=== PATIENT | male | born 1950 | race Caucasian/White ===

== ENCOUNTER → 2018-02-02 09:27 | Outpatient (CLI) | payer MEDICARE, SELFPAY ==
[2018-02-02 11:24] LABS: Alanine Aminotransferase 39 U/L (12-78); Albumin Level 3.8 gm/dL (3.4-5.0); Albumin/Globulin Ratio 1.2 (1.1-1.8); Alkaline Phosphatase 82 U/L (46-116); Anion Gap 16.1 mEq/L (5-15); Aspartate Amino Transferase 20 U/L (15-37); Bilirubin,Total 0.6 mg/dL (0.2-1.0); Blood Urea Nitrogen 13 mg/dL (7-18); Calcium 8.8 mg/dL (8.5-10.1); Carbon Dioxide 25 mmol/L (21.0-32.0); Chloride 106 mmol/L (98-107); Cholesterol 182 mg/dL (140-200); Creatinine,Serum 0.97 mg/dL (0.70-1.30); Estimated Glomerular Filt Rate 77 ml/min (>60); GFR (African American) 93 ML/MIN (>60); Globulin 3.1 gm/dl (1.3-3.2); Glucose 107 mg/dL (74-106); HDL Cholesterol 45 mg/dL (27-67); LDL Cholesterol 114 mg/dL (0-130); Potassium 4.1 mmoL/L (3.5-5.1); Sodium 143 mmol/L (136-145); Total Protein,Serum 6.9 gm/dL (6.4-8.2); Triglycerides 116 mg/dL (30-200); VLDL Cholesterol 23 mg/dL (0-40)
== END ==
PROVIDERS: Visit Provider Family Medicine
DX: E78.5 Hyperlipidemia, unspecified (principal)
CPT/HCPCS: 36415; 80053; 80061

== ENCOUNTER → 2018-07-30 08:36 | Outpatient (CLI) | payer MEDICARE, SELFPAY ==
[2018-07-30 09:55] LABS: Alanine Aminotransferase 39 U/L (12-78); Albumin Level 3.9 gm/dL (3.4-5.0); Albumin/Globulin Ratio 1.3 (1.1-1.8); Alkaline Phosphatase 76 U/L (46-116); Aspartate Amino Transferase 22 U/L (15-37); Blood Urea Nitrogen 12 mg/dL (7-18); Calcium 8.9 mg/dL (8.5-10.1); Carbon Dioxide 29 mmol/L (21.0-32.0); Chloride 107 mmol/L (98-107); Chol/HDL Ratio 4.1 (1-3.5); Cholesterol 192 mg/dL (140-200); Creatinine,Serum 0.97 mg/dL (0.70-1.30); Estimated Glomerular Filt Rate 77 ml/min (>60); GFR (African American) 93 ML/MIN (>60); Globulin 3.1 gm/dl (1.3-3.2); Glucose 104 mg/dL (74-106); HDL Cholesterol 47 mg/dL (27-67); LDL Cholesterol 115 mg/dL (0-130); Sodium 143 mmol/L (136-145); Triglycerides 152 mg/dL (30-200); VLDL Cholesterol 30 mg/dL (0-40)
== END ==
PROVIDERS: PCP Family Medicine; Visit Provider Family Medicine
DX: E78.5 Hyperlipidemia, unspecified (principal); Z12.5 Encounter for screening for malignant neoplasm of prostate
CPT/HCPCS: 36415; 80053; 80061; G0103

== ENCOUNTER → 2018-09-03 15:26 | Outpatient (CLI) | payer MEDICARE, SELFPAY ==
--- NOTE | 2018-09-03 15:31 | XR_ITS ---
XR chest 2V HISTORY: Cough ITS.REASON: ASTHMA ORDERING PHYSICIAN: Niko Watkins MD PATIENT AGE: 68 years Technique: PA and lateral chest COMPARISON: PA and lateral chest from 12/29/2012. Also portal chest from 03/24/2017. FINDINGS: The lungs appear well expanded clear with no active disease. Heart saw and mediastinal structures unremarkable. Chest wall T-spine unremarkable. Mild apical pleural parenchymal scarring and thickening. The cardiomediastinal silhouette and pulmonary vascularity are within normal limits. The lungs are clear without infiltrates, suspicious nodules, or pleural effusions. No acute bony abnormalities. IMPRESSION: Stable chest nothing definitely acute. Lungs clear.
== END ==
PROVIDERS: PCP Family Medicine; Visit Provider Family Medicine
DX: R53.83 Other fatigue (principal); J45.20 Mild intermittent asthma, uncomplicated
CPT/HCPCS: 71046

== ENCOUNTER → 2019-01-29 08:42 | Outpatient (CLI) | payer MEDICARE, SELFPAY ==
[2019-01-29 10:31] LABS: Alanine Aminotransferase 42 U/L (12-78); Albumin Level 3.9 gm/dL (3.4-5.0); Albumin/Globulin Ratio 1.3 (1.1-1.8); Alkaline Phosphatase 72 U/L (46-116); Anion Gap 12.1 mEq/L (5-15); Aspartate Amino Transferase 16 U/L (15-37); Bilirubin,Total 0.6 mg/dL (0.2-1.0); Blood Urea Nitrogen 7 mg/dL (7-18); Calcium 8.7 mg/dL (8.5-10.1); Carbon Dioxide 30 mmol/L (21.0-32.0); Chloride 107 mmol/L (98-107); Chol/HDL Ratio 3.9 (1-3.5); Cholesterol 170 mg/dL (140-200); Creatinine,Serum 1.06 mg/dL (0.70-1.30); Estimated Glomerular Filt Rate 69 ml/min (>60); GFR (African American) 84 ML/MIN (>60); Globulin 3.1 gm/dl (1.3-3.2); Glucose 101 mg/dL (74-106); HDL Cholesterol 44 mg/dL (27-67); LDL Cholesterol 91 mg/dL (0-130); Potassium 4.1 mmoL/L (3.5-5.1); Sodium 145 mmol/L (136-145); Triglycerides 174 mg/dL (30-200); VLDL Cholesterol 35 mg/dL (0-40)
[2019-02-05 07:07] LABS: Vitamin D 25 Hydroxy 24.7 ng/mL (30.0-100.0)
== END ==
PROVIDERS: Visit Provider Family Medicine
DX: E78.5 Hyperlipidemia, unspecified (principal)
CPT/HCPCS: 36415; 80053; 80061; 82652

== ENCOUNTER → 2019-08-02 09:31 | Outpatient (CLI) | payer MEDICARE, SELFPAY ==
[2019-08-02 13:08] LABS: Alanine Aminotransferase 36 U/L (12-78); Albumin Level 3.8 gm/dL (3.4-5.0); Albumin/Globulin Ratio 1.3 (1.1-1.8); Alkaline Phosphatase 67 U/L (46-116); Aspartate Amino Transferase 18 U/L (15-37); Bilirubin,Total 0.9 mg/dL (0.2-1.0); Blood Urea Nitrogen 8 mg/dL (7-18); Carbon Dioxide 30 mmol/L (21.0-32.0); Chloride 105 mmol/L (98-107); Chol/HDL Ratio 3.7 (1-3.5); Cholesterol 170 mg/dL (140-200); Creatinine,Serum 0.96 mg/dL (0.70-1.30); Estimated Glomerular Filt Rate 78 ml/min (>60); GFR (African American) 94 ML/MIN (>60); Glucose 93 mg/dL (74-106); HDL Cholesterol 46 mg/dL (27-67); LDL Cholesterol 96 mg/dL (0-130); Prostate Specific Ag Screen 1.1 ng/mL (0.0-4.0); Sodium 144 mmol/L (136-145); Total Protein,Serum 6.8 gm/dL (6.4-8.2); Triglycerides 140 mg/dL (30-200); VLDL Cholesterol 28 mg/dL (0-40)
[2019-08-03 20:05] LABS: Vitamin D 25 Hydroxy 34.4 ng/mL (30.0-100.0)
== END ==
PROVIDERS: Visit Provider Family Medicine
DX: E78.5 Hyperlipidemia, unspecified (principal); E55.9 Vitamin D deficiency, unspecified; Z12.5 Encounter for screening for malignant neoplasm of prostate
CPT/HCPCS: 36415; 80053; 80061; 82652; G0103

== ENCOUNTER → 2020-01-30 08:52 | Outpatient (CLI) | payer MEDICARE, SELFPAY ==
[2020-01-30 09:37] LABS: Basophils % 0.7 % (0.1-2.0); Eosinophils # 0.1 K/mm3 (0.0-0.4); Eosinophils % 1.3 % (0.1-12.0); Hematocrit 42.1 % (42.0-52.0); Hemoglobin 14.5 g/dL (14.1-18.0); Lymphocytes # 1.3 K/mm3 (0.7-4.5); Lymphocytes % 29.3 % (10-50); Mean Corpuscular HGB Conc 34.5 g/dL (31.8-35.4); Mean Corpuscular Hemoglobin 31.2 pg (27.0-31.2); Mean Corpuscular Volume 90.3 fl (80-94); Mean Platelet Volume 7.6 fl (7.4-10.4); Monocytes # 0.2 K/mm3 (0.1-1.0); Monocytes % 3.5 % (1.7-9.3); Neutrophils % 65.1 % (37.0-80.0); Platelet Count 275 K/mm3 (142-424); Red Blood Count 4.66 M/mm3 (4.60-6.20); White Blood Count 4.6 K/mm3 (4.8-10.8)
[2020-01-30 09:43] LABS: Chloride 106 mmol/L (98-107); Potassium 4.2 mmoL/L (3.5-5.1); Sodium 141 mmol/L (136-145)
[2020-01-30 09:45] LABS: Blood Urea Nitrogen 8 mg/dl (9-20); Estimated Glomerular Filt Rate 84 ml/min (>60); GFR (African American) 101 ML/MIN (>60)
[2020-01-30 09:46] LABS: Alanine Aminotransferase 33 U/L (12-78); Albumin Level 4.2 g/dl (3.5-5.0); Albumin/Globulin Ratio 1.8 (1.1-1.8); Alkaline Phosphatase 57 U/L (38-126); Anion Gap 9.2 mEq/L (5-15); Aspartate Amino Transferase 32 U/L (17-59); Bilirubin,Total 0.8 mg/dl (0.2-1.3); Calcium 9.4 mg/dl (8.4-10.2); Carbon Dioxide 30 mmol/L (22.0-30.0); Chol/HDL Ratio 3.6 (1-3.5); Cholesterol 144 mg/dl (140-200); Globulin 2.4 g/dL (1.3-3.2); Glucose 96 mg/dl (74-100); HDL Cholesterol 40 mg/dl (40-60); Total Protein,Serum 6.6 g/dl (6.3-8.2); Triglycerides 120 mg/dl (30-150); VLDL Cholesterol 24 mg/dL (0-40)
[2020-01-30 09:57] LABS: Direct LDL Cholesterol 98.39 mg/dL (100-129)
[2020-01-31 11:27] LABS: Vitamin D 25 Hydroxy 37.1 ng/mL (30.0-100.0)
== END ==
PROVIDERS: Visit Provider Family Medicine
DX: E78.5 Hyperlipidemia, unspecified (principal); E55.9 Vitamin D deficiency, unspecified
CPT/HCPCS: 36415; 80053; 80061; 82652; 85025

== ENCOUNTER → 2020-08-03 09:52 | Outpatient (CLI) | payer MEDICARE, SELFPAY ==
[2020-08-03 10:56] LABS: Alanine Aminotransferase 33 U/L (12-78); Albumin Level 4.4 g/dl (3.5-5.0); Albumin/Globulin Ratio 1.7 (1.1-1.8); Alkaline Phosphatase 65 U/L (38-126); Anion Gap 13.1 mEq/L (5-15); Aspartate Amino Transferase 31 U/L (17-59); Bilirubin,Total 0.9 mg/dl (0.2-1.3); Blood Urea Nitrogen 9 mg/dl (9-20); Calcium 9.4 mg/dl (8.4-10.2); Carbon Dioxide 27 mmol/L (22.0-30.0); Chloride 107 mmol/L (98-107); Chol/HDL Ratio 3.7 (1-3.5); Cholesterol 165 mg/dl (140-200); Estimated Glomerular Filt Rate 83 ml/min (>60); GFR (African American) 101 ML/MIN (>60); Globulin 2.6 g/dL (1.3-3.2); Glucose 103 mg/dl (74-100); HDL Cholesterol 45 mg/dl (40-60); Potassium 4.1 mmoL/L (3.5-5.1); Sodium 143 mmol/L (136-145); Triglycerides 183 mg/dl (30-150); VLDL Cholesterol 37 mg/dL (0-40)
[2020-08-03 11:06] LABS: Direct LDL Cholesterol 97.67 mg/dL (100-129)
[2020-08-03 11:26] LABS: Prostate Specific Ag Screen 0.9 ng/ml (0.0-4.0)
== END ==
PROVIDERS: Visit Provider Family Medicine
DX: E78.5 Hyperlipidemia, unspecified (principal); E55.9 Vitamin D deficiency, unspecified; Z12.5 Encounter for screening for malignant neoplasm of prostate
CPT/HCPCS: 36415; 80053; 80061; G0103

== ENCOUNTER → 2021-01-29 08:31 | Outpatient (CLI) | payer MEDICARE, SELFPAY ==
[2021-01-29 10:05] LABS: Alanine Aminotransferase 33 U/L (12-78); Albumin Level 4.4 g/dl (3.5-5.0); Albumin/Globulin Ratio 1.8 (1.1-1.8); Alkaline Phosphatase 61 U/L (38-126); Anion Gap 11.2 mEq/L (5-15); Aspartate Amino Transferase 31 U/L (17-59); Bilirubin,Total 0.8 mg/dl (0.2-1.3); Blood Urea Nitrogen 10 mg/dl (9-20); Calcium 9.4 mg/dl (8.4-10.2); Carbon Dioxide 26 mmol/L (22.0-30.0); Chloride 108 mmol/L (98-107); Chol/HDL Ratio 3.9 (1-3.5); Cholesterol 173 mg/dl (140-200); Estimated Glomerular Filt Rate 83 ml/min (>60); GFR (African American) 101 ML/MIN (>60); Globulin 2.4 g/dL (1.3-3.2); Glucose 99 mg/dl (74-100); HDL Cholesterol 44 mg/dl (40-60); Potassium 4.2 mmoL/L (3.5-5.1); Sodium 141 mmol/L (136-145); Total Protein,Serum 6.8 g/dl (6.3-8.2); Triglycerides 129 mg/dl (30-150); VLDL Cholesterol 26 mg/dL (0-40)
[2021-01-29 10:16] LABS: Direct LDL Cholesterol 101.65 mg/dL (100-129)
== END ==
PROVIDERS: Visit Provider Family Medicine
DX: E78.5 Hyperlipidemia, unspecified (principal)
CPT/HCPCS: 36415; 80053; 80061

== ENCOUNTER → 2021-03-02 10:22 | Outpatient (CLI) | payer MEDICARE, SELFPAY ==
--- NOTE | 2021-03-02 10:26 | CA_ITS ---
APPROVED REPORT Nanotechnology Engineering Technician: Adalgisa Duff RVT Laterality: Bilateral Study Quality: Good Indications: Dizziness and Vertigo Risk Factors Hyperlipidemia Doppler Spectral Velocity Analysis ECA (R) 73.20/12.80 cm/s ECA (L) 152.20/27.90 cm/s Jan (R) 49.40/11.60 cm/s dICA (L) 89.30/25.00 cm/s pICA (R) 68.70/20.50 cm/s Jan (L) 82.80/22.50 cm/s pICA (L) 64.90/18.00 cm/s dCCA (R) 86.70/16.70 cm/s pCCA (R) 73.80/12.80 cm/s dCCA (L) 84.50/18.70 cm/s pCCA (L) 92.00/20.20 cm/s Vert (R) 31.50/6.40 cm/s ICA/CCA 0.79 Vert (L) 49.20/12.80 cm/s ICA/CCA 1.06 Findings Study suggests less than 20% stenosis of the bilateral internal cartoid arteries. Distal right internal cartoid was diffcult to visualize. Antegrade flow seen bilateral vertebral arteries. Conclusion Study suggests less than 20% stenosis of the bilateral internal cartoid arteries. Distal right internal cartoid was diffcult to visualize. Antegrade flow seen bilateral vertebral arteries. Electronically signed by : Fran Berry MD 03/02/2021 16:25:31
== END ==
PROVIDERS: PCP Family Medicine; Visit Provider Family Medicine
DX: R42 Dizziness and giddiness (principal)
CPT/HCPCS: 93880

== ENCOUNTER → 2021-03-30 20:03 | Outpatient (CLI) | payer MEDICARE, SELFPAY | PROVIDERS: PCP Family Medicine; Visit Provider Nurse Practitioner Family | DX: G47.33 Obstructive sleep apnea (adult) (pediatric) (principal); G47.61 Periodic limb movement disorder | CPT/HCPCS: 95811 ==

== ENCOUNTER → 2021-08-02 08:35 | Outpatient (CLI) | payer MEDICARE, SELFPAY ==
[2021-08-02 09:08] LABS: Basophils % 0.8 % (0.1-2.0); Eosinophils # 0.1 K/mm3 (0.0-0.4); Eosinophils % 2.2 % (0.1-12.0); Hematocrit 45.5 % (42.0-52.0); Hemoglobin 15.2 g/dL (14.1-18.0); Lymphocytes # 1.4 K/mm3 (0.7-4.5); Lymphocytes % 26.9 % (10-50); Mean Corpuscular HGB Conc 33.4 g/dL (31.8-35.4); Mean Corpuscular Hemoglobin 31.4 pg (27.0-31.2); Mean Corpuscular Volume 94.3 fl (80-94); Monocytes # 0.2 K/mm3 (0.1-1.0); Monocytes % 4.2 % (1.7-9.3); Neutrophils # 3.4 K/mm3 (1.8-7.8); Platelet Count 279 K/mm3 (142-424); Red Blood Count 4.83 M/mm3 (4.60-6.20); Red Cell Distribution Width 12.6 % (11.5-17.5); White Blood Count 5.2 K/mm3 (4.8-10.8)
[2021-08-02 09:14] LABS: Alanine Aminotransferase 45 U/L (12-78); Albumin Level 4.1 g/dl (3.5-5.0); Albumin/Globulin Ratio 1.6 (1.1-1.8); Alkaline Phosphatase 58 U/L (38-126); Anion Gap 11.9 mEq/L (5-15); Aspartate Amino Transferase 44 U/L (17-59); Bilirubin,Total 0.5 mg/dl (0.2-1.3); Blood Urea Nitrogen 6 mg/dl (9-20); Calcium 8.7 mg/dl (8.4-10.2); Carbon Dioxide 28 mmol/L (22.0-30.0); Chloride 106 mmol/L (98-107); Chol/HDL Ratio 3.3 (1-3.5); Cholesterol 169 mg/dl (140-200); Estimated Glomerular Filt Rate 111 ml/min (>60); GFR (African American) 135 ML/MIN (>60); Globulin 2.5 g/dL (1.3-3.2); Glucose 105 mg/dl (74-100); HDL Cholesterol 52 mg/dl (40-60); Potassium 3.9 mmoL/L (3.5-5.1); Sodium 142 mmol/L (136-145); Total Protein,Serum 6.6 g/dl (6.3-8.2); Triglycerides 88 mg/dl (30-150); VLDL Cholesterol 18 mg/dL (0-40)
[2021-08-02 09:26] LABS: Direct LDL Cholesterol 96.28 mg/dL (100-129)
[2021-08-02 09:45] LABS: Prostate Specific Ag Screen 1.2 ng/ml (0.0-4.0); Thyroid Stimulating Hormone 1.63 uIU/mL (0.465-4.68)
[2021-08-02 11:06] LABS: 25-OH Vitamin D, Total 69.1 ng/mL (30-100)
== END ==
PROVIDERS: Visit Provider Family Medicine
DX: R03.0 Elevated blood-pressure reading, without diagnosis of hypertension (principal); E78.5 Hyperlipidemia, unspecified; Z12.5 Encounter for screening for malignant neoplasm of prostate; Z13.29 Encounter for screening for other suspected endocrine disorder; Z79.899 Other long term (current) drug therapy
CPT/HCPCS: 36415; 80053; 80061; 82306; 84443; 85025; G0103

== ENCOUNTER 2021-10-11 09:03 | Emergency (ER) | payer MEDICARE, SELFPAY ==
[2021-10-11 09:15] VITALS: BP 148/88; PULSE 69; RESP 19; TEMP 37; O2SAT 98; BMI 27.6
[2021-10-11 09:35] LABS: UTC Influenza A Antigen Negative (Negative)
[2021-10-11 09:36] LABS: UTC Influenza B Antigen Negative (Negative)
--- NOTE | 2021-10-11 09:54 | HMH.EDUTC ---
[facility] [place] Disposition Clinical Impression: Exposure to influenza Disposition: Home, Self-Care Condition on Discharge: Good Instructions: DI for COVID-19 (Suspected or Confirmed ), Preventing the Spread of Coronavirus Discharge Instructions, Influenza Additional Instructions: ? Lots of rest ? Increase Fluids water, Gatorade, powerade, pedialyte,if /toddler/child ? Alternate Tylenol and / or ibuprofen as discussed for fever, aches, chills Follow up IMMEDIATELY with your family doctor for new or worsening Symptoms OR no noticeable improvement over the next 48-72 hours, 911 for difficulty or breathing ? You or your child area contagious until no fever, aches, chills for 24 hours with medication for symptoms ? Help Prevent the spread of influenza: ? Wash your hands often. Use soap and water. Wash your hands after you use the bathroom, change a child's diapers, or sneeze. Wash your hands before you prepare or eat food. Use gel hand cleanser that has 60% alcohol, when soap and water are not available. Do not touch your eyes, nose, or mouth unless you have washed your hands first. ? Cover your mouth when you sneeze or cough. Cough into a tissue or the bend of your arm. If you use a tissue, throw it away immediately and wash your hands. ? Clean shared items with a germ-killing spool cleaner. Clean table surfaces, doorknobs, and light switches. Do not share towels, silverware, and dishes with people who are sick. Wash bed sheets, towels, silverware, and dishes with soap and water. ? Wear a mask over your mouth and nose if you are sick. The face mask may help protect others from becoming infected with the flu. Wear the mask when in common areas of your home or if you seek care with a healthcare provider. ? Stay away from others if you are sick. Stay at home until 24 hours after your fever and symptoms are gone. 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 C Vit D and Zinc if you can take them Referrals: Niko Watkins MD [Primary Care Provider] - As needed Time of Disposition: 09:57 Medical Decision Making - Jarocho Inquiry Pt receiving controlled substance: No Jarocho was queried for this patient: No Vital Signs: 10/11/21 09:15 Temperature 98.6 F Temperature Source Oral Pulse Rate [Right Brachial] 69 Respiratory Rate 19 Blood Pressure [Right Arm] 148/88 H Blood Pressure Mean [Right Arm] 108 Blood Pressure Source [Right Arm] Automatic Cuff Blood Pressure Position [Right Arm] Sitting 02 Sat by Pulse Oximetry 98 Oxygen Delivery Method Room Air - Lab Data Lab results reviewed: Yes: I reviewed the patient's lab results. Lab Results 10/11/21 09:16: Influenza Type A Ag Negative, Influenza Type B Ag Negative Orders (Tests/Meds): ORDERS Category Date Time Status Covid-19 Nasal PCR ([facility]) Routine Lab 10/11/21 09:15 Received Medical Decision Narrative: Patient declined Tamiflu [facility] [place] HPI - General Stated complaint: covid and flu test Time Seen by Provider: 10/11/21 09:54 Mode of Arrival: Ambulatory Source of Information: Patient Limitations: No Limitations Description of Symptoms (Recalled from Triage Doc. by RN): PATIENT REQUESTING COVID AND FLU TEST D/T BEING SICK. DENIES ANY SYMPTOMS HEENT Symptoms (Recalled from RN notes): No Resp Symptoms (Recalled from RN notes): No Skin Symptoms (Recalled from RN notes): No MS Symptoms (Recalled from RN notes): No Functional Status (Recalled from RN notes): WNL - History of Present Illness Provider Complaint: Patient state that his has
[2021-10-11 10:08] VITALS: BP 148/88; PULSE 69; RESP 19; TEMP 37; O2SAT 98
== END 2021-10-11 10:17 | disposition home or self-care (01) ==
PROVIDERS: Emergency Provider Nurse Practitioner; PCP Family Medicine
DX: Z20.822 Contact with and (suspected) exposure to COVID-19 (principal); E78.5 Hyperlipidemia, unspecified
CPT/HCPCS: G0463; 87804; 99202; C9803; U0003; U0005

== ENCOUNTER → 2022-01-28 08:49 | Outpatient (CLI) | payer MEDICARE, SELFPAY ==
[2022-01-28 10:16] LABS: Alanine Aminotransferase 39 U/L (12-78); Albumin Level 4.2 g/dl (3.5-5.0); Albumin/Globulin Ratio 1.9 (1.1-1.8); Alkaline Phosphatase 61 U/L (38-126); Anion Gap 8.3 mEq/L (5-15); Aspartate Amino Transferase 37 U/L (17-59); Bilirubin,Total 0.8 mg/dl (0.2-1.3); Blood Urea Nitrogen 9 mg/dl (9-20); Calcium 9.1 mg/dl (8.4-10.2); Carbon Dioxide 30 mmol/L (22.0-30.0); Chloride 105 mmol/L (98-107); Chol/HDL Ratio 3.7 (1-3.5); Cholesterol 188 mg/dl (140-200); Estimated Glomerular Filt Rate 95 ml/min (>60); GFR (African American) 115 ML/MIN (>60); Globulin 2.2 g/dL (1.3-3.2); Glucose 103 mg/dl (74-100); HDL Cholesterol 51 mg/dl (40-60); Potassium 4.3 mmoL/L (3.5-5.1); Sodium 139 mmol/L (136-145); Total Protein,Serum 6.4 g/dl (6.3-8.2); Triglycerides 91 mg/dl (30-150); VLDL Cholesterol 18 mg/dL (0-40)
[2022-01-28 10:26] LABS: Direct LDL Cholesterol 102.81 mg/dL (100-129)
== END ==
PROVIDERS: PCP Family Medicine; Visit Provider Family Medicine
DX: E78.5 Hyperlipidemia, unspecified (principal); E55.9 Vitamin D deficiency, unspecified
CPT/HCPCS: 36415; 80053; 80061; 82306

== ENCOUNTER → 2022-08-01 06:57 | Outpatient (CLI) | payer MEDICARE, SELFPAY ==
[2022-08-01 08:51] LABS: Hemoglobin A1C 5.1 % (4.0-6.0)
[2022-08-01 09:22] LABS: Alanine Aminotransferase 38 U/L (12-78); Albumin/Globulin Ratio 1.7 (1.1-1.8); Alkaline Phosphatase 68 U/L (38-126); Anion Gap 12.3 mEq/L (5-15); Aspartate Amino Transferase 38 U/L (17-59); Bilirubin,Total 0.7 mg/dl (0.2-1.3); Blood Urea Nitrogen 9 mg/dl (9-20); Calcium 8.7 mg/dl (8.4-10.2); Carbon Dioxide 33 mmol/L (22.0-30.0); Chloride 101 mmol/L (98-107); Chol/HDL Ratio 3.2 (1-3.5); Cholesterol 176 mg/dl (140-200); Estimated Glomerular Filt Rate 83 ml/min (>60); GFR (African American) 100 ML/MIN (>60); Globulin 2.4 g/dL (1.3-3.2); Glucose 88 mg/dl (74-100); HDL Cholesterol 55 mg/dl (40-60); Potassium 4.3 mmoL/L (3.5-5.1); Sodium 142 mmol/L (136-145); Total Protein,Serum 6.4 g/dl (6.3-8.2); Triglycerides 88 mg/dl (30-150); VLDL Cholesterol 18 mg/dL (0-40)
[2022-08-01 09:33] LABS: Direct LDL Cholesterol 98.28 mg/dL (100-129)
[2022-08-01 09:53] LABS: Prostate Specific Ag Screen 1.2 ng/ml (0.0-4.0)
== END ==
PROVIDERS: PCP Family Medicine; Visit Provider Family Medicine
DX: E78.5 Hyperlipidemia, unspecified (principal); R23.9 Unspecified skin changes; Z12.5 Encounter for screening for malignant neoplasm of prostate
CPT/HCPCS: 36415; 80053; 80061; 83036; G0103

== ENCOUNTER 2022-08-24 08:03 | Emergency (ER) | payer MEDICARE, SELFPAY ==
--- NOTE | 2022-08-24 08:28 | EXP.UTC ---
Discharge Plan Disposition Patient Disposition: Home, Self-Care Condition: Good Prescriptions Prescriptions: New benzonatate [benzonatate] 100 mg capsule 100 mg PO TIDP PRN (Reason: Cough) Qty: 30 0RF ondansetron 4 mg Tablet,Disintegrating 4 mg PO Q8H PRN (Reason: Nausea) Qty: 12 0RF No Action albuterol sulfate 90 mcg/actuation HFA aerosol inhaler 1 inh INHALATION PRN fluticasone furoate 100 mcg/actuation blister with device 1 inh INHALATION PRN fluoxetine 10 mg capsule 10 mg PO DAILY Arnuity Ellipta 100 mcg/actuation blister with device 1 inh inhalation DAILY pravastatin 40 MG tablet 40 mg PO DAILY montelukast 10 MG tablet 10 mg PO DAILY loratadine 10 MG capsule 10 mg PO DAILY niacin 500 mg capsule, extended release 500 mg PO BID oseltamivir 75 MG capsule 75 mg PO DAILY Qty: 10 0RF Referrals Follow up/Referrals: Niko Watkins MD [Primary Care Provider] - See instructions Activity Restrictions/Add. Instructions Additional Instructions/Restrictions: Drink plenty of fluids. Take tylenol or ibuprofen for pain or fever. Take the medications as directed. Follow up with your regular doctor. GO TO THE ER FOR ANY WORSENING SYMPTOMS Clinical Impressions Clinical Impression: COVID-19, Viral syndrome Discharge ED Provider: Donta Santos [facility] General Stated complaint: Covid/Flu test, Covid+ 08/23 Time Seen by Provider: 08/24/22 08:25 History of Present Illness Provider Complaint: He is here to have a covid-19 pcr test. He tested positive on a home test yesterday. He wants to confirm this. Related Data Home Medications Medication Instructions Recorded Confirmed loratadine 10 mg capsule 10 mg PO DAILY allergies 08/08/18 08/17/22 montelukast 10 mg tablet 10 mg PO DAILY allergies 08/08/18 08/17/22 pravastatin 40 mg tablet 40 mg PO DAILY Cholesterol 08/08/18 08/17/22 albuterol sulfate 90 mcg/actuation 1 inh inhalation PRN 06/13/22 08/17/22 aerosol inhaler fluoxetine 10 mg capsule 10 mg PO DAILY 06/13/22 08/17/22 fluticasone furoate 100 1 inh inhalation PRN 06/13/22 08/17/22 mcg/actuation blister powder for inhalation fluticasone furoate 100 1 inh inhalation DAILY 06/13/22 08/17/22 mcg/actuation blister powder for inhalation (Arnuity Ellipta) niacin 500 mg capsule,extended 500 mg PO BID Supplement 06/13/22 08/17/22 release Previous Rx's Medication Instructions Recorded oseltamivir 75 mg capsule 75 mg PO DAILY #10 caps 10/11/21 benzonatate 100 mg capsule 100 mg PO TIDP PRN Cough #30 caps 08/24/22 ondansetron 4 mg disintegrating 4 mg PO Q8H PRN Nausea #12 tabs 08/24/22 tablet Allergies Allergy/AdvReac Type Severity Reaction Status Date / Time No Known Allergies Allergy Verified 08/24/22 08:49 PFSH PFSH Family History Other Cancer Heart attack Social History Smoking Status: Never smoker alcohol intake: never substance use type: denies use current occupational status: employed Travel in the last 8 weeks: None household members: spouse housing: house marital status: caffeine: Yes ROS Obtained: Yes All systems reviewed & no additional complaints except as documented Constitutional Constitutional: Reports chills and Reports fever(s) Eyes Eyes: Denies eye discharge ENT Ears, Nose, Mouth, and Throat: Reports as per HPI Cardiovascular Cardiovascular: Denies chest pain Respiratory Respiratory: Denies shortness of breath, Denies chest congestion, Reports cough, Denies stridor and Denies wheezing Gastrointestinal Gastrointestingal: Reports nausea; Denies abdominal pain, constipation, cramping, diarrhea or vomiting Musculoskeletal Musculoskeletal: Denies arthralgias Integumentary/Breasts Skin/Breast: Denies rash Neurologic Neurologic: Denies paresth
[2022-08-24 08:40] LABS: UTC Influenza A Antigen Negative (Negative); UTC Influenza B Antigen Negative (Negative)
[2022-08-24 08:45] VITALS: BP 153/90; PULSE 63; RESP 18; TEMP 36.6; O2SAT 96; BMI 27.6
[2022-08-24 09:13] VITALS: BP 153/90; PULSE 63; RESP 18; TEMP 36.6
== END 2022-08-24 09:14 | disposition home or self-care (01) ==
PROVIDERS: Emergency Provider Nurse Practitioner Family; PCP Family Medicine
DX: U07.1 COVID-19 (principal)
CPT/HCPCS: 87804; 99212; C9803; G0463; U0003; U0005

== ENCOUNTER → 2023-02-01 07:19 | Outpatient (CLI) | payer MEDICARE, SELFPAY ==
[2023-02-01 09:18] LABS: Chloride 104 mmol/L (98-107); Sodium 141 mmol/L (136-145)
[2023-02-01 09:20] LABS: Blood Urea Nitrogen 10 mg/dl (9-20); Estimated Glomerular Filt Rate 83 ml/min (>60); GFR (African American) 100 ML/MIN (>60)
[2023-02-01 09:21] LABS: Alanine Aminotransferase 35 U/L (12-78); Albumin Level 4.2 g/dl (3.5-5.0); Albumin/Globulin Ratio 1.9 (1.1-1.8); Alkaline Phosphatase 49 U/L (38-126); Aspartate Amino Transferase 36 U/L (17-59); Bilirubin,Total 0.9 mg/dl (0.2-1.3); Calcium 8.7 mg/dl (8.4-10.2); Carbon Dioxide 33 mmol/L (22.0-30.0); Cholesterol 156 mg/dl (140-200); Globulin 2.2 g/dL (1.3-3.2); Glucose 78 mg/dl (74-100); Total Protein,Serum 6.4 g/dl (6.3-8.2); Triglycerides 90 mg/dl (30-150); VLDL Cholesterol 18 mg/dL (0-40)
[2023-02-01 09:32] LABS: Direct LDL Cholesterol 85.78 mg/dL (100-129)
[2023-02-01 10:13] LABS: 25-OH Vitamin D, Total 57.9 ng/mL (30-100)
[2023-02-01 10:16] LABS: Chol/HDL Ratio 3.2 (1-3.5); HDL Cholesterol 49 mg/dl (40-60)
== END ==
PROVIDERS: PCP Family Medicine; Visit Provider Family Medicine
DX: E78.5 Hyperlipidemia, unspecified (principal); E55.9 Vitamin D deficiency, unspecified
CPT/HCPCS: 36415; 80053; 80061; 82306

== ENCOUNTER → 2023-08-01 08:18 | Outpatient (CLI) | payer MEDICARE, SELFPAY ==
[2023-08-01 09:06] LABS: Alanine Aminotransferase 46 U/L (12-78); Albumin/Globulin Ratio 1.6 (1.1-1.8); Alkaline Phosphatase 53 U/L (38-126); Anion Gap 8.2 mEq/L (5-15); Aspartate Amino Transferase 47 U/L (17-59); Bilirubin,Total 0.9 mg/dl (0.2-1.3); Blood Urea Nitrogen 11 mg/dl (9-20); Calcium 8.9 mg/dl (8.4-10.2); Carbon Dioxide 33 mmol/L (22.0-30.0); Chloride 103 mmol/L (98-107); Chol/HDL Ratio 2.9 (1-3.5); Cholesterol 167 mg/dl (140-200); Estimated Glomerular Filt Rate 95 ml/min (>60); GFR (African American) 115 ML/MIN (>60); Globulin 2.5 g/dL (1.3-3.2); Glucose 93 mg/dl (74-100); HDL Cholesterol 57 mg/dl (40-60); Potassium 4.2 mmoL/L (3.5-5.1); Sodium 140 mmol/L (136-145); Total Protein,Serum 6.5 g/dl (6.3-8.2); Triglycerides 64 mg/dl (30-150); VLDL Cholesterol 13 mg/dL (0-40)
[2023-08-01 09:17] LABS: Direct LDL Cholesterol 89.69 mg/dL (100-129)
[2023-08-01 10:05] LABS: 25-OH Vitamin D, Total 45.4 ng/mL (30-100)
== END ==
PROVIDERS: PCP Family Medicine; Visit Provider Family Medicine
DX: E78.5 Hyperlipidemia, unspecified (principal); Z12.5 Encounter for screening for malignant neoplasm of prostate; E55.9 Vitamin D deficiency, unspecified; Z68.27 Body mass index [BMI] 27.0-27.9, adult
CPT/HCPCS: 36415; 80053; 80061; 82306; G0103

== ENCOUNTER 2023-11-23 10:00 | Outpatient (RCR) | payer MEDICARE, SELFPAY ==
--- NOTE | 2023-11-02 14:38 | HMH.PTOPEV ---
PT Outpatient Evaluation Rehab PT Outpatient Evaluation Start: 11/02/23 12:57 Freq: Status: Active Protocol: Document 11/02/23 12:57 NATY (Rec: 11/02/23 14:38 NATY [id number]) E-signed By Darlin Jacobo, PT Outpatient Therapy Subjective History Subjective History Pt is a 73 y/o male who reports chronic mild LBP with recent worsening of pain a couple weeks ago. Pt reports he lifted a few things he probably shouldn't have that may have caused increased pain . Pt reports pain is localized to the central low back, denies LE symptoms or numbness /tingling. Pt denies having imaging on the low back. Pt reports he just finished a prescribed steroid pack which helped some with pain. Pt reports he had his first massage last week as well which also helped with pain. Pt reports pain is aggravated by sitting at his desk at work , lifting, bending forward, prolonged walking and transitioning to/from supine. 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 Chief Complaint Pain Symptom Type Ache,Dull Symptoms Relieved By Heat,Prescription Meds Symptoms Aggravated By Sitting,Bending/Stooping, Walking,Lifting Current Functional Limitations Lifting,Sitting,Walking, Bending/Stooping Symptom Description Constant but Variable Level of pain today (0-10) 1 Pain scale - at its best (0-10) 1 Pain scale - at its worst (0-10) 3 Lumbopelvic Eval Posture Thoracic Spine Posture Standing Position Flattened Lumbar Spine Posture Standing Position Flattened Palapation tenderness bilateral thoracic spinal tenderness Yes lumbar spinal tenderness Yes paraspinal tenderness Yes Lumbar/Sacral Palpation Findings Tenderness Accessory Movement T-spine Vertebrae Accessory Movements Central P/A [place] that Elicit Symptoms T11 bilateral T12 bilateral L-spine Vertebrae Accessory Movements Central P/A [place] that Elicit Symptoms L5 bilateral S1 bilateral Range of Motion Lumbar Spine Active Flexion Range of 60 Motion (degrees) Lumbar Spine Active Extension Range of 12 Motion (degrees) Left Lumbar Spine Lateral Flexion Active 14 Range of Motion (degrees) Right Lumbar Spine Lateral Flexion 16 Active Range of Motion (degrees) Manual Muscle Test Bilateral Knee Extension Strength Grade 5 Normal Knee Flexion Strength Grade 5 Normal Hip Flexion Strength Grade 5 Normal Hip Abduction Strength Grade 4 Good Hip Adduction Strength Grade 4 Good Hip Extension Strength Grade 4 Good Ankle Dorsiflexion Strength Grade 5 Normal DTR Rt Patellar 2+ Lt Patellar 2+ Rt Gastroc/Soleus 2+ Lt Gastroc/Soleus 2+ Altered Sensation Bilateral Comment equal and intact to light touch sensation Special Tests Hip Scouring (Quadrant) Test Negative Left,Negative Right Hip Cas (SHAI) Test Negative Left,Negative Right Sciatic Nerve Tension Test Negative Left,Negative Right Unilateral Straight Leg Raise (Lasegue) Negative Left,Negative Right Test Hip/Knee Eval ROM right Hip External Rotation Active Range of 30 Motion (degrees) Hip Internal Rotation Active Range of 30 Motion (degrees) left Hip External Rotation Active Range of 35 Motion (degrees) Hip Internal Rotation Active Range of 25 Motion (degrees) Oswestry Index Section 1 Pain Intensity The pain comes and goes and is moderate Section 2 Personal Care (Washing,Dresing) change my way of washing or dressing in order to avoid pain Section 3 Lifting I can lift heavy weights, but it gives me extra pain Section 4 Walking I have some pain when walking but it does not increase with distance Section 5 Sitting I can sit in my favorite chair for as long as I like Section 6 Standing I have some pain on standing, but it does not increase with time Section 7 Sleeping I get pain in bed, but it does not prevent me from sleeping well Section 8 Social Life My social life is normal but increases the degree of pain Section 9 Traveling I get some pain when traveling , but none of my usual forms of travel m Section 10 Changing Degreee of Pain My pain fluctuates, but overall is definitely getting better Score and Risk Level Oswestry Sc 10 Oswestry Risk Level Mild Disability Outpatient Therapy Assessment Impairments Problems/Impairmments Palpation Tenderness,Impaired Range of Motion,Impaired Strength,Impaired Walking, Impaired Sitting,Impaired Lifting,Impaired Squatting, Impaired Bending,Impaired Work Activities,Subjective C/O Pain,Impaired Self Care/Self Management Prognosis Rehab Potential Good Clinical Impression Consistent with Diagnosis Yes Short Term Goals Number of Weeks 3 Increase Range of Motion Yes: Improve lumbar flex AROM to at least 65 Improve Self Care/Self Management Yes Patient to be Ind w/ HEP Yes Electron Gun 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 Goals Number of Weeks 6 Increase Range of Motion Yes: Improve lumbar AROM to WNL Increase Strength Yes: Improve LE strength to 4+ -5/5 grossly to assist with function Restore Ability to Lift Objects to Waist Yes: 15# with proper mechanics Level to decrease risk of injury with ADLs Improve Oswestry Score Yes: Improve score to 7 or less to improve overall QOL Decrease Subjective C/O Pain Yes: Improve pain at worst to 1/10 to improve overall QOL Outpatient Therapy Plan of Care Treatment Plan May Include Therapeutic Exercise Including Home Yes Exercise Program Manual Therapy Techniques Yes Neuromuscular Re-education Yes Therapeutic Activities to Return to Yes Previous Functional/Work Level ADL/Self Care Education Yes Mechanical Traction Yes Dry Needling Yes Thermal Modalities Yes Electrical Stimulation Yes Ultrasound/Phonophoresis Yes Iontophoresis Yes Massage Yes Group Therapy for Medicare Yes Eval/Re-Eval Yes Frequency Times per week 2 Duration Number of Weeks 4-6 Addendums This patient is a candidate for social No or vocational rehab? Patient/Guardian verbally acknowledges Yes understanding of treatment program and consents to further treatment? Patient/Guardian verbally acknowledges Yes understanding of diagnosis, prognosis and goals for treatment? Eval Complexity PT Charges 17682 - Low Complexity Shoulder/Elbow Eval Shoulder Objective Measurements Elbow Objective Measurements PHYSICIAN CERTIFICATION: I certify the specified therapy services for Bennett Yap are required, authorized, and reviewed every 30 days.
== END 2023-11-23 11:20 | disposition home or self-care (01) ==
LOC: PT 10:00
PROVIDERS: PCP Family Medicine; Visit Provider Family Medicine
DX: M54.50 Low back pain, unspecified (principal)
CPT/HCPCS: 97010; 97014; 97110; 97163; G0283

== ENCOUNTER 2024-01-29 07:22 | Outpatient (CLI) | payer MEDICARE, SELFPAY ==
[2024-01-29 08:12] LABS: Chloride 108 mmol/L (98-107); Potassium 3.9 mmoL/L (3.5-5.1); Sodium 140 mmol/L (136-145)
[2024-01-29 08:15] LABS: Alanine Aminotransferase 37 U/L (12-78); Albumin Level 3.8 g/dl (3.5-5.0); Albumin/Globulin Ratio 1.5 (1.1-1.8); Alkaline Phosphatase 63 U/L (38-126); Anion Gap 3.9 mEq/L (5-15); Aspartate Amino Transferase 39 U/L (17-59); Bilirubin,Total 0.9 mg/dl (0.2-1.3); Blood Urea Nitrogen 15 mg/dl (9-20); Calcium 8.9 mg/dl (8.4-10.2); Carbon Dioxide 32 mmol/L (22.0-30.0); Chol/HDL Ratio 4.3 (1-3.5); Cholesterol 192 mg/dl (140-200); Estimated Glomerular Filt Rate 73 ml/min (>60); GFR (African American) 89 ML/MIN (>60); Globulin 2.5 g/dL (1.3-3.2); Glucose 101 mg/dl (74-100); HDL Cholesterol 45 mg/dl (40-60); Total Protein,Serum 6.3 g/dl (6.3-8.2); Triglycerides 80 mg/dl (30-150); VLDL Cholesterol 16 mg/dL (0-40)
[2024-01-29 08:27] LABS: Direct LDL Cholesterol 99.96 mg/dL (100-129)
== END 2024-01-29 23:59 | disposition home or self-care (01) ==
LOC: LAB 07:24
PROVIDERS: PCP Family Medicine; Visit Provider Family Medicine
DX: E78.5 Hyperlipidemia, unspecified (principal)
CPT/HCPCS: 36415; 80053; 80061

== ENCOUNTER 2024-07-29 07:04 | Outpatient (CLI) | payer MEDICARE, SELFPAY ==
[2024-07-29 09:06] LABS: Albumin Level 4.2 g/dl (3.5-5.0); Chloride 106 mmol/L (98-107); Potassium 4.1 mmoL/L (3.5-5.1); Sodium 140 mmol/L (136-145)
[2024-07-29 09:08] LABS: Blood Urea Nitrogen 8 mg/dl (9-20); Estimated Glomerular Filt Rate 82 ml/min (>60); GFR (African American) 100 ML/MIN (>60)
[2024-07-29 09:09] LABS: Alanine Aminotransferase 32 U/L (12-78); Albumin/Globulin Ratio 1.8 (1.1-1.8); Alkaline Phosphatase 62 U/L (38-126); Anion Gap 7.1 mEq/L (5-15); Aspartate Amino Transferase 39 U/L (17-59); Bilirubin,Total 0.8 mg/dl (0.2-1.3); Calcium 9.1 mg/dl (8.4-10.2); Carbon Dioxide 31 mmol/L (22.0-30.0); Cholesterol 207 mg/dl (140-200); Globulin 2.4 g/dL (1.3-3.2); Glucose 91 mg/dl (74-100); HDL Cholesterol 52 mg/dl (40-60); Total Protein,Serum 6.6 g/dl (6.3-8.2); Triglycerides 165 mg/dl (30-150); VLDL Cholesterol 33 mg/dL (0-40)
[2024-07-29 09:20] LABS: Direct LDL Cholesterol 105.98 mg/dL (100-129)
[2024-07-29 09:25] LABS: 25-OH Vitamin D, Total 35.8 ng/mL (30-100)
[2024-07-29 09:39] LABS: Prostate Specific Ag Screen 1.1 ng/ml (0.0-4.0)
== END 2024-07-29 23:59 | disposition home or self-care (01) ==
LOC: LAB 07:06
PROVIDERS: PCP Family Medicine; Visit Provider Family Medicine
DX: E78.5 Hyperlipidemia, unspecified (principal); Z12.5 Encounter for screening for malignant neoplasm of prostate; E55.9 Vitamin D deficiency, unspecified
CPT/HCPCS: 36415; 80053; 80061; 82306; G0103

== ENCOUNTER 2025-01-27 06:50 | Outpatient (CLI) | payer MEDICARE, SELFPAY ==
[2025-01-27 07:55] LABS: Chloride 107 mmol/L (98-107); Potassium 4.3 mmoL/L (3.5-5.1); Sodium 142 mmol/L (136-145)
[2025-01-27 07:57] LABS: Alanine Aminotransferase 37 U/L (12-78); Anion Gap 11.3 mEq/L (5-15); Aspartate Amino Transferase 36 U/L (17-59); Blood Urea Nitrogen 10 mg/dl (9-20); Carbon Dioxide 28 mmol/L (22.0-30.0); Estimated Glomerular Filt Rate 73 ml/min (>60); GFR (African American) 88 ML/MIN (>60)
[2025-01-27 07:58] LABS: Alkaline Phosphatase 76 U/L (38-126); Bilirubin,Total 0.6 mg/dl (0.2-1.3); Calcium 8.8 mg/dl (8.4-10.2); Chol/HDL Ratio 4.1 (1-3.5); Cholesterol 175 mg/dl (140-200); Glucose 99 mg/dl (74-100); HDL Cholesterol 43 mg/dl (40-60); Total Protein,Serum 6.9 g/dl (6.3-8.2); Triglycerides 162 mg/dl (30-150); VLDL Cholesterol 32 mg/dL (0-40)
[2025-01-27 08:09] LABS: Direct LDL Cholesterol 97.67 mg/dL (100-129)
[2025-01-27 08:34] LABS: 25-OH Vitamin D, Total 40.6 ng/mL (30-100)
[2025-01-27 09:40] LABS: Albumin/Globulin Ratio 1.4 (1.1-1.8); Globulin 2.9 g/dL (1.3-3.2)
== END 2025-01-27 23:59 | disposition home or self-care (01) ==
LOC: LAB 06:52
PROVIDERS: PCP Family Medicine; Visit Provider Family Medicine
DX: E78.5 Hyperlipidemia, unspecified (principal); E55.9 Vitamin D deficiency, unspecified
CPT/HCPCS: 36415; 80053; 80061; 82306

== ENCOUNTER 2025-03-16 10:57 | Observation (INO) | payer MEDICARE, SELFPAY ==
[2025-03-16] VITALS (9 sets, daily range): BP systolic 117–151; BP diastolic 59–80; PULSE 53–63; RESP 16–22; TEMP 36.4–36.9; O2SAT 98–100; BMI 25.8; BMI 30.5
--- NOTE | 2025-03-16 11:20 | HMH.EDGENADL ---
Discharge Plan Disposition Chief Complaint: PAIN Prescriptions Prescriptions: No Action pregabalin 100 mg capsule 100 mg PO TID donepezil 10 mg tablet 10 mg PO DAILY albuterol sulfate 90 mcg/actuation HFA aerosol inhaler 1 inh INHALATION PRN fluoxetine 10 mg capsule 10 mg PO DAILY Arnuity Ellipta 100 mcg/actuation blister with device 1 inh inhalation DAILY cholecalciferol (vitamin D3) 125 mcg (5,000 unit) capsule 125 mcg PO DAILY multivitamin Tablet 1 tab PO DAILY ascorbic acid (vitamin C) 500 mg capsule See Rx Instructions PO .COMPLEX Rx Instructions: 500mg daily orally; psyllium husk [Daily Fiber] 0.52 gram capsule 0.52 g PO DAILY benzonatate 100 mg capsule 100 mg PO TIDP PRN (Reason: Cough) cetirizine [Zyrtec] 10 mg tablet 10 mg PO DAILY PRN ondansetron 4 mg Tablet,Disintegrating 4 mg PO Q8H PRN (Reason: Nausea) Qty: 12 0RF pravastatin 40 MG tablet 40 mg PO DAILY montelukast 10 MG tablet 10 mg PO DAILY niacin 500 mg capsule, extended release 500 mg PO BID Referrals Follow up/Referrals: Niko Watkins MD [Primary Care Provider, Medical] - See instructions Print Language Print Language: Lao Discharge ED Provider: Tamica Alexis General Adult HPI General Chief complaint: PAIN Stated complaint: abd pain Time Seen by Provider: 03/16/25 11:20 History of Present Illness HPI narrative: 74-year-old with past medical history significant for hypertension dementia hyperlipidemia presents to the emergency department with constipation. Last time patient had a bowel movement was yesterday today was trying to have a bowel movement and could not push it out it was very hard stool. Took 2 capfuls of MiraLAX without improvement of symptoms. Patient has alternating constipation and diarrhea. Last colonoscopy was 3 years ago and is next due is for his next colonoscopy in 2 years. Has history of polyps. Related Data Home Medications ?Medication ?Instructions ?Recorded ?Confirmed montelukast 10 mg tablet 10 mg PO DAILY allergies 08/08/18 02/19/25 pravastatin 40 mg tablet 40 mg PO DAILY Cholesterol 08/08/18 02/19/25 albuterol sulfate 90 mcg/actuation 1 inh inhalation PRN 06/13/22 02/19/25 aerosol inhaler fluoxetine 10 mg capsule 10 mg PO DAILY 06/13/22 02/19/25 fluticasone furoate 100 1 inh inhalation DAILY 06/13/22 02/19/25 mcg/actuation blister powder for inhalation (Arnuity Ellipta) niacin 500 mg capsule,extended 500 mg PO BID Supplement 06/13/22 02/19/25 release ascorbic acid (vitamin C) 500 mg See Rx Instructions PO .COMPLEX 02/15/23 02/19/25 capsule cholecalciferol (vitamin D3) 125 125 mcg PO DAILY 02/15/23 02/19/25 mcg (5,000 unit) capsule multivitamin 1 tab PO DAILY 02/15/23 02/19/25 psyllium husk 0.52 gram capsule 0.52 g PO DAILY 02/15/23 02/19/25 (Daily Fiber) donepezil 10 mg tablet 10 mg PO DAILY 02/20/24 02/19/25 pregabalin 100 mg capsule 100 mg PO TID 02/20/24 02/19/25 benzonatate 100 mg capsule 100 mg PO TIDP PRN Cough 02/19/25 cetirizine 10 mg tablet (Zyrtec) 10 mg PO DAILY PRN 02/19/25 02/19/25 Previous Rx's ?Medication ?Instructions ?Recorded ondansetron 4 mg disintegrating 4 mg PO Q8H PRN Nausea #12 tabs 08/24/22 tablet Allergies Allergy/AdvReac Type Severity Reaction Status Date / Time No Known Allergies Allergy Verified 02/19/25 10:58 [facility] Disclaimer: The information contained in this section may have been updated after the patient was seen, as this information can be updated by other users. Medical History RAMSES (obstructive sleep apnea) Severe RAMSES, excellent compliance on CPAP at 12 cm with symptomatic improvement. Large mask leak, elevated AHI, patient declines any changes. Surgical History No history of previous surgery Family History Other Cancer Heart attack Social History Smoking Status: Never smoker alcohol intake: never substance use type: denies use current occupational status: employed Travel in the last 8 weeks?: None household members: spouse housing: house marital status: caffeine: Yes Have you lived/traveled outside US in past 30 days?: No Contact w/someone who lives/traveled outside US past 30 days?: No Exposure to someone with infectious disease in past 14 days?: No Do you have a fever (greater than 100.4 F or 38 C)?: No Have you tested positive for COVID-19?: No Exposed to someone with COVID-19 in past 14 days?: No Do you have a sore throat?: No Do you have a cough?: No Do you have any weakness?: No Do you have any diarrhea?: No Are you experiencing any unusual bleeding?: No Do you have any muscle aches/pain?: No Do you have any abdominal pain?: Yes Are you experiencing loss of taste or smell?: No Other Medical History Have you received the Pneumonia Vaccine: No ROS Obtained: Yes All systems reviewed & no additional complaints except as documented Physical Exam General General appearance: alert and in no apparent distress Respiratory Respiratory exam: Present normal lung sounds bilaterally; Absent respiratory distress Cardiovascular Cardiovascular exam: Present regular rate and normal rhythm Abdominal Exam Abdominal exam: Present soft; Absent distention or tenderness Rectal Exam comment: Fecal impaction exam: Present normal inspection; Absent testicular tenderness or urethral discharge Neurological Exam Neurological exam: Present alert, oriented X3 and normal gait; Absent motor sensory deficit Psychiatric Psychiatric exam: Present agitated Skin Skin exam: Present warm and dry Medical Decision Making Medical Records Screening: Per USPSTF and CDC recommendations, given the prevalence of disease in our region, it is our hospital?s policy to screen for HIV and viral Hepatitis for all patients aged 18 and over and those with ongoing risk factors. [place] Inquiry Pt receiving controlled substance: No Vital Signs: 03/16/25 10:57 03/16/25 11:43 03/16/25 12:00 Temperature 97.6 F Temperature Source Oral Pulse Rate 54 L 53 L Pulse Rate [Right] 54 L Respiratory Rate 18 Blood Pressure 139/80 142/71 H Blood Pressure [Left Arm] 151/73 H Blood Pressure Mean [Left Arm] 99 Blood Pressure Source [Left Arm] Automatic Cuff 02 Sat by Pulse Oximetry 98 100 100 Oxygen Delivery Method Room Air Room Air 03/16/25 12:30 03/16/25 13:00 Temperature Temperature Source Pulse Rate 55 L 54 L Pulse Rate [Right] Respiratory Rate Blood Pressure 151/73 H 145/72 H Blood Pressure [Left Arm] Blood Pressure Mean [Left Arm] Blood Pressure Source [Left Arm] 02 Sat by Pulse Oximetry 100 98 Oxygen Delivery Method Lab Data Lab Results 03/16/25 11:19: WBC 4.9, RBC 4.48 L, Hgb 13.8 L, Hct 39.4 L, MCV 87.9, MCH 30.8, MCHC 35.0, RDW 12.9, Plt Count 216, MPV 10.1, Neut % (Auto) 65.7, Lymph % (Auto) 27.0, Barnes % (Auto) 5.3, Eos % (Auto) 1.4, Baso % (Auto) 0.4, Neut # (Auto) 3.2, Lymph # (Auto) 1.3, Barnes # (Auto) 0.3, Eos # (Auto) 0.1, Baso # (Auto) 0.0, Sodium 139, Potassium 3.6, Chloride 105, Carbon Dioxide 28, Anion Gap 9.6, BUN 9, Creatinine 0.90, Estimated GFR 82, Est GFR ( Amer) 100, Glucose 109 H, Calcium 9.3, Total Bilirubin 1.2, AST 42, ALT 37, Alkaline Phosphatase 77, Total Protein 7.2, Albumin 4.5, Globulin 2.7, Albumin/Globulin Ratio 1.7, TSH 1.47, Thyroxine (T4) 9.4 03/16/25 11:19 03/16/25 11:19 Orders (Tests/Meds): ED MEDICATIONS Generic Name Dose Route Start Last Admin Trade Name Freq PRN Reason Stop Dose Admin Acetaminophen 650 mg 03/16/25 14:27 Acetaminophen 325mg Tab PO 04/15/25 14:26 Q6HP PRN Fever or Mild Pain (1-3) Polyethylene Glycol 17 gm 03/16/25 14:00 03/16/25 14:16 Polyethylene Glycol 3350 17 Gm Packet PO 04/15/25 13:59 17 gm 5XDAY MG Administration Discontinued Medications Generic Name Dose Route Start Last Admin Trade Name Freq PRN Reason Stop Dose Admin Bisacodyl 10 mg 03/16/25 13:56 03/16/25 14:16 Bisacodyl 5mg Tablet PO 03/16/25 13:57 10 mg ONCE ONE Administration ORDERS Category Date Time 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 On initial evaluation patient is hemodynamically stable saturating appropriately on room air afebrile no acute distress.. Differential diagnosis includes but is not limited to constipation fecal impaction stercoral colitis hypothyroidism bowel obstruction obstructive mass urinary tract infection urinary retention. Based on these concerns, I ordered CBC CMP magnesium TSH T4 UA KUB. Fecal impaction manually disimpacted at bedside Patient received Fleet and soapsuds enema for treatment. Production of small bowel movement. Labs personally reviewed demonstrate stable anemia XR personally interpreted demonstrates rectal stool burden I discussed with family the option of performing a bowel cleanout at home. Patient lives at home with who uses a cane unable to assist patient with transfers and cleaning would be more comfortable with patient having bowel cleanout with assistance of hospital staff. I had an interactive discussion with hospitalist Paramjit for admission with recommendations to admit to observation for bowel cleanout and social work consult. Of note, social determinants of health include inability to perform ADLs independently. Critical Care Critical Care Time Critical Care Time: No
[2025-03-16 11:50] LABS: Basophils % 0.4 % (0.1-2.0); Eosinophils # 0.1 Kmm3 (0.0-0.4); Eosinophils % 1.4 % (0.1-12.0); Hematocrit 39.4 % (42.0-52.0); Hemoglobin 13.8 g/dL (14.1-18.0); Immature Granulocytes # 0.01 10^3uL; Immature Granulocytes % 0.2 %; Lymphocytes # 1.3 K/mm3 (0.7-4.5); Mean Corpuscular Hemoglobin 30.8 pg (27.0-31.2); Mean Corpuscular Volume 87.9 fl (80-94); Mean Platelet Volume 10.1 fl (7.4-10.4); Monocytes # 0.3 K/mm3 (0.1-1.0); Monocytes % 5.3 % (1.7-9.3); Neutrophils # 3.2 K/mm3 (1.8-7.8); Neutrophils % 65.7 % (37.0-80.0); Nucleated Red Blood Cells # 0 10^3/uL; Nucleated Red Blood Cells % 0 %; Platelet Count 216 K/mm3 (142-424); Red Blood Count 4.48 M/mm3 (4.60-6.20); Red Cell Distribution Width 12.9 % (11.5-17.5); Red Cell Distribution Width-SD 41.6 fL; White Blood Count 4.9 K/mm3 (4.8-10.8)
[2025-03-16 11:52] LABS: Albumin Level 4.5 g/dl (3.5-5.0); Chloride 105 mmol/L (98-107); Sodium 139 mmol/L (136-145)
[2025-03-16 11:53] LABS: Potassium 3.6 mmoL/L (3.5-5.1)
[2025-03-16 11:55] LABS: Alanine Aminotransferase 37 U/L (12-78); Albumin/Globulin Ratio 1.7 (1.1-1.8); Alkaline Phosphatase 77 U/L (38-126); Anion Gap 9.6 mEq/L (5-15); Aspartate Amino Transferase 42 U/L (17-59); Bilirubin,Total 1.2 mg/dl (0.2-1.3); Blood Urea Nitrogen 9 mg/dl (9-20); Carbon Dioxide 28 mmol/L (22.0-30.0); Estimated Glomerular Filt Rate 82 ml/min (>60); GFR (African American) 100 ML/MIN (>60); Globulin 2.7 g/dL (1.3-3.2); Total Protein,Serum 7.2 g/dl (6.3-8.2)
[2025-03-16 11:56] LABS: Calcium 9.3 mg/dl (8.4-10.2); Glucose 109 mg/dl (74-100)
[2025-03-16 12:13] LABS: T4 (Thyroxine) 9.4 ug/dl (5.53-11.0)
[2025-03-16 12:28] LABS: Thyroid Stimulating Hormone 1.47 uIU/mL (0.465-4.68)
--- NOTE | 2025-03-16 13:39 | PC.NURSE ---
soap suds and fleets enema given, pt tolerated well, gave call hester to patient
--- NOTE | 2025-03-16 13:45 | XR_ITS ---
PROCEDURE INFORMATION: Exam: XR Abdomen Exam date and time: 03/16/2025 2:00 PM Age: 74 years old Clinical indication: Abdominal pain; Additional info: Abdomninal pain TECHNIQUE: Imaging protocol: Radiologic exam of the abdomen. Views: Frontal supine view of the abdomen. 1 View. COMPARISON: DX CXR2V XR chest 2V 09/03/2018 3:38 PM FINDINGS: Lungs: Visualized lung bases are clear. Gastrointestinal tract: Mild gaseous distension involving portions of the large bowel likely secondary to mild ileus. No evidence of bowel obstruction. Bones/joints: Unremarkable. IMPRESSION: Mild colonic ileus.
--- NOTE | 2025-03-16 14:05 | PC.NURSE ---
pt going for xray at this time
[2025-03-16] MEDS: POLYETHYLENE GLYCOL 3350 17 GM PACKET PO ×3 (14:16→20:33)
[2025-03-16] MEDS: BISACODYL 5MG TABLET 10 MG PO (14:16)
--- NOTE | 2025-03-16 14:19 | PC.NURSE ---
Patient back from xray
--- NOTE | 2025-03-16 14:24 | PC.NURSE ---
Paged Dr Pathak (legal paraprofessional for Dr Watkins) for possible admission
--- NOTE | 2025-03-16 14:25 | PC.NURSE ---
Dr. Alexis is s/w Dr Pathak for admission for Dr Watkins
--- NOTE | 2025-03-16 14:28 | PC.NURSE ---
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
--- NOTE | 2025-03-16 14:50 | PC.NURSE ---
called report to [facility] on 2nd floor
--- NOTE | 2025-03-17 03:14 | PC.NURSE ---
PT AOx4, pleasant. Pt doing well this shift. VSS. Continually denies pain or any additional needs. Currently wearing home CPAP. Resting in bed with eyes open, respirations even and unlabored. Bed is low, locked, and call light is in reach.
[2025-03-17 04:00] VITALS: BP 129/61; PULSE 52; RESP 16; TEMP 36.4; O2SAT 98
[2025-03-17] MEDS: POLYETHYLENE GLYCOL 3350 17 GM PACKET PO (04:01)
[2025-03-17 07:03] LABS: Microscopic, Urine URINE MICROSCOPIC (MICROSCOPIC)
[2025-03-17 07:06] LABS: Appearance,Urine CLEAR (Clear); Bilirubin,Urine Negative (Negative); Blood, Urine Negative (Negative); Color,Urine YELLOW (Yellow); Glucose,Urine (UA) Negative (Negative); Ketones,Urine Negative (Negative); Leukocyte Esterase,Urine Negative (Negative); Nitrate,Urine Negative (Negative); Protein,Urine Negative (Negative)
--- NOTE | 2025-03-17 07:49 | HMH.PHAINT1 ---
Pharmacy Intervention Comments: home medication list verified using list from outpatient pharmacy
[2025-03-17 08:00] VITALS: BP 136/73; PULSE 56; RESP 18; TEMP 36.9; O2SAT 99
--- NOTE | 2025-03-17 08:35 | EXP.HPDC ---
General Admission date:: 03/16/25 Discharge date: 03/17/25 *Admission Date: 03/16/25 *Chief complaint: Constipation *History of present illness: Mr. Yap is a 74-year-old male patient of [facility] who presented to [facility] emergency room for evaluation after being constipated for about 1 day. Patient has had regular colonoscopies due to polyps and positive family history for colon cancer. His last colonoscopy was 09/05/[address] Pepe with noted removal of 2 polyps and noted hemorrhoids. With his visit in the emergency room he denied having any abdominal pain, nausea or vomiting, melena or hematochezia. He did note that he was belching more but did not feel distended. Patient also noted on admission that he had taken some MiraLAX at home. He also described altering alternating constipation and diarrhea. With evaluation in the emergency room white blood cell count was 4900 with a hemoglobin of 13.8 hematocrit of 39.4. BUN was 9 and creatinine of 0.9. He was again given MiraLAX which was ordered every 4 hours. Also was given dulcolax suppository 10 mg. Fecal patient was manually removed. He was noted to have a normal TSH. A KUB in the ER showed mild colonic ileus. The case was discussed with the family and due to the fact that he lives at home with his who has some disability and was unable to assist the patient with transfers and bowel cleansing, He was admitted to the hospital. This AM the. patient states he feels fine. He has received multiple doses of MiraLAX. Bowels have moved. He has been eating without difficulty and denies any nausea or vomiting. He states he is ready to go home. [facility] Disclaimer: The information contained in this section may have been updated after the patient was seen, as this information can be updated by other users. Medical History (Updated 03/17/25 @ 08:55 by Dariana Adams APRN) Overactive bladder Seasonal allergies Hyperlipidemia Mild cognitive disorder Colon polyps Psoriasis Depression RAMSES (obstructive sleep apnea) Surgical History No history of previous surgery Family History Other Cancer Heart attack Social History (Updated 03/16/25 @ 16:17 by Miryam Mancilla RN) Smoking Status: Never smoker alcohol intake: never substance use type: denies use current occupational status: employed Travel in the last 8 weeks?: None household members: spouse housing: house marital status: caffeine: Yes Have you lived/traveled outside US in past 30 days?: No Contact w/someone who lives/traveled outside US past 30 days?: No Exposure to someone with infectious disease in past 14 days?: No Do you have a fever (greater than 100.4 F or 38 C)?: No Have you tested positive for COVID-19?: No Exposed to someone with COVID-19 in past 14 days?: No Do you have a sore throat?: No Do you have a cough?: No Do you have any weakness?: No Do you have any diarrhea?: No Are you experiencing any unusual bleeding?: No Do you have any muscle aches/pain?: No Do you have any abdominal pain?: Yes Are you experiencing loss of taste or smell?: No Other Medical History Have you received the Flu Vaccine for this season: Yes Have you received the Pneumonia Vaccine: Yes Review of Systems Constitutional Constitutional: Denies body ache(s), Denies fever(s), Denies frequent falls and Denies headache(s) Eyes Eyes: Denies change in vision ENT Ears, Nose, Mouth, and Throat: Denies dizziness, Denies otalgia, Denies headache(s), Denies sore throat and Denies vertigo *Cardiovascular Cardiovascular: Denies chest pain, Denies dyspnea, Denies leg edema and Denies syncope *Respiratory Respiratory: Denies chest congestion, Denies cough, Denies dyspnea, Denies hemoptysis and Denies wheezing *Gastrointestinal Gastrointestinal: Denies abdominal pain, Reports belching, Denies bloating, Reports change in bowel habits, Reports change in stool character, Reports constipation, Denies cramping, Denies diarrhea, Denies dyspepsia, Denies excessive flatus, Denies heartburn, Denies melena, Denies nausea and Denies vomiting *Genitourinary Genitourinary: Denies difficulty urinating *Musculoskeletal Musculoskeletal: Denies abnormal gait and Denies arthralgias *Neurologic Neurologic: Denies abnormal gait, Denies abnormal speech, Denies confusion, Denies dizziness, Denies frequent falls, Denies headache(s), Denies syncope and Denies vertigo Psychiatric Psychiatric: Denies confusion Allergic/Immunologic Allergic/Immunologic: Denies wheezing Exam Data for Last 24 hours Vital signs and Labs for Last 24 Hours: Temp Pulse Resp BP Pulse Ox O2 Del Method 97.5 F L 52 L 16 129/61 98 Room Air 03/17/25 04:00 03/17/25 04:00 03/17/25 04:00 03/17/25 04:00 03/17/25 04:00 03/17/25 06:12 Laboratory Results - last 24 hr 03/16/25 11:19: WBC 4.9, RBC 4.48 L, Hgb 13.8 L, Hct 39.4 L, MCV 87.9, MCH 30.8, MCHC 35.0, RDW 12.9, Plt Count 216, MPV 10.1, Neut % (Auto) 65.7, Lymph % (Auto) 27.0, Parker % (Auto) 5.3, Eos % (Auto) 1.4, Baso % (Auto) 0.4, Neut # (Auto) 3.2, Lymph # (Auto) 1.3, Parker # (Auto) 0.3, Eos # (Auto) 0.1, Baso # (Auto) 0.0, Sodium 139, Potassium 3.6, Chloride 105, Carbon Dioxide 28, Anion Gap 9.6, BUN 9, Creatinine 0.90, Estimated GFR 82, Est GFR ( Amer) 100, Glucose 109 H, Calcium 9.3, Total Bilirubin 1.2, AST 42, ALT 37, Alkaline Phosphatase 77, Total Protein 7.2, Albumin 4.5, Globulin 2.7, Albumin/Globulin Ratio 1.7, TSH 1.47, Thyroxine (T4) 9.4 03/17/25 06:42: Urine Color Yellow, Urine Appearance Clear, Urine pH 6.0, Ur Specific [place] 1.010, Urine Protein Negative, Urine Glucose (UA) Negative, Urine Ketones Negative, Urine Blood Negative, Urine Nitrate Negative, Urine Bilirubin Negative, Urine Urobilinogen 1.0, Ur Leukocyte Esterase Negative I & O for Last 24 hours: Intake & Output 03/14/25 03/15/25 03/16/25 03/17/25 11:59 11:59 11:59 11:59 Intake Total 480 / 480 Output Total 0 / 0 Balance 480 / 480 Weight 165 lb 241 lb 11.2 oz Constitutional Constitutional: no acute distress Comments: Sitting up in the bed and has completed his breakfast. He has already been to the shower this a.m. and function fine *Routine HEENT Exam Head: Present normocephalic and atraumatic Eye: Present PERRL; Absent conjunctival icterus, scleral injection or conjunctivae pink ENT: Present mucous membranes moist and oropharynx clear *Routine Neck Exam Neck: Present supple; Absent carotid bruit, lymphadenopathy or thyromegaly *Routine Respiratory Exam Respiratory: Present CTA bilaterally (Anteriorly and posteriorly) *Routine Cardiovascular Exam Cardiovascular: Present RRR *Routine Abdominal Exam Abdominal: Present soft, normoactive bowel sounds and obese; Absent tenderness *Routine Rectal Exam Rectal:: deferred *Routine Genitalia Exam Genitalia:: deferred *Routine Extremities Exam Extremities: Present full ROM and pulses intact; Absent edema or calf tenderness *Routine Neurological Exam Neurological: Present alert and oriented X3 Meds Home Medications and Allergies Home Medications ?Medication ?Instructions ?Recorded ?Confirmed ?Type pravastatin 40 mg tablet 40 mg PO HS 08/08/18 03/17/25 History albuterol sulfate 90 mcg/actuation 1 inh inhalation DAILY 06/13/22 03/16/25 History aerosol inhaler fluticasone furoate 100 1 inh inhalation DAILY 06/13/22 03/16/25 History mcg/actuation blister powder for inhalation (Arnuity Ellipta) niacin 500 mg capsule,extended 500 mg PO BID Supplement 06/13/22 03/16/25 History release ascorbic acid (vitamin C) 500 mg 500 mg PO DAILY 02/15/23 03/16/25 History capsule cholecalciferol (vitamin D3) 125 125 mcg PO DAILY 02/15/23 03/16/25 History mcg (5,000 unit) capsule multivitamin 1 tab PO DAILY 02/15/23 03/16/25 History donepezil 10 mg tablet 10 mg PO HS 02/20/24 03/17/25 History pregabalin 100 mg capsule 100 mg PO TID 02/20/24 03/16/25 History cetirizine 10 mg tablet (Zyrtec) 10 mg PO DAILY PRN allergies 02/19/25 03/16/25 History fluoxetine 20 mg capsule 20 mg PO DAILY 03/17/25 03/17/25 History montelukast 10 mg tablet 10 mg PO HS 03/17/25 03/17/25 History polyethylene glycol 3350 17 gram 17 g PO DAILY #1 ea 03/17/25 Rx oral powder packet (HealthyLax) psyllium husk 3.4 gram/5.8 gram 3.4 g PO DAILY #1 g 03/17/25 Rx oral powder (Metamucil [facility] Fiber) New Prescriptions to Start Prescriptions: polyethylene glycol 3350 [HealthyLax] [place] psyllium husk [Metamucil [facility] Fiber] [place] Allergies Allergy/AdvReac Type Severity Reaction Status Date / Time No Known Allergies Allergy Verified 02/19/25 10:58 Hospital Course Hospital Course Hospital Course: After admission patient did receive several doses of MiraLAX in addition to his suppository. His bowels moved a couple of times and a lot last was a large amount. He states he does not feel bloated or full anymore. He was able to eat his dinner and breakfast this morning without any difficulty. He states he is ready to go home. Patient was discharged and will take MiraLAX and Metamucil at home. He was again was instructed on good water intake with FU at [facility]. Results Data Completed and Pending Completed studies during hospitalization [Text1]: 03/16/2025 KUB FINDINGS: Lungs: Visualized lung bases are clear. Gastrointestinal tract: Mild gaseous distension involving portions of the large bowel likely secondary to mild ileus. No evidence of bowel obstruction. Bones/joints: Unremarkable. IMPRESSION: Mild colonic ileus. Labs on day of discharge: Labs from last 24 hours 03/17/25 03/16/25 06:42 11:19 WBC 4.9 RBC 4.48 L Hgb 13.8 L Hct 39.4 L MCV 87.9 MCH 30.8 MCHC 35.0 RDW 12.9 Plt Count 216 MPV 10.1 Neut % (Auto) 65.7 Lymph % (Auto) 27.0 Parker % (Auto) 5.3 Eos % (Auto) 1.4 Baso % (Auto) 0.4 Neut # (Auto) 3.2 Lymph # (Auto) 1.3 Parker # (Auto) 0.3 Eos # (Auto) 0.1 Baso # (Auto) 0.0 Sodium 139 Potassium 3.6 Chloride 105 Carbon Dioxide 28 Anion Gap 9.6 BUN 9 Creatinine 0.90 Estimated GFR 82 Est GFR ( Amer) 100 Glucose 109 H Calcium 9.3 Total Bilirubin 1.2 AST 42 ALT 37 Alkaline Phosphatase 77 Total Protein 7.2 Albumin 4.5 Globulin 2.7 Albumin/Globulin Ratio 1.7 TSH 1.47 Thyroxine (T4) 9.4 Urine Color Yellow Urine Appearance Clear Urine pH 6.0 Ur Specific [place] 1.010 Urine Protein Negative Urine Glucose (UA) Negative Urine Ketones Negative Urine Blood Negative Urine Nitrate Negative Urine Bilirubin Negative Urine Urobilinogen 1.0 Ur Leukocyte Esterase Negative DS: Diagnosis Discharge Diagnosis (1) Constipation: Status: Acute Code(s): K59.00 - Constipation, unspecified Discharge Plan Disposition Patient Disposition: Home, Self-Care Condition: Fair Follow up Plan Follow up with: Niko Watkins MD [Primary Care Provider, Medical] - 03/27/25 1:45 pm Prescriptions/Medication Reconciliation: New Metamucil [facility] Fiber 3.4 gram/5.8 gram powder 3.4 g PO DAILY Qty: 1 0RF polyethylene glycol 3350 [HealthyLax] 17 gram powder in packet 17 g PO DAILY Qty: 1 0RF Continued pregabalin 100 mg capsule 100 mg PO TID donepezil 10 mg tablet 10 mg PO HS albuterol sulfate 90 mcg/actuation HFA aerosol inhaler 1 inh INHALATION DAILY Arnuity Ellipta 100 mcg/actuation blister with device 1 inh inhalation DAILY cholecalciferol (vitamin D3) 125 mcg (5,000 unit) capsule 125 mcg PO DAILY multivitamin Tablet 1 tab PO DAILY ascorbic acid (vitamin C) 500 mg capsule 500 mg PO DAILY Rx Instructions: 500mg daily orally; cetirizine [Zyrtec] 10 mg tablet 10 mg PO DAILY PRN (Reason: allergies) montelukast 10 mg tablet 10 mg PO HS fluoxetine 20 mg capsule 20 mg PO DAILY pravastatin 40 MG tablet 40 mg PO HS niacin 500 mg capsule, extended release 500 mg PO BID Discontinued psyllium husk [Daily Fiber] 0.52 gram capsule 0.52 g PO DAILY Problem Reconciliation Problems Reviewed?: Yes Patient Discharge Instructions ACTIVITY: Continue current activity DIET: continue same diet Additional Instructions: Miralax dosing changed to once daily instead of 5 times daily. Spoke to patient's about change. Patient Instructions: DI for Constipation Print Language: Slovak Providers Primary Care Provider: Niko Watkins Admit Provider: Param Pathak Attending Provider: Valentin Barr
--- NOTE | 2025-03-17 09:08 | SW/DCPLANNER ---
I received a consult on this patient regarding ability to care for himself at home. Per nursing staff patient ambulates independently and resides at home w/ . No further needs at this time. Per MD patient will discharge home today.
--- NOTE | 2025-03-18 10:03 | SW/DCPLANNER ---
Spoke with patient on the phone. Patient stated that he is doing very good. Patient stated that he has not picked up his new medicine just yet from [facility] but will check in just a few with them. Patient stated that he was not given any follow up appointments. Patient stated that he has no concerns or questions at this time. Douglas Maddox
[2025-03-19 12:33] LABS: Bacteria,Urine Trace /lpf
== END 2025-03-17 10:43 | disposition home or self-care (01) ==
LOC: ER 11:05 → 2ND 14:39
PROVIDERS: Admitting Provider Internal Medicine Adolescent Medicine; Emergency Provider Student in an Organized Health Care Education/Training Program; PCP Family Medicine; Visit Provider Family Medicine
DX: K59.00 Constipation, unspecified (principal); N32.81 Overactive bladder; I10 Essential (primary) hypertension; E78.5 Hyperlipidemia, unspecified; G47.33 Obstructive sleep apnea (adult) (pediatric); F03.90 Unspecified dementia, unspecified severity, without behavioral disturbance, psychotic disturbance, mood disturbance, and anxiety; F32.A Depression, unspecified; Z86.0100 Personal history of colon polyps, unspecified; Z86.16 Personal history of COVID-19; Z79.899 Other long term (current) drug therapy; Z80.0 Family history of malignant neoplasm of digestive organs; Z79.51 Long term (current) use of inhaled steroids
CPT/HCPCS: 51798; 74018; 80053; 81001; 84436; 84443; 85025; G0378

== ENCOUNTER 2025-04-15 13:31 | Outpatient (CLI) | payer MEDICARE, SELFPAY ==
--- OUTSIDE RECORDS SUMMARY | 2024-08-01 05:30 | XMS_ITS ---
Author Organization [facility] Address [address] [place] [id number] Care Team Providers Care Chemist Assistant Name Role Phone [place] Valentin Primary Care Provider [phone] Arabella Watkins [phone] Allergies Allergen (clinical drug ingredient) Drug/Non Drug [...] older) IM Intramuscular 08/01/2024 Administered Vital Signs Blood pressure systolic 122 mm Hg 08/01/20 24 Blood pressure diastolic 70 mm Hg 024 Heart Rate 59 /min 08/01/2024 Height 75 in 08/01/2024 Weight 237 lbs 08/01/2024 BMI 29.62 kg/m2 08/01/2024 Encounters Encounter Location Date Provider Diagnosis [facility] [address] [place], [place] [id number] 08/01/2024 Arabella Watkins Generalized anxiety disorder F41.1 [...] [address], [address], [place], [id number], Progress Notes * FIDELINA BARCLAYDOB:[birth year] (74 yo M)Acc No.[id number]:08/01/2024 Patient: FIDELINA CRUZ Provider: Arabella Watkins M.D. :1950 A ge:74 Y S ex:Male Date:08/01/2024 Address:[facility] [place] , [id number] Pcp:Valentin Barr Subjective: * Chief Complaints: * [...] 09/28/17. * Family History: F ather: , [place], diabetes. M other: , cancer. 1 brother(s) [...] *Please review and pick correct strength-formulation from [employer] options. If intended option is not shown, [...] Physical Examination: L ABS: See labs r eviewed with patient, Lipids not at goal. Assessment: * Assessment: 1. G eneralized anxiety disorder - F41.1 (Primary) 2 . V itamin D deficiency - E55.9 3 . D yslipidemia - E78.5 4 . O SA (obstructive sleep apnea) - G47.33 5 . S easonal allergies - J30.2 6 . E ncounter for immunization - Z23 7 . B [place] 29.0-29.9,adult - Z68.29 Plan: * Treatment: 2. V itamin D deficiency Continue Vitamin D3 Capsule, 125 MCG (5000 UT), 1 tab(s), orally, once a day. 3. D yslipidemia Refill Pravastatin Sodium Tablet, 40 MG, 1 tab(s), orally, once a day (at bedtime), 90, Refills 1.? Notes: Reinforced diet and weight loss 4. B [place] 29.0-29.9,adult Notes: Cautioned on weight. Reinforced diet and exercise * Immunizations: Fluzone High Dose (65yr and older) : 0.5 mL (Route: Intramuscular) given by Haydee Aguirre on Right Deltoid (Encounter for immunization) * Follow Up: 6 Months * Images: Billing Information: * Visit Code: 76796 Office Visit, Est Pt., Level 4. * Procedure Codes: * Electronic signature of Arabella Watkins MD on 04/15/2025 at 01:35 PM EDT Sign off status: Pending * Provider: Arabella Watkins M.D. Date: Generated for Ines jeff/Cheko/Goyoitting on: 0 04/15/2025 01:35 PM EDT History and Physical Notes * HPI (History of Present Illness) Category Sub-Category Detail Notes Category Not es [facility]. Pt [...]
--- OUTSIDE RECORDS SUMMARY | 2025-01-30 05:45 | XMS_ITS ---
Author Organization [facility] Address [address] [facility] [address] [place] [id number] Care Team Providers Care Environmental Studies Professor Name Role Phone Valentin Barr Primary Care Provider [phone] Arabella Watkins [phone] Allergies Allergen (clinical drug ingredient) Drug/Non Drug [...] Problem Status W/U Status Risk Notes Problem BMI 31.0-31.9,ad ult (Z68.31) Active confirmed Vital Signs Blood pressure systolic 130 mm Hg 01/31/20 25 Blood pressure diastolic 78 mm Hg 025 Heart Rate 67 /min 01/30/2025 Height 75 in 01/30/2025 Weight 251.2 lbs 01/30/2025 BMI 31.39 kg/m2 01/30/2025 Encounters Encounter Location Date Provider Diagnosis [facility] [address] [facility] [address] [place], [place] [address] [place] [id number] 01/30/2025 Arabella Watkins Adult general medica l [...] Trinidad et, 07/31/2025 09:45:00 AM, [address], [place], [place], [id number], Progress Notes * FIDELINA BARCLAYB:[birth year] (74 yo M)Acc No.[id number]:01/30/2025 Annual Wellness Visit Patient: FIDELINA CRUZ Provider: Arabella Watkins M.D. :1950 A ge:74 Y S ex:Male Date:01/30/2025 Address:[facility] [address] , [facility], [id number] Pcp:Valentin Barr Subjective: * Chief Complaints: * [...] 09/28/17. * Family History: F ather: , [place], diabetes. M other: , cancer. 1 brother(s) [...] easonal allergies - J30.2 7 . B [place] 31.0-31.9,adult - Z68.31 ? Plan: * Treatment: [...] * Images: Billing Information: * Visit Code: 89967 Office Visit, Est Pt., Level 3. Modifiers: [...] of Arabella Watkins MD on 04/15/2025 at 01:34 PM EDT Sign off status: Pending * Provider: Arabella Watkins M.D. Date: 0 01/30/2025 Generated for Ines jeff/Cheko/Goyoitting on: 0 04/15/2025 01:34 PM EDT History and Physical Notes * HPI (History of Present Illness) Category Sub-Category Detail Notes Category Not es ENT/respiratory sore throat Fever HPI Patient is here today for a [facility] 6 month check up and a Medicare [...]
--- OUTSIDE RECORDS SUMMARY | 2025-03-27 09:45 | XMS_ITS ---
Author Organization [facility] Address [address] [place] [id number] Care Team Providers Care Supervisor Dried Yeast Name Role Phone Valentin Barr Primary Care Provider Arabella Watkins [phone] Allergies Allergen (clinical drug ingredient) Drug/Non Drug Allergy documented on EMR Reaction Allergy Type Onset Date Status citalopram CeleXA nausea Drug Allergy Active REASON FOR VISIT [facility] d/c f/u, Colonoscopy 08/2021 recommended f/u 3-5 [...] Problem Body mass index 30+ - obesity (567293260) BMI 30.0-30.9,a dult (Z68.30) Active confirmed Vital Signs Blood pressure systolic 126 mm Hg 03/27/20 25 Blood pressure diastolic 60 mm Hg 025 Heart Rate 57 /min 03/27/2025 Height 75 in 03/27/2025 Weight 242.6 lbs 03/27/2025 BMI 30.32 kg/m2 03/27/2025 Encounters Encounter Location Date Provider Diagnosis [facility] [address] [facility] 36 [facility] [address] [place], [place] [id number] 03/27/2025 Arabella Watkins Constipation K59.00 and BMI [...] Follow Up: as scheduled, Lucinda son: Provider Name:Arabella Ferreira, 07/31/2025 09:45:00 AM, [address] [facility] [address] [facility], [address], [place] [id number], Progress Notes * SHAHZAD BARCLAY:[birth year] (74 yo M)Acc No.[id number]:03/27/2025 Patient: FIDELINA CRUZ Provider: Arabella Watkins M.D. :1950 A ge:74 Y S ex:Male Date:03/27/2025 Address:[address], [id number] Pcp:Valentin Barr Subjective: * Chief Complaints: * 1 . [facility] d/c f/u. 2. Colonoscopy 08/2021 recommended f/u 3-5 years. * HPI: H PI: Patient is here today for a Transition of Care Visit. Discharge from the following Facility: [facility] following admission for Constipation ,Discharge date: 03/17/2025 ,Date of phone contact following discharge: 03/18/2025. . G astroenterology: He was admitted overnight last week with constipation and mild colonic ileus. He responded with conservative measures using Duca locks and MiraLAX. He has been using MiraLAX [...] 09/28/17. * Family History: F ather: , [place], diabetes. M other: , cancer. 1 brother(s) [...] *Please review and pick correct strength-formulation from LivingSocialan options. If intended option is not shown, discontinue and re-order from Quick Search*, Not-Taking Medrol 4 MG Tablet Therapy Pack as directed , Medication List reviewed and reconciled with the patient * Allergies: C eleXA: nausea - Side Effects. Objective: * Vitals: W t: 242.6, Temp: 98.3, BP: 126/60, HR: 57, Nurse: [facility], Ht: 75, BMI:30.32. * Examination: G eneral Examination: General Appearance: N AD. A bdomen: s oft, not distended, nontender, bowel sounds present, no organomegaly or masses. Assessment: * Assessment: 1. C onstipation - K59.00 (Primary) 2 . B [place] 30.0-30.9,adult - Z68.30 ? Plan: * Treatment: [...] * Images: Billing Information: * Visit Code: 74730 Office Visit, Est Pt., Level 3. * Procedure Codes: 50270 TRANS CARE MGMT 14 DAY DISCH. 1111F DSCHR MED/CURENT MED MERGE. G2211 Complex e/m visit add on. 1036F TOBACCO NON-USER. G8783 BP SCR PRFRM RCMDD DEFIND SCR INTVL. G8752 MOST RECENT SYSTOLIC BP < 140MM HG. G8754 MOST RECENT DIASTOLIC BP < 90MM HG. * Electronic signature of Arabella Watkins MD on 04/15/2025 at 01:33 PM EDT Sign off status: Pending * Provider: Arabella Watkins M.D. Date: 0 03/27/2025 Generated for Printi randee/Cheko/eTransmitting on: 0 04/15/2025 01:33 PM EDT History and Physical Notes * HPI (History of Present Illness) Category Sub-Category Detail Notes Category Not es Gastroenterology He was admi tted overnight last week with constipation and mild colonic ileus. He responded with conservative measures using Duca locks and MiraLAX. He has been using MiraLAX at home since discharge and having regular normal stools. Denies abdominal pain, nausea, melena, or hematochezia. HPI Patient is here today for a Transition of Care Visit. Discharge from the following Facility: [facility] following admission for Constipation ,Discharge date: 03/17/2025 ,Date of phone contact following discharge: 03/18/2025. Examination Category Sub-Category Detail Notes Category Not es General Examination Abdomen: soft, not di stended, nontender, bowel sounds present, no organomegaly or masses General Appearance: NAD
--- OUTSIDE RECORDS SUMMARY | 2025-04-02 14:10 | XMS_ITS | Encounter Summary ---
Author Organization [facility] Address [address] [place] [address] Care Team Providers Care Spooler Name Role Phone Niko Livingston Primary Care Provider Sandra Comer MD Unavailable [phone] Reason for Referral * Imaging (Routine) - Authorized Specialty Diagnoses / Procedures Referred By Contac t Referred To Contact Diagnoses MCI (mild cognitive impairment) Procedures MR Head wo IV Contrast Latricia Ryan PA [address] [facility] [address] [place] [address] Phone: tel: fax: [facility] () [address] [place] [address] Phone: tel: fax: Referral ID Status Reason Start Date Expiration Date V isits Requested Visits Authorized [id number] Authorized 04/02/2025 10/02/2026 1 1 Encounter Details Date Type Department Care Team (Late st Contact Info) Description 04/02/2025 2:10 PM EDT Office [facility] [address], [address] [place] [address] Latricia Ryan PA [address] [place] [address] Tremor (Primary Dx); MCI (mild cognitive impairment) Social History Tobacco Use Types Packs/Day Years Used Date Smoking Tobacco: Never Passive Smoke Exposure: Never Smokeless Tobacco: Never Tobacco Cessation:Counseling Given: Not Answered Alcohol Use Standard Drinks/Week Comments Never 1 (1 standard drink = 0.6 oz pur e alcohol) Sex and Gender Information Value Date Recorded Sex Assigned at Not on file Legal Sex Male 7:31 PM EDT Gender Identity Not on file Sexual Orientation Not on file documented as of this encounter Last Filed Vital Signs Vital Sign Reading Time Taken Comments Blood Pressure 140/70 04/02/2025 2:00 PM EDT Pulse 54 04/02/2025 2:00 PM EDT Temperature - - Respiratory Rate - - Oxygen Saturation 96% 04/02/2025 2:00 PM EDT Inhaled Oxygen Concentration - - Weight 110 kg (242 lb 11.6 oz) 04/02/2025 2:00 P M EDT Height 190.5 cm (6' 3 ) 04/02/2025 2:00 PM EDT Body Mass Index 30.34 04/02/2025 2:00 PM EDT documented in this encounter Plan of Treatment Upcoming Encounters Date Type Department Care Team (Late st Contact Info) Description 05/29/2025 12:00 PM EDT Consult [facility] [address] [place] [id number] Cb Hatch MD [address] [place] [address] 10/02/2025 2:10 PM EST [facility] [address] [place] [address] Latricia Ryan PA [address] [place] [address] Scheduled Orders Name Type Priority Associated Diagnoses Orde r Schedule MR Head wo IV Contrast Imaging Routine MCI (mild cognitive impairment) Expected: 04/02/2025 (Approximate), Expires: 10/04/2026 documented as of this encounter Visit Diagnoses Diagnosis Tremor- Primary Abnormal involuntary movements MCI (mild cognitive impairment) Mild cognitive impairment, so stated documented in this encounter Additional Health Concerns Assessment Noted Time A fall risk assessment has been complete d for the patient 04/02/2025 2:08 PM EDT A Body Mass Index follow-up plan has been documented for the patient 04/02/2025 2:56 PM EDT documented as of this encounter Care Teams Spooler Relationship Specialty Start Date End Date Niko Livingston PCP - General 02/11/22 Sandra Mason MD [address] [facility] [address] [place] [address] Consulting Physician Neurology 02/11/22 documented as of this encounter
--- NOTE | 2025-04-15 13:34 | MR_ITS ---
FINAL REPORT CLINICAL HISTORY: [facility] MILD COGNITIVE IMPAIRMENT. MEMORY LOSS. COMPARISON: None FINDINGS: Multi planar MR imaging was obtained through the brain without contrast. The midline structures appear intact. There is extensive abnormal signal throughout the deep white matter bilaterally involving both the periventricular and subcortical white matter. On diffusion-weighted images there is no evidence of restricted diffusion. Signal abnormality in the posterior horn of the left lateral ventricle measures 1.5 cm and is well seen on image 20 of series 5 and 6. This may represent choroid plexus cyst. Mild changes of chronic bilateral maxillary sinusitis are noted. IMPRESSION: Extensive changes of chronic microvascular ischemia without evidence of acute ischemia. Chronic bilateral maxillary sinusitis. Question of choroid plexus cyst. Recommend evaluation without and with contrast to better characterize. Reviewed, Interpreted and Dictated by Dylon Montenegro MD Transcribed by Judith Carpenter Authenticated and [facility]
--- OUTSIDE RECORDS SUMMARY | 2025-04-15 13:34 | XMS_ITS | Encounter Summary ---
Author Organization [facility] Address [address] [place] [address] Care Team Providers Care Posting Specialist Name Role Phone Niko Livingston Primary Care Provider Sandra Comer MD Unavailable Reason for Visit * Reason Comments Med Refill Encounter Details Date Type Department Care Team (Late st Contact Info) Description 09/15/2023 Refill [place] [facility] [address], [address] [place] [address] Latricia Ryan PA [address] [place] [address] Social History Tobacco Use Types Packs/Day Years Used Date Smoking Tobacco: Never Smokeless Tobacco: Never Alcohol Use Standard Drinks/Week Comments Never 1 (1 standard drink = 0.6 oz pur e alcohol) Sex and Gender Information Value Date Recorded Sex Assigned at Not on file Legal Sex Male 7:31 PM EDT Gender Identity Not on file Sexual Orientation Not on file documented as of this encounter Miscellaneous Notes * Telephone Encounter - Latricia Ryan PA - 09/18/2023 9:03 AM EST Jarocho briseno- sent documented in this encounter Plan of Treatment Upcoming Encounters Date Type Department Care Team (Late st Contact Info) Description 05/29/2025 12:00 PM EDT Consult [facility] [address] [place] [address] Cb Hatch MD [address] [place] [address] 10/02/2025 2:10 PM EST Office Visit [facility] [address], [address] [place] [address] Latricia Ryan PA [address] [facility] [place] [address] documented as of this encounter Visit Diagnoses Not on filedocumented in this encounter Additional Health Concerns Assessment Noted Time A fall risk assessment has been complete d for the patient 06/29/2023 2:17 PM EDT A Body Mass Index follow-up plan has been documented for the patient 06/29/2023 2:43 PM EDT documented as of this encounter Care Teams Posting Specialist Relationship Specialty Start Date End Date Niko Livingston PCP - General 02/11/22 Sandra Mason MD [address] [facility] [address] [place] [address] Consulting Physician Neurology 02/11/22 documented as of this encounter
--- OUTSIDE RECORDS SUMMARY | 2025-04-15 13:34 | XMS_ITS | Encounter Summary ---
Author Organization Healthcare Address [address] [place] [address] Care Team Providers Care Barbering Teacher Name Role Phone Aaliyahmaryse Niko Primary Care Provider Sandra Comer MD Unavailable Encounter Details Date Type Department Care Team (Late st Contact Info) Description 03/17/2025 Telephone [place] [facility] [address], [address] [place] [address] Latricia Ryan PA [address] [place] [address] Social History Tobacco Use Types [...] Telephone Encounter - Latricia Ryan PA - 03/18/2025 11:17 AM EDT Yes, thank you * Telephone Encounter - Latricia Ryan PA - 03/17/2025 3:11 PM EDT Thank you. Can we get him scheduled with me in the next few weeks please? * Telephone Encounter - Latricia Ryan PA - 03/17/2025 1:30 PM EDT If there is a sudden change this can be due to constipation. They need to check for UTI. IF all is negative and this is a gradual decline then we can discuss starting a medication for mood after he is out of the hospital. At the last visit I had placed a referral for the memory clinic. * Telephone Encounter - Harriett Katz - 03/17/2025 9:55 AM EDT Patient Phone Message Reason for Call: Patient daughter calling with concerns on pts agitation level, pt had to be admitted to hosp for constipation but behavior was so bad he had to be restrained please advise Best contact number and optimal time of day to reach caller: [phone] Note: Please do not reply to this message. Follow-up communication and further actions as a result of this message need to be communicated with the patient directly, if the patient is not active onMyChart. If the patient is active on MyChart, they will receive notification of the communication/outcome via MyChart. documented in this encounter Plan of Treatment Upcoming Encounters Date Type Department Care Team (Late st Contact Info) Description 05/29/2025 12:00 PM EDT [facility] [place] - Memory [address] [place] [address] Cb Hatch MD [address] [place] [phone] 10/02/2025 2:10 PM EST Office Visit [place] [facility] [address] [place] [address] Latricia Ryan, PA [address] [address] documented as of this encounter Visit Diagnoses Not on filedocumented in this encounter Additional Health Concerns Assessment Noted Time A fall risk assessment has been complete d for the patient 10/02/2024 2:41 PM EST A Body Mass Index follow-up plan has been documented for the patient 10/02/2024 3:34 PM EST documented as of this encounter Care Teams Barbering Teacher Relationship Specialty Start Date End Date Niko Livingston PCP - General 02/11/22 Sandra [place] MD [address] [address] Consulting Physician Neurology 02/11/22 documented as of this encounter
--- OUTSIDE RECORDS SUMMARY | 2025-04-15 13:34 | XMS_ITS | Encounter Summary ---
Author Organization Healthcare Address [address] [place] [address] Care Team Providers Care Band Saw Operator Name Role Phone Yara Niko Primary Care Provider Sandra Comer MD Unavailable Encounter Details Date Type Department Care Team (Late st Contact Info) Description 04/10/2025 Telephone [place] [facility] [address], [address] [place] [address] Latricia Ryan PA [address] [place] [address] Social History Tobacco Use Types Packs/Day Years Used Date Smoking Tobacco: Never Passive Smoke Exposure: Never Smokeless Tobacco: Never Alcohol Use Standard [...] Telephone Encounter - Latricia Ryan PA - 04/10/2025 1:51 PM EDT Can we please send this order? thanks * Telephone Encounter - Harriett Katz - 04/10/2025 1:23 PM EDT Patient Phone Message Reason for Call: Patient calling to request MRI order be sent to [facility] fax to [phone] Best contact number and optimal time of day to reach caller: [phone] Note: Please do not reply to this message. Follow-up communication and further actions as a result of this message need to be communicated with the patient directly, if the patient is not active onMyChart. If the patient is active on MyChart, they will receive notification of the communication/outcome via [employer]. documented in this encounter Plan of Treatment Upcoming Encounters Date Type Department Care Team (Late st Contact Info) Description 05/29/2025 12:00 PM EDT [facility] [place] - Memory [address] [place] [id number] Cb Hatch MD [address] [place] [address] 10/02/2025 2:10 PM EST Office Visit [place] [facility] [address], [address] [place] [address] Latricia Ryan, TAMEKA [address] [place] [address] documented as of this encounter Visit Diagnoses Not on filedocumented in this encounter Additional Health Concerns Assessment Noted Time A fall risk assessment has been complete d for the patient 04/02/2025 2:08 PM EDT A Body Mass Index follow-up plan has been documented for the patient 04/02/2025 2:56 PM EDT documented as of this encounter Care Teams Band Saw Operator Relationship Specialty Start Date End Date Niko Living[place] PCP - General 02/11/22 Sandra [place] MD [address] [place] [address] Consulting Physician Neurology 02/11/22 documented as of this encounter
--- OUTSIDE RECORDS SUMMARY | 2025-04-15 13:34 | XMS_ITS | Encounter Summary ---
Author Organization Healthcare Address [address] [place] [address] Care Team Providers Care Technical Analyst Name Role Phone Niko Livingston Primary Care Provider Sandra Comer MD Unavailable [phone] Reason for Visit * Reason Comments Med Refill Encounter Details Date Type Department Care Team (Late st Contact Info) Description 07/29/2023 Refill [place] [facility] [address], [address] [place] [address] Latricia Ryan PA [address] [place] [address] Social History Tobacco Use Types [...] Telephone Encounter - Latricia Ryan PA - 07/31/2023 8:54 AM EDT Crispin lou-sent documented in this encounter Plan of Treatment Upcoming Encounters Date Type Department Care Team (Late st Contact Info) Description 05/29/2025 12:00 PM EDT Consult [facility] [place] - Memory [address] [place] [phone] Cb Hatch MD [address] [place] [address] 10/02/2025 2:10 PM EST Office Visit [place] [facility] [address], [address] [place] [address] Latricia Ryan PA [address] [facility] [place] [address] documented as of this encounter Visit Diagnoses Not on filedocumented in this encounter Additional Health Concerns Assessment Noted Time A fall risk assessment has been complete d for the patient 06/29/2023 2:17 PM EDT A Body Mass Index follow-up plan has been documented for the patient 06/29/2023 2:43 PM EDT documented as of this encounter Care Teams Technical Analyst Relationship Specialty Start Date End Date Niko Livingston PCP - General 02/11/22 Sandra [place] MD [address] [facility] [address] [place] [address] Consulting Physician Neurology 02/11/22 documented as of this encounter
--- OUTSIDE RECORDS SUMMARY | 2025-04-15 13:34 | XMS_ITS | Encounter Summary ---
Author Organization Healthcare Address [address] [place] [address] Care Team Providers Care Customer Greeter Name Role Phone Niko Livingston Primary Care Provider Sandra Comer MD Unavailable [phone] Encounter Details Date Type Department Care Team (Latest Contact Info) Description 04/02/2025 Travel Social History Tobacco Use Types Packs/Day Years [...] on file documented as of this encounter Plan of Treatment Upcoming Encounters Date Type Department Care Team (Late st Contact Info) Description 05/29/2025 12:00 PM EDT Consult [facility] [place] - Memory [address] [place] [phone] Cb Hatch MD [address] [place] [address] 10/02/2025 2:10 PM EST [facility] Visit [facility] [address], [address] [place] [address] Latricia Ryan PA [address] [place] [address] documented as of this encounter Visit Diagnoses Not on filedocumented in this encounter Additional Health Concerns Assessment Noted Time A fall risk assessment has been complete d for the patient 04/02/2025 2:08 PM EDT A Body Mass Index follow-up plan has been documented for the patient 04/02/2025 2:56 PM EDT documented as of this encounter Care Teams Customer Greeter Relationship Specialty Start Date End Date Niko Livingston PCP - General 02/11/22 Sandra [place] MD [address] [place] [address] Consulting Physician Neurology 02/11/22 documented as of this encounter
--- OUTSIDE RECORDS SUMMARY | 2025-04-15 13:34 | XMS_ITS | Clinical Summary ---
Author Organization [facility] Address [address] [place] [address] Care Team Providers Care Unix Manager Name Role Phone CarinaNiko hsieh Primary Care Provider Sandra Comer MD Unavailable [phone] Allergies Active Allergy Reactions Criticality Noted Date Comments Citalopram Nausea 04/02/2025 Medications Arnuity Ellipta 100 MCG/ACT aerosol powder 07/15/2021 Acti ve albuterol 108 (90 Base) MCG/ACT inhaler If needed 03/03/2021 Act gaurav montelukast (Singulair) 10 MG tablet 07/15/2021 Active pravastatin (Pravachol) 40 MG tablet 06/04/2021 Active niacin 500 MG tablet Take 1 tablet (500 mg) by mouth 2 (two) times a day with meals. Active Ascorbic Acid (vitamin C) 250 MG tablet Take 1 tablet (250 mg) by mouth 1 (one) time each day. Active Multiple Vitamin (multivitamin) capsule Take 1 capsule by mouth 1 (one) time each day. Active FLUoxetine (PROzac) 20 MG capsule 04/27/2023 Active cholecalciferol (Vitamin D-3) 125 MCG (5000 UT) capsule Take 1 tablet by mouth Daily. Active loratadine (Claritin) 10 MG tablet Take 1 tablet (10 mg) by mouth Daily. Active pregabalin (Lyrica) 100 MG capsule TAKE 1 CAPSULE BY MOUTH THREE TIMES DAILY MAY CAUSE DROWSINESS 270 capsule 1 12/09/2024 Active donepezil (Aricept) 10 MG tablet Take 1 tablet (10 mg) by mouth daily. 90 tablet 1 12/30/2024 Active polyethylene glycol (MiraLax) 17 GM/SCOOP powder 1 (one) time each day at the same time. Active cetirizine (ZyrTEC) 10 MG tablet Take 1 tablet by mouth daily. Active lamoTRIgine (LaMICtal) 25 MG tablet Take 1 tablet by mouth 2 times a day. 180 tablet 3 04/02/2025 Active Active Problems Problem Noted Date Diagnosed Date Tremor 08/13/2021 Anxiety 08/13/2021 Neuropathy 08/13/2021 Lower urinary tract symptoms 08/13/2021 Encounters Date Type Department Care Team Description 04/10/[address], [address] [place] [address] Latricia Ryan PA 04/02/2025 2:10 PM EDT Office Visit [place] [id number] [facility], [address] [place] [address] Latricia Ryan PA Tremor (Primary Dx); MCI (mild cognitive impairment) 04/02/2025 Travel 03/17/[address], [address] [place] [address] Latricia Ryan PA from Last 3 Months Family History Medical History Relation Name Comments Heart attack Father Colon cancer Mother Relation Name Status Comments Father Mother Social History Tobacco Use Types Packs/Day Years [...] on file Sexual Orientation Not on file Last Filed Vital Signs Vital Sign Reading Time Taken Comments Blood Pressure 140/70 04/02/2025 2:00 PM EDT Pulse 54 04/02/2025 2:00 PM EDT Temperature - - Respiratory Rate 18 06/29/2023 2:12 PM EDT Oxygen Saturation 96% 04/02/2025 2:00 PM EDT Inhaled Oxygen Concentration - - Weight 110 kg (242 lb 11.6 oz) 04/02/2025 2:00 P M EDT Height 190.5 cm (6' 3 ) 04/02/2025 2:00 PM EDT Body Mass Index 30.34 04/02/2025 2:00 PM EDT Plan of Treatment Upcoming Encounters Date Type Department Care Team (Late st Contact Info) Description 05/29/2025 12:00 PM EDT Consult [facility] [place] - Memory [address] [place] [phone] Cb Hatch MD [address] [place] [address] 10/02/2025 2:10 PM EST Office Visit [place] [facility] [address], [address] [place] [address] Latricia Ryan, PA [address] [place] [address] Health Maintenance Due Date Last Done Comments [facility]-Depression Screening 1950 [facility]-Hepatitis C Screening 1950 [facility]-Medicare Annual Wellness (AWV) 1950 [facility]-/Child/Adol SDOH Screenings 1950 [facility]- SDOH Screenings 1968 [facility]-Adult SDOH Screenings 1968 CT Colonography 1995 Colonoscopy 1995 FIT-DNA 1995 FIT 1995 FOBT 1995 Sigmoidoscopy 1995 [facility]-Colorectal Cancer Screening 1995 [facility]-RSV Vaccine: 60+ Years or (1 - Risk 60-74 years 1-dose series) 2010 [facility]-Zoster Vaccines (2 of 3) 09/28/2019 08/03/2019, 08/10/2012 [id number] Vaccine (7 - Moderna risk season) 2025 09/03/2024, 08/01/2023, 06/29/2022, Additional history exists [facility]-DTaP,Tdap,and Td Vaccines (2 - Td or Tdap) 01/29/2026 01/30/2016, 03/21/1996 [facility]-Hepatitis A Vaccines Aged Out 03/21/1996 No longer eligible based on patient's age to complete this topic [facility]-Pneumococcal Vaccine: 50+ Years Completed 08/03/2018, 08/05/2016, 08/09/2013 [facility]-Influenza Vaccine Completed 08/01/2024 , 08/02/2022, 08/03/2021, Additional history exists [facility]-Obesity Intervention Completed 025, 10/02/2024, 04/04/2024, Additional history exists HPV Vaccines Aged Out No longer eligi ble based on patient's age to complete this topic [facility]-HIB Vaccines Aged Out No longer e ligible based on patient's age to complete this topic [facility]-IPV Vaccines Aged Out No longer e ligible based on patient's age to complete this topic [facility]-Rotavirus Vaccines Aged Out No lo nger eligible based on patient's age to complete this topic Insurance [facility] MEDICARE Care Teams Unix Manager Relationship Specialty Start Date End Date Niko Livingston PCP - General 02/11/22 Sandra [place] MD [address] [facility] [address] [place] [address] Consulting Physician Neurology 02/11/22
--- OUTSIDE RECORDS SUMMARY | 2025-04-15 13:34 | XMS_ITS | Patient Health Record ---
Author Organization [facility] Address [address] [place] [id number] Care Team Providers Care Bean Roaster Name Role Phone Valentin Barr Primary Care Provider Arabella Watkins [phone] Allergies Allergen (clinical drug ingredient) Drug/Non Drug Allergy documented on EMR Reaction Allergy Type Onset Date Status citalopram CeleXA nausea Drug Allergy Active Results Component Value Reference Range Notes H-CMP Reviewed date:08/01/2024 05:06:30 PM Interpretation:co2- 31, bun 8 Performing Lab: Notes/Report: NA 140 136-145 mmol/L K 4.1 3.5-5.1 mmoL/L CL 106 98-107 mmol/L CO2 31 22.0-30.0 mmol/L GAP 7.1 5-15 mEq/L BUN 8 9-20 mg/dl CREATT 0.90 0.66-1.25 mg/dl GFRAA 100 >60 ML/MIN EGFR 82 >60 ml/min GLU 91 74-100 mg/dl CA 9.1 8.4-10.2 mg/dl BILIT 0.8 0.2-1.3 mg/dl AST 39 17-59 U/L ALT 32 12-78 U/L TP 6.6 6.3-8.2 g/dl ALB 4.2 3.5-5.0 g/dl GLOB 2.4 1.3-3.2 g/dL AGRATIO 1.8 1.1-1.8 ALP 62 38-126 U/L H-Lipid Panel Reviewed date:08/01/2024 05:06:30 PM Interpretation:trigs 165, chol 207, chol/hdl 4 Performing Lab: Notes/Report: Patient Fasting? Y TRIG 165 30-150 mg/dl CHOL 207 140-200 mg/dl DLDL 105.98 100-129 mg/dL VLDL 33 0-40 mg/dL HDL 52 40-60 mg/dl CHLHDL 4.0 1-3.5 H-VITAMIN D Reviewed date:08/01/2024 05:06:30 PM Interpretation:35.8 Performing Lab: Notes/Report: TVITD 35.8 30-100 ng/mL Deficient <20 ng/mL Insufficient 20-30 ng/mL Sufficient 30-100 ng/mL Potential Toxicity >100 ng/mL H-CMP Reviewed date:01/30/2025 01:52:21 PM Interpretation: Performing Lab: Notes/Report: NA 142 136-145 mmol/L K 4.3 3.5-5.1 mmoL/L CL 107 98-107 mmol/L CO2 28 22.0-30.0 mmol/L GAP 11.3 5-15 mEq/L BUN 10 9-20 mg/dl CREATT 1.00 0.66-1.25 mg/dl GFRAA 88 >60 ML/MIN EGFR 73 >60 ml/min GLU 99 74-100 mg/dl CA 8.8 8.4-10.2 mg/dl BILIT 0.6 0.2-1.3 mg/dl AST 36 17-59 U/L ALT 37 12-78 U/L TP 6.9 6.3-8.2 g/dl ALB 4.0 3.5-5.0 g/dl ALP 76 38-126 U/L NA 142 136-145 mmol/L K 4.3 3.5-5.1 mmoL/L CL 107 98-107 mmol/L CO2 28 22.0-30.0 mmol/L GAP 11.3 5-15 mEq/L BUN 10 9-20 mg/dl CREATT 1.00 0.66-1.25 mg/dl GFRAA 88 >60 ML/MIN EGFR 73 >60 ml/min GLU 99 74-100 mg/dl CA 8.8 8.4-10.2 mg/dl BILIT 0.6 0.2-1.3 mg/dl AST 36 17-59 U/L ALT 37 12-78 U/L TP 6.9 6.3-8.2 g/dl ALB 4.0 3.5-5.0 g/dl GLOB 2.9 1.3-3.2 g/dL AGRATIO 1.4 1.1-1.8 ALP 76 38-126 U/L H-Lipid Panel Reviewed date:01/30/2025 01:52:21 PM Interpretation: Performing Lab: Notes/Report: Patient Fasting? Y TRIG 162 30-150 mg/dl CHOL 175 140-200 mg/dl DLDL 97.67 100-129 mg/dL VLDL 32 0-40 mg/dL HDL 43 40-60 mg/dl CHLHDL 4.1 1-3.5 H-VITAMIN D Reviewed date:01/30/2025 01:52:21 PM Interpretation: Performing Lab: Notes/Report: TVITD 40.6 30-100 ng/mL Deficient <20 ng/mL Insufficient 20-30 ng/mL Sufficient 30-100 ng/mL Potential Toxicity >100 ng/mL H-PSA Reviewed date:08/01/2024 05:06:30 PM Interpretation:Normal Performing Lab: Notes/Report: PSASC 1.1 0.0-4.0 ng/ml Reason For Referral No Information Medications Medication SIG (Take, Route, Frequency, Duration) Notes Start Date End Date Status Niacin 500 MG 2 tab(s) orally daily Active CareTouch CPAP & BIPAP Hose DIRECTED Active Pravastatin Sodium 40 MG 1 tab(s) orally once a day (at bedtime) Active MiraLax 17 GM/SCOOP 1 scoop mixed with 8 ounces of fluid Orally Once a day Active methylPREDNISolone 4 MG as directed Orally 01/30/2025 Active Vitamin D3 125 MCG (5000 UT) 1 tab(s) orally once a day Active FLUoxetine HCl 20 MG 1 tab(s) Orally once a day Active Loratadine 10 MG 1 tab(s) orally once a day Active Medrol 4 MG as directed 08/26/2022 Not-T aking Arnuity Ellipta 100 MCG/ACT 1 puff(s) inhaled every 24 hours Active Donepezil HCl 10 MG 1 tablet at bedtime Orally Once a day; Duration: 30 day(s) Active Myrbetriq 25 MG 1 tab(s) orally once a day Not-Taking Pregabalin 50 MG 1 capsule Orally Three times a day Active Aspirin 81 81MG 1 TAB(S) ONCE A DAY *Please review and pick correct strength-formula tion from [employer] guard unlimited options. If intended option is not shown, discontinue and re-order from Quick Search* Not-Taking Montelukast Sodium 10 MG 1 tab(s) orally once a day Active Immunizations Vaccine Route Administration Date Status Comme nts COVID 19 Moderna IM Intramuscular 10/21/2020 Administered COVID 19 Moderna IM Intramuscular 11/18/2020 Administered COVID 19 Moderna Unknown 06/25/2021 Administered COVID 19 Moderna IM Intramuscular 06/25/2021 Administered Covid Booster was given by [facility] Fluzone High Dose (65yr and older) IM Intramuscular 08/07/2015 Administered Fluzone High Dose (65yr and older) IM Intramuscular 08/05/2016 Administered Fluzone High Dose (65yr and older) IM Intramuscular 08/01/2017 Administered Fluzone High Dose (65yr and older) IM Intramuscular 08/04/2018 Administered Given MP Fluzone High Dose (65yr and older) IM Intramuscular 08/06/2019 Administered Fluzone High Dose (65yr and older) IM Intramuscular 08/07/2020 Administered Fluzone High Dose (65yr and older) IM Intramuscular 08/03/2021 Administered Fluzone High Dose (65yr and older) IM Intramuscular 08/02/2022 Administered Fluzone High Dose (65yr and older) Unknown 08/02/2022 Administered Fluzone High Dose (65yr and older) IM Intramuscular 08/03/2023 Administered Fluzone High Dose (65yr and older) IM Intramuscular 08/01/2024 Administered PNEUMOVAX 23 VACCINE IM Intramuscular 08/09/2013 Administe red PNEUMOVAX 23 VACCINE IM Intramuscular 08/03/2018 Administe red Prevnar (PCV13) IM Intramuscular 08/05/2016 Administered Shingrix IM Intramuscular 08/03/2019 Administered Tetanus Tdap-Adacel (over 7yrs) IM Intramuscular 01/30/2016 Administered xAdministration of injection IM Intramuscular 08/10/2012 Administered xFlu shot-36 months and older IM Intramuscular 09/10/2005 Administered xFlu shot-36 months and older IM Intramuscular 09/02/2006 Administered xFlu shot-36 months and older IM Intramuscular 08/02/2007 Administered xFlu shot-36 months and older IM Intramuscular 08/05/2008 Administered xFlu shot-36 months and older IM Intramuscular 07/02/2009 Administered xFlu shot-36 months and older IM Intramuscular 08/02/2010 Administered xFlu shot-36 months and older IM Intramuscular 08/05/2011 Administered xFluzone (6mos and older)-trivalent IM Intramuscular 08/10/2012 Administered xFluzone (6mos and older)-trivalent IM Intramuscular 08/09/2013 Administered xFluzone Intradermal (18-64yrs)-trivalent ID Intradermal 08/05/2014 Administered Problems Problem Type SNOMED Code ICD Code Onset Dates Problem Status W/U Status Risk Notes Problem Vitamin D deficiency (10707697) Vitamin D deficiency (E55.9) Active confirmed Problem Seasonal allergy (844081971) Seasonal allergies (J30.2) Active confirmed Problem Body mass index 30+ - obesity (077758015) BMI 30.0-30.9,adult (Z68.30) Active confirmed Problem Acute constipation (390793686) Acute constipation (K59.00) Active confirmed Problem Generalized anxiety disorder (59235573) Generalized anxiety disorder (F41.1) Active confirmed Problem Neuropathy (542049631) Neuropathy (G62.9) Active confirmed Problem Obstructive sleep apnea syndrome (75013158) RAMSES (obstructive sleep apnea) (G47.33) Active confirmed Problem Body mass index 30.00 to 34.99 (385556591618825 ) BMI 31.0-31.9,adult (Z68.31) Active confirmed Problem Dyslipidemia (285277221) Dyslipidemia (E78.5) Active confirmed Vital Signs Heart Rate 57 /min 03/27/2025 Blood pressure diastolic 60 mm Hg 03/27/2025 Height 75 in 03/27/2025 Blood pressure systolic 126 mm Hg 03/27/2025 Weight 242.6 lbs 03/27/2025 BMI 30.32 kg/m2 03/27/2025 Encounters Encounter Location Date Provider Diagnosis [facility] [address] [facility] [address] [place] [id number] 08/01/2024 Arabella Watkins Generalized anxiety disorder F41.1 ; Vitamin D deficiency E55.9 ; Dyslipidemia E78.5 ; RAMSES (obstructive sleep apnea) G47.33 ; Seasonal allergies J30.2 ; Encounter for immunization Z23 and BMI 29.0-29.9,adult Z68.29 [facility] [address] [place], [place] [id number] 01/30/2025 Arabella Watkins Adult general medica l examination Z00.00 ; Generalized anxiety disorder F41.1 ; Vitamin D deficiency E55.9 ; Dyslipidemia E78.5 ; RAMSES (obstructive sleep apnea) G47.33 ; Seasonal allergies J30.2 and BMI 31.0-31.9,adult Z68.31 [facility] [address] [place], [place] [id number] 03/27/2025 Arabella Huertafleet Constipation K59.00 and BMI 30.0-30.9,adult Z68.30 [facility] [address] [place], [place] [id number] 04/22/2024 Valentin Sanford Generalized anxiety disorder F41.1 [facility] [address] [place], [place] [id number] 03/17/2025 Valentin Sanford [facility] [address] [place], [place] [id number] 03/17/2025 Valentin Sanford [facility] [address] [place], [place] [id number] 04/07/2025 Valentin Sanford Assessments Encounter Date Diagnosis (ICD Code) Assessment Notes Treatment Notes Treatment Clinical Notes Section Notes 04/22/2024 Generalized anxiety disorder (ICD-10 - F41.1) 08/01/2024 Vitamin D deficiency (ICD-10 - E55.9) 08/01/2024 Generalized anxiety disorder (ICD-10 - F41.1) 01/30/2025 Generalized anxiety disorder (ICD-10 - F41.1) 01/30/2025 Adult general medical examination (ICD-10 - Z00.00) Patient instructed to return to office Annually for Annual Wellness Visits to include annual screenings of Pain assessment, Functional Ability assessment, Cognitive Ability assessment, Fall Risk assessment, Depression screening and Bladder control screening. 03/27/2025 Constipation (ICD-10 - K59.00) Continue MiraLAX daily 03/27/2025 BMI 30.0-30.9,adult (ICD-10 - Z68.30) 08/01/2024 Dyslipidemia (ICD-10 - E78.5) Reinforced diet and weight loss 01/30/2025 Vitamin D deficiency (ICD-10 - E55.9) 01/30/2025 Dyslipidemia (ICD-10 - E78.5) Reinforced diet and weight loss 08/01/2024 RAMSES (obstructive sleep apnea) (ICD-10 - G47.33) 08/01/2024 Seasonal allergies (ICD-10 - J30.2) 01/30/2025 RAMSES (obstructive sleep apnea) (ICD-10 - G47.33) 01/30/2025 Seasonal allergies (ICD-10 - J30.2) 08/01/2024 Encounter for immunization (ICD-10 - Z23) 08/01/2024 BMI 29.0-29.9,adult (ICD-10 - Z68.29) Cautioned on weight. Reinforced diet and exercise 01/30/2025 BMI 31.0-31.9,adult (ICD-10 - Z68.31) 03/27/2025 Other Discharge summary with available lab/diagnostic imaging results obtained and reviewed. Discharge medication list reconciled. Appropriate counseling provided. Moderate Complexity Plan Of Treatment Next Appt Details Provider Name:Arabella Ferreira, 07/31/2025 09:45:00 AM, [address] [facility], [address], [place], [place], [id number], Insurance Providers Payer Name Payer Address Payer Phone Subscriber Number Group Number Insured Name Patient Relationship to Insured Coverage Start Date Coverage End Date MEDICARE PART B [address] [address] [place] [address] [id number] FIDELINA BARCLAY Self - patient is the insured [facility] [employer] [address] [place] [id number] FIDELINA BARCLAY Self - patient is the insured Medications Administered Medication Instructions Date of Administration Dosage Notes Dexamethasone 12/29/2012 1 mL Dexamethasone 12/04/2015 1 mL Dexamethasone 09/27/2016 1 mL Medical (General) History Medical History History ICD Code hyperlipidemia psoriasis Sleep apnea Seasonal allergies Colon polyps Overactive bladder Tremor Mild cognitive deficit Surgical History Surgery Date(Month/Year) C-scope - Dr. Pepe 2003,2008,2014, 20 18 Hospitalization History Reason Date(Month/Year) Clinic-cough 09/28/17 [facility] ER-vertigo 6.9.17
== END 2025-04-15 23:59 | disposition home or self-care (01) ==
LOC: RAD 13:32
PROVIDERS: PCP Family Medicine; Visit Provider Physician Assistant
DX: I67.82 Cerebral ischemia (principal); J32.0 Chronic maxillary sinusitis; R90.89 Other abnormal findings on diagnostic imaging of central nervous system
CPT/HCPCS: 70551

== ENCOUNTER 2025-07-28 06:58 | Outpatient (CLI) | payer MEDICARE, SELFPAY ==
--- OUTSIDE RECORDS SUMMARY | 2024-02-01 06:00 | XMS_ITS ---
Author Organization [facility] Address [address] [facility] [address] [place] [id number] Care Team Providers Care It Infrastructure Manager Name Role Phone Onaka Valentin Primary Care Provider Arabella Watkins [phone] Allergies Allergen (clinical drug ingredient) Drug/Non Drug Allergy documented on EMR Reaction Allergy Type Onset Date Status citalopram CeleXA nausea Drug Allergy Active REASON FOR VISIT 6 month check and Annual Wellness Visit Medications Medication SIG (Take, Route, Frequency, Duration) Notes Start Date End Date Status Medrol 4 MG as directed 08/26/2022 Not-T aking Pregabalin 50 MG 1 capsule Orally Three times a day Active Aspirin 81 81MG 1 TAB(S) ONCE A DAY *Please review and pick correct [facility]ati [facility]. If intended option is not shown, discontinue and re-order from Quick Search* Not-Taking Donepezil HCl 10 MG 1 tablet at bedtime Orally Once a day; Duration: 30 day(s) Active Myrbetriq 25 MG 1 tab(s) orally once a day Not-Taking Pravastatin Sodium 40 MG 1 tab(s) orally once a day (at bedtime) Active Montelukast Sodium 10 MG 1 tab(s) orally once a day Active FLUoxetine HCl 20 MG 1 tab(s) Orally once a day Active Vitamin D3 125 MCG (5000 UT) 1 tab(s) orally once a day Active Arnuity Ellipta 100 MCG/ACT 1 puff(s) inhaled every 24 hours Active Loratadine 10 MG 1 tab(s) orally once a day Active CareTouch CPAP & BIPAP Hose DIRECTED Active Niacin 500 MG 2 tab(s) orally daily Active Problems Problem Type SNOMED Code ICD Code Onset Dates Problem Status W/U Status Risk Notes Problem Dyslipidemia (737455212) Dyslipidemia (E78.5) Active confirmed Vital Signs Blood pressure systolic 116 mm Hg 02/01/20 24 Blood pressure diastolic 72 mm Hg 024 Heart Rate 68 /min 02/01/2024 Height 75 in 02/01/2024 Weight 231 lbs 02/01/2024 BMI 28.87 kg/m2 02/01/2024 Encounters Encounter Location Date Provider Diagnosis [facility] [address] [place], [place] [id number] 02/01/2024 Arabella Watkins Adult general medica l examination Z00.00 ; Generalized anxiety disorder F41.1 ; Vitamin D deficiency E55.9 ; Dyslipidemia E78.5 ; RAMSES (obstructive sleep apnea) G47.33 ; Seasonal allergies J30.2 ; Encounter for immunization Z23 and BMI 28.0-28.9,adult Z68.28 Assessments Encounter Date Diagnosis (ICD Code) Assessment Notes Treatment Notes Treatment Clinical Notes Section Notes 02/01/2024 Adult general medical examination (ICD-10 - Z00.00) Patient instructed to return to office Annually for Annual Wellness Visits to include annual screenings of Pain assessment, Functional Ability assessment, Cognitive Ability assessment, Fall Risk assessment, Depression screening and Bladder control screening. 02/01/2024 Generalized anxiety disorder (ICD-10 - F41.1) 02/01/2024 Vitamin D deficiency (ICD-10 - E55.9) 02/01/2024 Dyslipidemia (ICD-10 - E78.5) Reinforced diet and weight loss 02/01/2024 RAMSES (obstructive sleep apnea) (ICD-10 - G47.33) 02/01/2024 Seasonal allergies (ICD-10 - J30.2) 02/01/2024 Encounter for immunization (ICD-10 - Z23) 02/01/2024 BMI 28.0-28.9,adult (ICD-10 - Z68.28) Plan Of Treatment Medication Medication Name Sig Start Date Stop Date Notes Pravastatin Sodium 40 MG 1 tab(s) orally once a day (at bedtime) Montelukast Sodium 10 MG 1 tab(s) orally once a day FLUoxetine HCl 20 MG 1 tab(s) Orally once a day Vitamin D3 125 MCG (5000 UT) 1 tab(s) orally once a day Treatment Notes Assessment Notes Adult general medical examination Patien t instructed to return to office Annually for Annual Wellness Visits to include annual screenings of Pain assessment, Functional Ability assessment, Cognitive Ability assessment, Fall Risk assessment, Depression screening and Bladder control screening. Dyslipidemia Reinforced diet and weight loss Next Appt Details Follow Up: 6 Months, Reason: Provider Name:Arabella Ferreira, 07/31/2025 09:45:00 AM, [address], [address], [place], [id number], Progress Notes * ISHMAEL BARCLAYB:[birth year] (75 yo M)Acc No.[id number]:02/01/2024 Annual Wellness Visit Patient: FIDELINA CRUZ Provider: Arabella Watkins M.D. :1950 A ge:73 Y S ex:Male Date:02/01/2024 Address:[address] [place] [address], [place], [id number] Pcp:Valentin Barr Subjective: * Chief Complaints: * 1 . 6 month check and Annual Wellness Visit. * HPI: H PI: Patient is here today for a scheduled check up and a Medicare Annual Wellness Visit. See [facility] lab results drawn 01/29/2024. Pt sts that he needs a refill of Montelukast, Pravastatin, and Fluoxetine. Pt sts that he has no new concerns or complaints. C ardiology: He has gained weight since his prison at the first of the year. Denies : Chest Pain. D enies : Short of Breath. D enies : Palpitations. D enies : Leg Edema. * ROS: D ERMATOLOGY: no R barrera. n o H malick. G ASTROENTEROLOGY: no N ausea. n o V omiting. n o D iarrhea.? U ROLOGY: no D ifficulty urinating. n o B lood in urine. * Medical History: H yperlipidemia, Psoriasis, Sleep apnea, Seasonal allergies, Colon polyps, Overactive bladder, Tremor, Mild cognitive deficit. * Surgical History: C -scope - Dr. Pepe 2004,2009,2014, 2018. * Hospitalization/Major Diagno stic Procedure: H ER-vertigo 6.9.17, Clinic-cough 09/28/17. * Family History: F ather: , [place], diabetes. M other: , cancer. 1 brother(s) , 1 sister(s) - healthy. 1 daughter(s) - healthy. . * Social History: C URRENT TOBACCO USE S moking Status: Patient does NOT smoke. C affeine: yes, frequency:. Marital Status: . Past smoking status: no. Alcohol: Type: , Frequency: ,Years: , Determination:. * Medications: T aking Donepezil HCl 10 MG Tablet 1 tablet at bedtime Orally Once a day , Taking Pregabalin 50 MG Capsule 1 capsule Orally Three times a day , Taking Loratadine 10 MG Tablet 1 tab(s) orally once a day , Taking Arnuity Ellipta 100 MCG/ACT Aerosol Powder Breath Activated 1 puff(s) inhaled every 24 hours , Taking Niacin 500 MG Tablet 2 tab(s) orally daily , Taking CareTouch CPAP & BIPAP Hose DIRECTED , Taking Montelukast Sodium 10 MG Tablet 1 tab(s) orally once a day , Taking Vitamin D3 125 MCG (5000 UT) Capsule 1 tab(s) orally once a day , Taking FLUoxetine HCl 20 MG Tablet 1 tab(s) Orally once a day , Taking Pravastatin Sodium 40 MG Tablet 1 tab(s) orally once a day (at bedtime) , Not-Taking Myrbetriq 25 MG Tablet Extended Release 24 Hour 1 tab(s) orally once a day , Not-Taking Aspirin 81 81MG 1 TAB(S) ONCE A DAY , Notes to Pharmacist: *Please review and pick correct strength-formulation from [employer] options. If intended option is not shown, discontinue and re-order from Quick Search*, Not-Taking Medrol 4 MG Tablet Therapy Pack as directed , Discontinued Medrol 4 MG Tablet Therapy Pack as directed orally daily , Medication List reviewed and reconciled with the patient * Allergies: C eleXA: nausea - Side Effects. Objective: * Vitals: W t:231, Temp:97.7, BP:116/72, HR:68, O2 Sat:98% on RA, Nurse:JULIANN, Ht: 75, BMI:28.87. * Examination: G eneral Examination: General Appearance: N AD. Weight g ain noted. H EENT: sclera and conjunctiva clear, PERRLA, TM's normal, translucent. O ral cavity: n o lesions, mucosa moist and WNL, no erythema. N vania: s upple, no lymphadenopathy. H eart: RSR. L ungs: c lear to auscultation. E xtremities: n o leg edema. ? * Physical Examination: G ENERAL: Pain Assessment: P ain level: 0, on a scale of 0-10 (with 10 being extreme pain). F unctional Status Assessment: P atient response to question of how often physical health interferes with daily activities: . Occasionally Able to perform ADLs-including meal preparation, grocery shopping, housework, laundry, taking medications or handling finances. Cognitive Status: alert and oriented. Ambulation Status: Fully ambulatory . F all Risk Assessment: I ndependant in ambulation, adequate lighting in home. Patient has NOT fallen or had trouble walking within the past 12 months. D epression Screening: D enies depressed mood or anxiety. Describes emotional health as: calm. B ladder Control Screening: s mall problems. Assessment: * Assessment: 1. A dult general medical examination - Z00.00 (Primary) 2 . G eneralized anxiety disorder - F41.1 3 . V itamin D deficiency - E55.9 4 .?Dyslipidemia - E78.5 5 . O SA (obstructive sleep apnea) - G47.33 6. S easonal allergies - J30.2 7 . E ncounter for immunization - Z23? 8. B [place] 28.0-28.9,adult - Z68.28 Plan: * Treatment: 2. G eneralized anxiety disorder Refill FLUoxetine HCl Tablet, 20 MG, 1 tab(s), Orally, once a day, 90, Refills 1. 3. V itamin D deficiency Continue Vitamin D3 Capsule, 125 MCG (5000 UT), 1 tab(s), orally, once a day. 4. D yslipidemia Refill Pravastatin Sodium Tablet, 40 MG, 1 tab(s), orally, once a day (at bedtime), 90, Refills 1.? Notes: Reinforced diet and weight loss 5. O thers Refill Montelukast Sodium Tablet, 10 MG, 1 tab(s), orally, once a day, 90, Refills 1. * Procedure Codes: G 0439 ANNUAL WELLNESS VST; PPS SUBSQT VST, 73852 PULSE OX, G0444 ANNUAL DEPRESSION SCREENING 15 MIN, 1090F PRES/ABSN URINE INCON ASSESS, 3288F FALL RISK ASSESSMENT DOCD, 1170F FXNL STATUS ASSESSED, 1126F AMNT PAIN NOTED NONE PRSNT, 1159F MED LIST DOCD IN RCRD, 1003F LEVEL OF ACTIVITY ASSESS, 1036F TOBACCO NON-USER, 3017F COLORECTAL CA SCREEN DOC REV, G8482 FLU IMMUNIZE ORDER/ADMIN, 4040F PNEUMOC IMM ORDER/ADMIN, G8510 NEG SCR Depression PT NOT ELIG F/U/PLN DOC, 3074F SYST BP LT 130 MM HG, 3078F DIAST BP < 80 MM HG * Preventive Medicine: Counseling: E motional health: D iscussed ways to improve socialization. B ladder control: M ethods of controlling or managing leakage of urine discussed. E xercise: Patient advised to start, increase or maintain level of exercise/physical activity. I njury prevention: F all prevention discussed. Discussed need for cane/walker. Potential trip hazards discussed. Immunizations: T etanus u p to date. P neumococcal r ecommended. I nfluenza u p to date. C OVID-19 u p to date. Screening / Special Tests: C olonoscopy 1 11/06/2020, polyps, hemorrhoids, repeat 3-5 years. P SA 1 , normal. * Follow Up: 6 Months * Images: Billing Information: * Visit Code: 37984 Office Visit, Est Pt., Level 3. Modifiers: 25 * Procedure Codes: G0439 ANNUAL WELLNESS VST; PPS SUBSQT VST. 04529 PULSE OX. G0444 ANNUAL DEPRESSION SCREENING 15 MIN. 1090F PRES/ABSN URINE INCON ASSESS. 3288F FALL RISK ASSESSMENT DOCD. 1170F FXNL STATUS ASSESSED. 1126F AMNT PAIN NOTED NONE PRSNT. 1159F MED LIST DOCD IN RCRD. 1003F LEVEL OF ACTIVITY ASSESS. 1036F TOBACCO NON-USER. 3017F COLORECTAL CA SCREEN DOC REV. G8482 FLU IMMUNIZE ORDER/ADMIN. 4040F PNEUMOC IMM ORDER/ADMIN. G8510 NEG SCR Depression PT NOT ELIG F/U/PLN DOC. 3074F SYST BP LT 130 MM HG. 3078F DIAST BP < 80 MM HG. * Electronic signature of Arabella Watkins MD on 07/28/2025 at 07:01 AM EDT Sign off status: Pending * Provider: Arabella Watkins M.D. Date: 0 02/01/2024 Generated for Ines jeff/Cheko/Jamarcus on: 1 07:01 AM EDT History and Physical Notes * HPI (History of Present Illness) Category Sub-Category Detail Notes Category Not es Cardiology Short of Breath Chest Pain Palpitations Leg Edema HPI Patient is here today for a [facility] check up and a Medicare Annual Wellness Visit. See [facility] lab results drawn 01/29/2024. Pt sts that he needs a refill of Montelukast, Pravastatin, and Fluoxetine. Pt sts that he has no new concerns or complaints Physical Examination Category Sub-Category Detail Notes Section Note s GENERAL Pain Assessment: Pain level: 0, on a scale of 0-10 (with 10 being extreme pain) Functional Status Assessment: Patient response to question of how often physical health interferes with daily activities: . Occasionally Able to perform ADLs-including meal preparation, grocery shopping, housework, laundry, taking medications or handling finances. Cognitive Status: alert and oriented. Ambulation Status: Fully ambulatory Fall Risk Assessment: Independant in amb ulation, adequate lighting in home. Patient has NOT fallen or had trouble walking within the past 12 months Depression Screening: Denies depressed m ood or anxiety. Describes emotional health as: calm Bladder Control Screening: small problem s Examination Category Sub-Category Detail Notes Category Not es General Examination HEENT: sclera and c onjunctiva clear, PERRLA, TM's normal, translucent Heart: RSR Lungs: clear to auscultatio n Extremities: no leg edema General Appearance: NAD. Weight gain not ed Neurologic Exam: Neck: supple, no lymphaden opathy Oral cavity: no lesions, mucosa m oist and WNL, no erythema Chest:
--- OUTSIDE RECORDS SUMMARY | 2024-08-01 05:30 | XMS_ITS ---
Author Organization [facility] Address [address] [place] [id number] Care Team Providers Care Sheet Metal Technician Name Role Phone [place] Valentin Primary Care Provider [phone] Arabella Watkins [phone] Allergies Allergen (clinical drug ingredient) Drug/Non Drug [...] [address] [place], [place] [id number] 08/01/2024 Arabella Watkins Generalized anxiety disorder F41.1 [address], [place], [id number], Progress Notes * FIDELINA BARCLAYDOB:[birth year] (75 yo M)Acc No.[id number]:08/01/2024 Patient: FIDELINA CRUZ Provider: Arabella Watkins M.D. :1950 A ge:74 Y S ex:Male Date:08/01/2024 Address:[facility] [address] , [id number] Pcp:Valentin [...] 09/28/17. * Family History: F ather: , [place], diabetes. M other: , cancer. 1 brother(s) [...] *Please review and pick correct strength-formulation from [employer] options. If intended option is not shown, [...] for immunization - Z23 7 . B SC 29.0-29.9,adult - Z68.29 Plan: * Treatment: 2. V itamin D deficiency Continue Vitamin D3 Capsule, 125 MCG (5000 UT), 1 tab(s), orally, once a day. 3. D yslipidemia Refill Pravastatin Sodium Tablet, 40 MG, 1 tab(s), orally, once a day (at bedtime), 90, Refills 1.? Notes: Reinforced diet and weight loss 4. B SC 29.0-29.9,adult Notes: Cautioned on weight. Reinforced diet and exercise * Immunizations: Fluzone High Dose (65yr and older) : 0.5 mL (Route: Intramuscular) given by Haydee Aguirre on Right Deltoid (Encounter for immunization) * Follow Up: 6 Months * Images: Billing Information: * Visit Code: 72548 Office Visit, Est Pt., Level 4. * Procedure Codes: * Electronic signature of Arabella Watkins MD on 07/28/2025 at 07:02 AM EDT Sign off status: Pending * Provider: Arabella Watkins M.D. Date: Generated for Ines jeff/Cheko/Goyoitting on: 07:02 AM EDT History and Physical Notes * HPI (History of Present Illness) Category Sub-Category Detail Notes Category Not es [facility] [...]
--- OUTSIDE RECORDS SUMMARY | 2025-01-30 05:45 | XMS_ITS ---
Author Organization [facility] Address [address] [facility] [address] [place] [id number] Care Team Providers Care Window Glazier Helper Name Role Phone Valentin Barr Primary Care Provider [phone] Arabella Watkins [phone] Allergies Allergen (clinical drug ingredient) Drug/Non Drug [...] Problem Body mass index 30.00 to 34.99 ([id number] 107) BMI 31.0-31.9,a dult (Z68.31) Active confirmed Vital Signs Blood pressure systolic 130 mm Hg 01/31/20 25 Blood pressure diastolic 78 mm Hg 025 Heart Rate 67 /min 01/30/2025 Height 75 in 01/30/2025 Weight 251.2 lbs 01/30/2025 BMI 31.39 kg/m2 01/30/2025 Encounters Encounter Location Date Provider Diagnosis [facility] [address] [facility] [address] [place] [address], [place] [phone] 01/30/2025 Arabella Watkins Adult general medica l [...] Follow Up: 6 Months, Reason: Provider Name:Arabella Trinidad et, 07/31/2025 09:45:00 AM, [address], [address], [place], [place], [id number], Progress Notes * FIDELINA BARCLAYDOB:[birth year] (75 yo M)Acc No.[id number]:01/30/2025 Annual Wellness Visit Patient: FIDELINA CRUZ Provider: Arabella Watkins M.D. :1950 A ge:74 Y S ex:Male Date:01/30/2025 Address:[address] [place], [place] [address] [id number] Pcp:Valentin Barr Subjective: * Chief Complaints: * [...] Surgical History: C -scope - Dr. Pepe 2004,2009,2015, 2018. * Hospitalization/Major Diagno stic Procedure: H [...] the past 12 months. D epression Screening: Ryan gillespie depressed mood or anxiety. Describes emotional health as: calm. B ladder Control Screening: D jose miguel problems. Assessment: * Assessment: 1. A dult general medical examination - Z00.00 (Primary) 2 . G eneralized anxiety disorder - F41.1 3 . V itamin D deficiency - E55.9 4 .?Dyslipidemia - E78.5 5 . O SA (obstructive sleep apnea) - G47.33 6. S easonal allergies - J30.2 7 . B [place] 31.0-31.9,adult - Z68.31 ? Plan: * Treatment: [...] * Images: Billing Information: * Visit Code: 22657 Office Visit, Est Pt., Level 3. Modifiers: [...] Watkins M.D. Date: 0 01/30/2025 Generated for Ines jeff/Cheko/Jamarcus on: 1 07:02 AM EDT History and Physical Notes * HPI (History of Present Illness) Category Sub-Category Detail Notes Category Not es ENT/respiratory sore throat Fever HPI Patient is here today for a [facility] 6 month check up and a [...]
--- OUTSIDE RECORDS SUMMARY | 2025-03-27 09:45 | XMS_ITS ---
Author Organization [facility] Address [address] [place] [id number] Care Team Providers Care Solution Designer Name Role Phone Valentin Barr Primary Care Provider [phone] Arabella Watkins [phone] Allergies Allergen (clinical drug ingredient) Drug/Non Drug Allergy documented on EMR Reaction Allergy Type Onset Date Status citalopram CeleXA nausea Drug Allergy Active REASON FOR VISIT [facility] d/c f/u, Colonoscopy 08/2021 recommended f/u [...] Problem Body mass index 30+ - obesity (817692833) BMI 30.0-30.9,a dult (Z68.30) Active confirmed Vital Signs Blood pressure systolic 126 mm Hg 03/27/20 25 Blood pressure diastolic 60 mm Hg 025 Heart Rate 57 /min 03/27/2025 Height 75 in 03/27/2025 Weight 242.6 lbs 03/27/2025 BMI 30.32 kg/m2 03/27/2025 Encounters Encounter Location Date Provider Diagnosis [facility] [address] [facility] [address] [place], [place] [id number] 03/27/2025 Arabella Watkins Constipation K59.00 and BMI [...] Provider Name:Arabella Ferreira, 07/31/2025 09:45:00 AM, [address] [facility] [address], [address], [place] [id number], Progress Notes * SHAHZAD BARCLAY:[birth year] (75 yo M)Acc No.[id number]:03/27/2025 Patient: FIDELINA CRUZ Provider: Arabella Watkins M.D. :1950 A ge:74 Y S ex:Male Date:03/27/2025 Address:[address], [id number] Pcp:Valentin Barr Subjective: * Chief Complaints: * 1 . [facility] d/c f/u. 2. Colonoscopy 08/2021 recommended f/u 3-5 years. * HPI: H PI: Patient is here today for a Transition of Care Visit. Discharge from the following Facility: [facility] following admission for Constipation ,Discharge date: 03/17/2025 [...] *Please review and pick correct strength-formulation from Dialsan options. If intended option is not shown, discontinue and re-order from Quick Search*, Not-Taking Medrol 4 MG Tablet Therapy Pack as directed , Medication List reviewed and reconciled with the patient * Allergies: C eleXA: nausea - Side Effects. Objective: * Vitals: W t: 242.6, Temp: 98.3, BP: 126/60, HR: 57, Nurse: [facility], Ht: 75, BMI:30.32. * Examination: G eneral Examination: General Appearance: N AD. A bdomen: s oft, not distended, nontender, bowel sounds present, no organomegaly or masses. Assessment: * Assessment: 1. C onstipation - K59.00 (Primary) 2 . B [place] 30.0-30.9,adult - Z68.30 ? Plan: * Treatment: [...] * Images: Billing Information: * Visit Code: 65214 Office Visit, Est Pt., Level 3. * Procedure Codes: 41695 TRANS CARE MGMT 14 DAY DISCH. 1111F [...] 0 03/27/2025 Generated for Printi randee/Cheko/eTransmitting on: 1 07:02 AM EDT History and [...] Care Visit. Discharge from the following Facility: [facility] following admission for Constipation ,Discharge date: 03/17/2025 ,Date of phone contact following discharge: 03/18/2025. Examination Category Sub-Category Detail Notes Category Not es General Examination Abdomen: soft, not di stended, nontender, bowel sounds present, no organomegaly or masses General Appearance: NAD
--- OUTSIDE RECORDS SUMMARY | 2025-05-29 12:00 | XMS_ITS | Encounter Summary ---
Author Organization [facility] Address [address] [place] [address] Care Team Providers Care [employer] Name Role Phone Carinajori Niko Primary Care Provider Sandra Comer MD Unavailable [phone] Reason for Referral * Imaging (Routine) - Closed Specialty Diagnoses / Procedures [facility]erred To Contact Radiology Diagnoses Mild dementia with other behavioral disturbance, unspecified dementia type (CMS/HCC) Procedures NM Brain Scan w SPECT/CT Cb Hatch MD [address] [address] Phone: tel: fax: Referral ID Status Reason Start Date Expiration Date Visits Re quested Visits Authorized [id number] Closed 05/29/2025 11/28/2026 2 2 * Imaging (Routine) - Closed Specialty Diagnoses / Procedures [facility] Referred To Contact Radiology Diagnoses Mild dementia with other behavioral disturbance, unspecified dementia type (CMS/HCC) Procedures PET/CT Amyloid Brain Cb Hatch MD [address] [address] Phone: tel: fax: Referral ID Status Reason Start Date Expiration Date Visits Re quested Visits Authorized [id number] Closed 05/29/2025 11/28/2026 2 2 Reason for Visit * Reason Comments Consult Memory Loss * Consultation (Routine) - Closed Specialty Diagnoses / Procedures Referred By Monica t Referred To Contact Neurology Diagnoses MCI (mild cognitive impairment) Latricia Ryan PA [address] [place] [address] Phone: tel: fax: Referral ID Status Reason Start Date Expiration Date V isits Requested Visits Authorized [id number] Closed Specialty Services Required 10/02/2024 04/03/2026 1 1 Encounter Details Date Type Department Care Team (Late st Contact Info) Description 05/29/2025 12:00 PM EDT [facility] [place] [facility] [address] [place] [id number] Cb Hatch MD [address] [address] Mild dementia with other behavioral disturbance, unspecified dementia type (CMS/HCC) (Primary Dx) Social History Tobacco Use Types Packs/Day Years [...] Sign Reading Time Taken Comments Blood Pressure 140/79 05/29/2025 12:06 PM EDT Pulse 51 05/29/2025 12:06 PM EDT Temperature - - Respiratory Rate 18 05/29/2025 12:06 PM EDT Oxygen Saturation 98% 05/29/2025 12:06 PM EDT Inhaled Oxygen Concentration - - Weight 113 kg (249 lb) 05/29/2025 12:06 PM EDT Height 190.5 cm (6' 3 ) 05/29/2025 12:06 PM EDT Body Mass Index 31.12 05/29/2025 12:06 PM EDT documented in this encounter Miscellaneous Notes * Progress Notes - Cb Hatch MD - 05/29/2025 12:00 PM EDT Dear Latricia Ryan PA, I had the pleasure of seeing Bennett Yap who is a 75 y.o. male being seen at the [facility] today for Consult and Memory Loss. This patient is a very pleasant 75-year-old right-handed gentleman with 16 years of education. 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 He is seen regularly by Latricia Ryan in the Neurology Clinic here for essential tremor and a diagnosis of mild memory problems compatible with a diagnosis of mild cognitive impairment. She was last seen in March of 2025. At that time the family was expressing significant concerns about behavioral changes which raised suspicion for a possible frontal lobe syndrome. She was sending him on for repeatimaging. 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 When I asked the patient hours was doing he stated begin I feel like it is good . He was quite loud and pressured on examination giving a frontal flavor however I did note that the entire family behaved in a similar manner including his and daughter. His and daughter who accompany him state that they have noticed frequent repeating behaviors and confabulation of recent events. They all admit that he is fully functional. They do state that they have some concerns as he is more distracted driving currently. They denied any depression but do admit to some anxiety at times. He has also developed a sweet tooth. And is more prone to agitation. They denied any hallucinations, delusions or paranoia. He does have obstructive sleep apnea and is on CPAP. They denied dream enactment behavior. Physically they dothink there is some degree of shuffling but otherwise denied any signs or symptoms of parkinsonism or focal neurologic deficits. When Latricia saw them in March she was concerned about some of the behavioral changes and had started a mood stabilizer. The family states that this has been incredibly helpful. Given the pressured speech I suspect that there is some degree of hypomania and/or bipolar tendencyhere which is responding well to that mood stabilizer. Memory Loss Associated symptoms include numbness and weakness. Pertinent negatives include no fatigue. Past Medical History[1] Family History[2] Surgical History[3] Social History Tobacco Use Smoking status: Never Passive exposure: Never Smokeless tobacco: Never Substance Use Topics Alcohol use: Never Alcohol/week: 1.0 standard drink of alcohol Types: 1 Standard drinks or equivalent per week Medications Ordered Prior to Encounter[4] Allergies[5] All medications and allergies reviewed today. Review of Systems Constitutional: Positive for appetite change. Negative for activity change and fatigue. HENT: Positive for voice change. Negative for hearing loss and trouble swallowing. Eyes: Negative. Negative for visual disturbance. Respiratory: Negative. Cardiovascular: Negative. Gastrointestinal: Positive for constipation. Endocrine: Negative. Genitourinary: Positive for frequency and urgency. Musculoskeletal: Positive for gait problem. Skin: Negative. Allergic/Immunologic: Negative. Neurological: Positive for tremors, speech difficulty, weakness and numbness. Negative for seizures. Hematological: Negative. Psychiatric/Behavioral: Positive for agitation and behavioral problems. Negative for dysphoric mood, hallucinations and sleep disturbance. The patient is nervous/anxious and is hyperactive. Objective Vitals: 05/29/25 1206 BP: (!) 140/79 Pulse: 51 Resp: 18 SpO2: 98% Physical Exam Vitals reviewed. Constitutional: General: He is not in acute distress. Appearance: Normal appearance. He is not ill-appearing, toxic-appearing or diaphoretic. HENT: Head: Normocephalic and atraumatic. Eyes: General: No visual field deficit or scleral icterus. Extraocular Movements: Extraocular movements intact. Conjunctiva/sclera: Conjunctivae normal. Neck: Thyroid: No thyroid mass or thyroid tenderness. Vascular: No carotid bruit. Cardiovascular: Rate and Rhythm: Normal rate and regular rhythm. Pulses: Normal pulses. Pulmonary: Effort: Pulmonary effort is normal. Breath sounds: Normal breath sounds. No wheezing, rhonchi or rales. Abdominal: General: Abdomen is flat. Bowel sounds are normal. Palpations: Abdomen is soft. Musculoskeletal: General: Normal range of motion. Cervical back: Neck supple. Skin: General: Skin is warm and dry. Capillary Refill: Capillary refill takes less than 2 seconds. Neurological: General: No focal deficit present. Mental Status: He is alert. Mental status is at baseline. Cranial Nerves: No cranial nerve deficit, dysarthria or facial asymmetry. Sensory: Sensation is intact. No sensory deficit. Motor: Motor function is intact. No weakness, tremor, atrophy, abnormal muscle tone, seizure activity or pronator drift. Coordination: Coordination is intact. Coordination normal. Rapid alternating movements normal. Gait: Gait is intact. Gait normal. Deep Tendon Reflexes: Reflexes are normal and symmetric. Reflexes normal. Reflex Scores: Tricep reflexes are 2+ on the right side and 2+ on the left side. Bicep reflexes are 2+ on the right side and 2+ on the left side. Brachioradialis reflexes are 2+ on the right side and 2+ on the left side. Patellar reflexes are 2+ on the right side and 2+ on the left side. Achilles reflexes are 2+ on the right side and 2+ on the left side. Comments: Negative Cruz's reflex bilaterally. Negative palmar grasp bilaterally. Normal glabellar tap reflex. Psychiatric: Attention and Perception: Attention normal. He is attentive. He does not perceive auditory or visual hallucinations. Mood and Affect: Mood normal. Speech: He is communicative. Speech is not delayed or slurred. Behavior: Behavior is cooperative. Thought Content: Thought content normal. On examination today he is pleasant and cooperative. He is again pressured in speech and some of his behaviors but this is a notable characteristic of his and daughter as well. His language functions in terms of fluency, comprehension, naming, and repetition were all intact. His Short Test of Mental status score was 34/38. He missed 2 points on the attentional task he missed 1 point on constructions with incorrect hand placement on his clock draw and missed 1 point on delayed recall. He could only name 13 animals in 60 seconds. He was a bit hyperactive on examination with finger tapping and rubbing in what looked to be a pill rolling tremor. He did have a mild reduction in the amplitude of his alternating motion rates but otherwise there was no overt parkinsonism. The remainder of his neurologic exam was completely normal and nonfocal. Discussion Summary: Final diagnosis: Mild cognitive impairment There are certainly some behavioral characteristics that appear to be very problematic to the family. 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 I am concerned about a pill rolling tremor and mild reduction in the amplitudes of his alternating motionrates in his upper extremities that could be suggestive of early parkinsonism. This raises the Specter of a mixed pathological process with a component of Lewy body disease. The family is currently seeking a definitive diagnosis. As such I have decided to send him on for an amyloid PET scan as well as a DUNG scan to look for Alzheimer's as well as Lewy body disease. They did have a more recent MRI performed in the last month however they forgot this disc at home and the test was performed in their local area that I do not have access to the images through. I have asked them to bring the disc back when they return for their next evaluation. I do not wish to make any changes to his medication regimen at this point we have a more definitivediagnosis. I have arranged a follow-up visit in approximately 4 weeks' time or as soon as the amyloid PET and DUNG scan can be completed and the results are available. He is still fully functional in all of his daily activities and as such there are no active safety issues and or need for community resources at this time. I did encourage the family to continue to watch his driving carefully although he is still scoring cognitively in arrange were driving safety should not be an issue. The family is quite comfortable with the plan for further diagnostic evaluation that I have laid out. I look forward to seeing them back at a time when we hopefully can provide a more definitive diagnosis. Assessment/Plan: Diagnosis Plan 1. Mild dementia with other behavioral disturbance, unspecified dementia type (CMS/HCC) PET/CT Amyloid Brain NM Brain Scan w SPECT/CT [1] History reviewed. No pertinent past medical history. [2] Family History Problem Relation Name Age of Onset Colon cancer Mother Heart attack Father [3] Past Surgical History: Procedure Laterality Date COLONOSCOPY [4] Current Outpatient Medications on File Prior to Visit Medication Sig Dispense Refill albuterol 108 (90 Base) MCG/ACT inhaler If needed Arnuity Ellipta 100 MCG/ACT aerosol powder Ascorbic Acid (vitamin C) 250 MG tablet Take 1 tablet (250 mg) by mouth 1 (one) time each day. cetirizine (ZyrTEC) 10 MG tablet Take 1 tablet by mouth daily. cholecalciferol (Vitamin D-3) 125 MCG (5000 UT) capsule Take 1 tablet by mouth Daily. donepezil (Aricept) 10 MG tablet Take 1 tablet (10 mg) by mouth daily. 90 tablet 1 FLUoxetine (PROzac) 20 MG capsule lamoTRIgine (LaMICtal) 25 MG tablet Take 1 tablet by mouth 2 times a day. 180 tablet 3 montelukast (Singulair) 10 MG tablet Multiple Vitamin (multivitamin) capsule Take 1 capsule by mouth 1 (one) time each day. niacin 500 MG tablet Take 1 tablet (500 mg) by mouth 2 (two) times a day with meals. polyethylene glycol (MiraLax) 17 GM/SCOOP powder 1 (one) time each day at the same time. pravastatin (Pravachol) 40 MG tablet pregabalin (Lyrica) 100 MG capsule TAKE 1 CAPSULE BY MOUTH THREE TIMES DAILY MAY CAUSE DROWSINESS 270 capsule 1 [DISCONTINUED] loratadine (Claritin) 10 MG tablet Take 1 tablet (10 mg) by mouth Daily. (Patient not taking: Reported on 05/29/2025) No current facility-administered medications on file prior to visit. [5] Allergies Allergen Reactions Citalopram Nausea documented in this encounter Plan of Treatment Upcoming Encounters Date Type Department Care Team (Late st Contact Info) Description 08/05/2025 9:00 AM EDT [facility] [place] [facility] [address] [place] [address] Yasmeen Roque PA [address] [place] [address] 10/02/2025 2:10 PM EST Office Visit [facility] [address] [place] [address] Latricia Ryan PA [address] [place] [address] documented as of this encounter Results * PET/CT Amyloid Brain (07/16/2025 2:53 PM EDT) Anatomical Region Laterality Modality Positron Emissio n Tomography (PET) Impressions 07/16/2025 4:16 PM EDT F-18 Amyvid scan demonstrates: 1. Visual assessment shows no substantial beta-Amyloid deposition in the cerebral cortex. Therefore, this scan does not appear consistent with a diagnosis of Alzheimer's disease. 2. Centiloid scores measuring greater than 29 have been associated with a risk of progression to Alzheimer's disease over 5 years. CRITICAL RESULT: No. COMMUNICATION: Per this written report. Drafted by Madiha Petersen on 07/16/2025 3:36 PM Final report signed by Madiha Petersen on 07/16/2025 4:16 PM Narrative 07/16/2025 4:16 PM EDT CLINICAL INDICATION: 75 [id number] Male diagnosed with dementia, nonvascular etiology suspected presenting for amyloid plaque evaluation with F-18 (florbetapir) (Amyvid). TECHNIQUE: Radiopharmaceutical: 8.39 mCi of F-18 (florbetapir) (Amyvid) administered intravenously at 1359 at the right AC. Incubation interval: 30 minutes. Positioning: Supine, arms by sides. PET/CT scanner: Siemens Biograph 40 mCT. PET/CT acquisition: Head (Brain). PET reconstruction method: Point Spread Function-Time of Flight (PSF-TOF), 4 iterations, 21 subsets, with and without CT-based attenuation correction. CT: Low-dose, [id number], without intravenous contrast. TOTAL DLP (Dose Length Product): 755.51 mGy.cm . Advanced quantitative analysis and both regional and global SUV ratios (SUVr) were reviewed as well as the Global Centiloid Score. COMPARISON/CORRELATION: MR head/brain without contrast 08/16/2025. Nuclear medicine DUNG scan 06/26/2025. FINDINGS: Technical quality: Adequate. Interpretation: without knowledge of clinical information as directed in the F- 18 (florbetapir) (Amyvid) instructions. Cerebellar uptake: Grossly symmetric. Cerebral uptake: Grossly symmetric. Grossly preserved cerebral cortical uptake with preservation of malone/white matter differentiation. Global SUVr: 0.91 Centiloid score: -17.0 CT findings: No evidence of acute hemorrhage or ischemia. Mild cerebral atrophy. Periventricular and subcortical white matter low attenuation alterations, possibly sequela of small vessel ischemic disease. No mass, mass effect, or midline displacement of structures. Normal ventricular size and configuration for age. There are mild amyloid plaque ratios that are greater than 1. Specifically, the precuneus with a ratio of 1.1 and in the temporal region with a ratio of 1.13. All others are measured at 1.0 or below. Procedure Note Madiha Petersen, DO - 07/16/2025 CLINICAL INDICATION: 75 [id number] Male diagnosed with dementia, nonvascular etiologysuspected presenting for amyloid plaque evaluation with F-18 (florbetapir)(Amyvid). TECHNIQUE: Radiopharmaceutical: 8.39 mCi of F-18 (florbetapir) (Amyvid) administeredintravenously at 1359 at the right AC. Incubation interval: 30 minutes. Positioning: Supine, arms by sides. PET/CT scanner: Siemens Biograph 40 mCT. PET/CT acquisition: Head (Brain). PET reconstruction method: Point Spread Function-Time of Flight (PSF-TOF),4 iterations, 21 subsets, with and without CT-based attenuationcorrection. CT: Low-dose, [id number], without intravenous contrast. TOTAL DLP (Dose Length Product): 755.51 mGy.cm . Advanced quantitative analysis and both regional and global SUV ratios(SUVr) were reviewed as well as the Global Centiloid Score. COMPARISON/CORRELATION: MR head/brain without contrast 08/16/2025. Nuclear medicine DUNG scan06/26/2025. FINDINGS: Technical quality: Adequate. Interpretation: without knowledge of clinical information as directed inthe F-18 (florbetapir) (Amyvid) instructions. Cerebellar uptake: Grossly symmetric. Cerebral uptake: Grossly symmetric. Grossly preserved cerebral cortical uptake with preservation of malone/whitematter differentiation. Global SUVr: 0.91 Centiloid score: -17.0 CT findings: No evidence of acute hemorrhage or ischemia. Mild cerebral atrophy. Periventricular and subcortical white matter low attenuation alterations,possibly sequela of small vessel ischemic disease. No mass, mass effect, or midline displacement of structures. Normal ventricular size and configuration for age. There are mild amyloid plaque ratios that are greater than 1.Specifically, the precuneus with a ratio of 1.1 and in the temporal regionwith a ratio of 1.13. All others are measured at 1.0 or below. IMPRESSION: F-18 Amyvid scan demonstrates: 1.Visual assessment shows no substantial beta-Amyloid deposition in thecerebral cortex. Therefore, this scan does not appear consistent with adiagnosis of Alzheimer's disease. 2.Centiloid scores measuring greater than 29 have been associated with arisk of progression to Alzheimer's disease over 5 years. CRITICAL RESULT: No. COMMUNICATION: Per this written report. Drafted by Madiha Petersen on 07/16/2025 3:36 PM Final report signed by Madiha Petersen on 07/16/2025 4:16 PM us Cb Hatch MD IMG NM PROCEDURES Final Resul t * NM Brain Scan w SPECT/CT (06/26/2025 2:41 PM EDT) Anatomical Region Laterality Modality Nuclear Medicine Impressions 06/26/2025 5:37 PM EDT DaTscan SPECT/CT study demonstrates evidence of dopamine transporter deficit, which is not consistent with Parkinson's disease or other presynaptic parkinsonian condition. CRITICAL RESULT: No. COMMUNICATION: Per this written report. By electronically signing this report, I, the attending physician, attest that I have personally reviewed the images/data for the above examination(s) and agree with the final edited report. Drafted by Ralf Arthur MD on 06/26/2025 5:08 PM Final report signed by Sofya Rosario MD on 06/26/2025 5:37 PM Narrative 06/26/2025 5:37 PM EDT CLINICAL INDICATION: Parkinsonian symptomatology. Evaluate the essential tremor versus Parkinson's. TECHNIQUE: Oral potassium iodide was administered one hour before radiopharmaceutical administration. At 3-4 hours following a 3-minute intravenous infusion of 5.7 mCi of I-123 ioflupane (DaTscan), SPECT and CT images of the brain were acquired and processed using Siemens Greencartvo 16 SPECT/CT hybrid technology. Three-dimensional attenuation- corrected SPECT, CT and fused SPECT/CT tomographic images in coronal, sagittal, and transverse planes were created and reviewed interactively to optimize sensitivity, specificity, and anatomic localization. CT: low-dose, [id number]-epxq, without intravenous contrast; TOTAL DLP (Dose Length Product): 969.02 mGy.cm mGy*cm. Semi- quantitative analysis of Striatal Binding Ratio (SBR) relative to age-matched mean was performed to support visual qualitative interpretation. For reference to the report, annotated images have not been created and made available in PACS. COMPARISON/CORRELATION: No comparison. Correlated with outside MRI brain 04/15/2025. FINDINGS: Technical Quality: Acceptable. Image Interpretation: Interactions of the administered radiopharmaceutical with patient s medication(s) may affect the biodistribution; however, interactions should affect the biodistribution within the entire striatum and should not influence an asymmetrical pattern of reduced localization. Asymmetrical localization. Left Basal Ganglia: Caudate: Normal localization. Putamen: Normal localization. Semi-quantitative Analysis of Striatum: All striatal Binding Ratios (SBRs) within 2 standard deviations of age-matched means. Right Basal Ganglia: Caudate: Normal localization. Putamen: Normal localization. Semi-quantitative Analysis of Striatum: All striatal Binding Ratios (SBRs) within 2 standard deviations of age-matched means. Additional CT: Periventricular hypodensities suggestive of chronic small vessel ischemic changes. Ventricles are symmetrical. Basilar cisterns are patent. No intracranial hemorrhage or midline shift. Procedure Note Sofya Leo MD - 06/26/2025 CLINICAL INDICATION: Parkinsonian symptomatology. Evaluate the essential tremor versusParkinson's. TECHNIQUE: Oral potassium iodide was administered one hour before radiopharmaceuticaladministration. At 3-4 hours following a 3-minute intravenous infusion of 5.7 mCi of I- 123ioflupane (DaTscan), SPECT and CT images of the brain were acquired andprocessed using Siemens MV Sistemasa Intevo 16 SPECT/CT hybrid technology.Three-dimensional attenuation- corrected SPECT, CT and fused SPECT/CTtomographic images in coronal, sagittal, and transverse planes werecreated and reviewed interactively to optimize sensitivity, specificity,and anatomic localization. CT: low-dose, ojz-maegex-ciwf, withoutintravenous contrast; TOTAL DLP (Dose Length Product): 969.02 mGy.cmmGy*cm. Semi-quantitative analysis of Striatal Binding Ratio (SBR)relative to age- matched mean was performed to support visual qualitativeinterpretation. For reference to the report, annotated images have not been created andmade available in PACS. COMPARISON/CORRELATION: No comparison. Correlated with outside MRI brain 04/15/2025. FINDINGS: Technical Quality: Acceptable. Image Interpretation: Interactions of the administered radiopharmaceuticalwith patient s medication(s) may affect the biodistribution; however,interactions should affect the biodistribution within the entire striatumand should not influence an asymmetrical pattern of reduced localization. Asymmetrical localization. Left Basal Ganglia: Caudate: Normal localization. Putamen: Normal localization. Semi-quantitative Analysis of Striatum: All striatal Binding Ratios (SBRs)within 2 standard deviations of age-matched means. Right Basal Ganglia: Caudate: Normal localization. Putamen: Normal localization. Semi-quantitative Analysis of Striatum: All striatal Binding Ratios (SBRs)within 2 standard deviations of age-matched means. Additional CT: Periventricular hypodensities suggestive of chronic small vessel ischemicchanges. Ventricles are symmetrical. Basilar cisterns are patent. No intracranial hemorrhage or midline shift. IMPRESSION: DaTscan SPECT/CT study demonstrates evidence of dopamine transporterdeficit, which is not consistent with Parkinson's disease or otherpresynaptic parkinsonian condition. CRITICAL RESULT: No. COMMUNICATION: Per this written report. By electronically signing this report, I, the attending physician, yoan I have personally reviewed the images/data for the aboveexamination(s) and agree with the final edited report. Drafted by Ralf Arthur MD on 06/26/2025 5:08 PM Final report signed by Sofya Rosario MD on 06/26/2025 5:37 PM us Cb Hatch MD IMG NM PROCEDURES Final Resul t documented in this encounter Visit Diagnoses Diagnosis Mild dementia with other behavioral disturbance, unspecified dementia type (CMS/HCC)- Primary Mild dementia with other behavioral disturbance, unspecified dementia type (CMS/HCC) Mild dementia with other behavioral disturbance, unspecified dementia type (CMS/HCC) documented in this encounter Additional Health Concerns Assessment Noted Time A fall risk assessment has been complete d for the patient 05/29/2025 12:07 PM EDT A Body Mass Index follow-up plan has been documented for the patient 05/29/2025 12:57 PM EDT documented as of this encounter Care Teams Sports Internship Relationship Specialty Start Date End Date Niko Livingston PCP - General 02/11/22 Sandra Mason MD [address] [place] [address] Consulting Physician Neurology 02/11/22 documented as of this encounter
--- OUTSIDE RECORDS SUMMARY | 2025-06-26 09:02 | XMS_ITS | Encounter Summary ---
Author Organization [facility] Address [address] [place] [address] Care Team Providers Care Order Caller Name Role Phone Carinajori Niko Primary Care Provider Sandra Comer MD Unavailable [phone] Reason for Referral * Imaging (Routine) - Closed Specialty Diagnoses / Procedures Referred By Monica t Referred To Contact Radiology Diagnoses Mild dementia with other behavioral disturbance, unspecified dementia type (CMS/HCC) Procedures NM Brain Scan w SPECT/CT Cb Hatch MD [address] [address] Phone: tel: fax: Referral ID Status Reason Start Date Expiration Date Visits Re quested Visits Authorized [id number] Closed 05/29/2025 11/28/2026 2 2 Reason for Visit * Imaging (Routine) - Closed Specialty Diagnoses / Procedures Referred By Monica serra Referred To Contact Radiology Diagnoses Mild dementia with other behavioral disturbance, unspecified dementia type (CMS/HCC) Procedures NM Brain Scan w SPECT/CT Cb Hatch MD [address] [address] Phone: tel: fax: Referral ID Status Reason Start Date Expiration Date Visits Re quested Visits Authorized [id number] Closed 05/29/2025 11/28/2026 2 2 Encounter Details Date Type Department Care Team (Latest Contact Info) Description 06/26/2025 9:02 AM EDT - 06/26/2025 10:14 AM EDT Hospital Encounter [facility]iology [address] [place] [address] Mild dementia with other behavioral disturbance, unspecified dementia type ([facility]) Discharge Disposition: Home or Self Care Social [...] this encounter Medications at Time of Discharge albuterol 108 (90 Base) MCG/ACT inhaler If needed 03/03/2021 Arnuity Ellipta 100 MCG/ACT aerosol powder 07/15/2021 [...] times a day. 270 capsule 06/10/2025 06/10/2026 donepezil (Aricept) 10 MG tablet Take 1 tablet (10 mg) by mouth daily. 90 tablet 1 12/30/2024 07/01/2025 documented as of this encounter Plan of Treatment Upcoming Encounters Date Type Department Care Team (Late st Contact Info) Description 08/05/2025 9:00 AM EDT Office Visit [facility] [place] - Memory [address] [place] [address] Yasmeen Roque, PA [address] [place] [address] 10/02/2025 2:10 PM EST [facility] Visit [facility] [address] [place] [address] Latricia Ryan PA [address] [place] [address] documented as of this encounter Procedures Procedure [...] brain were acquired and processed using Siemens [employer] 16 SPECT/CT hybrid technology. Three-dimensional attenuation- corrected SPECT, CT and fused SPECT/CT tomographic images in coronal, sagittal, and transverse planes were created and reviewed interactively to optimize sensitivity, specificity, and anatomic localization. CT: low-dose, [id number], without intravenous contrast; TOTAL DLP (Dose Length [...] the brain were acquired andprocessed using Siemens [employer] Intevo 16 SPECT/CT hybrid technology.Three-dimensional attenuation- corrected SPECT, CT and fused SPECT/CTtomographic images in coronal, sagittal, and transverse planes werecreated and reviewed interactively to optimize sensitivity, specificity,and anatomic localization. CT: low-dose, [id number]-kcbwkd-[id number], withoutintravenous contrast; TOTAL DLP (Dose Length Product): [...] documented as of this encounter Care Teams Order Caller Relationship Specialty Start Date End Date Niko Livingston PCP - General 02/11/22 Sandra Mason MD [address] [facility] [address] [place] [address] Consulting Physician Neurology 02/11/22 documented as of this encounter
--- OUTSIDE RECORDS SUMMARY | 2025-06-26 10:15 | XMS_ITS | Encounter Summary ---
Author Organization [facility] Address [address] [place] [address] Care Team Providers Care Drug Inspector Name Role Phone Markusdejajori Niko Primary Care Provider Sandra Comer MD Unavailable [phone] Reason for Visit * Imaging (Routine) - Closed Specialty Diagnoses / Procedures Referred By Contac t Referred To Contact Radiology Diagnoses Mild dementia with other behavioral disturbance, unspecified dementia type (CMS/HCC) Procedures NM Brain Scan w SPECT/CT Cb Hatch MD [address] [place] [address] Phone: tel: fax: Referral ID Status Reason Start Date Expiration Date Visits Re quested Visits Authorized [id number] Closed 05/29/2025 11/28/2026 2 2 Encounter Details Date Type Department Care Team (Latest Contact Info) Description 06/26/2025 10:15 AM EDT - 06/26/2025 1:05 PM EDT Hospital Encounter [facility] Radiology [address] [place] [address] Discharge Disposition: Home or Self [...] Description 08/05/2025 9:00 AM EDT Office Visit [facility] [place] - [facility] [address] [place] [address] Yasmeen Roque, PA [address] [place] [address] 10/02/2025 2:10 PM EST Office Visit [facility] [address] [place] [address] Latricia Ryan PA [address] [place] [address] documented as of this encounter Procedures Procedure Name Priority Date/Time Associated Diagnosis Comments NM BRAIN SCAN W SPECT/CT Routine 06/26/2025 2:41 PM EDT Mild dementia with other behavioral disturbance, unspecified dementia type ([facility]) documented in this encounter Visit Diagnoses Not [...] documented as of this encounter Care Teams Drug Inspector Relationship Specialty Start Date End Date Niko Livingston PCP - General 02/11/22 Sandra Mason MD [address] [place] [address] Consulting Physician Neurology 02/11/22 documented as of this encounter
--- OUTSIDE RECORDS SUMMARY | 2025-06-26 13:06 | XMS_ITS | Encounter Summary ---
Author Organization [facility] Address [address] [place] [address] Care Team Providers Care Sharepoint Admin Name Role Phone MarkusdejaNiko hsieh Primary Care Provider Sandra Comer MD Unavailable [phone] Reason for Visit * Imaging (Routine) - Closed Specialty Diagnoses / Procedures Referred By Contac t Referred To Contact Radiology Diagnoses Mild dementia with other behavioral disturbance, unspecified dementia type (CMS/HCC) Procedures NM Brain Scan w SPECT/CT Cb Hatch MD [address] [place] [address] Phone: tel: fax: Referral ID Status Reason Start Date Expiration Date Visits Re quested Visits Authorized [id number] Closed 05/29/2025 11/28/2026 2 2 Encounter Details Date Type Department Care Team (Latest Contact Info) Description 06/26/2025 1:06 PM EDT - 06/26/2025 11:59 PM EDT Hospital Encounter [facility] Rad[facility] [address] [place] [address] Discharge Disposition: Home or Self [...] 08/05/2025 9:00 AM EDT Office Visit [facility] [place] - [facility] [address] [place] [address] Yasmeen Roque, PA [address] [place] [address] 10/02/2025 2:10 PM EST Office Visit [place] [facility] [address] [place] [address] Latricia Ryan, TAMEKA [address] [place] [address] documented as of this encounter [...] brain were acquired and processed using Siemens [employer]vo 16 SPECT/CT hybrid technology. Three-dimensional attenuation- corrected SPECT, CT and fused SPECT/CT tomographic images in coronal, sagittal, and transverse planes were created and reviewed interactively to optimize sensitivity, specificity, and anatomic localization. CT: low-dose, kjf-mwzyys-[id number], without intravenous contrast; TOTAL DLP (Dose Length [...] the brain were acquired andprocessed using Siemens [employer] Intevo 16 SPECT/CT hybrid technology.Three-dimensional attenuation- corrected SPECT, CT and fused SPECT/CTtomographic images in coronal, sagittal, and transverse planes werecreated and reviewed interactively to optimize sensitivity, specificity,and anatomic localization. CT: low-dose, [id number]-ewskom-eyhc, withoutintravenous contrast; TOTAL DLP (Dose Length Product): [...] documented as of this encounter Care Teams Sharepoint Admin Relationship Specialty Start Date End Date Niko Livingston PCP - General 02/11/22 Sandra Mason MD [address] [facility] [address] [place] [address] Consulting Physician Neurology 02/11/22 documented as of this encounter
--- OUTSIDE RECORDS SUMMARY | 2025-07-16 12:54 | XMS_ITS | Encounter Summary ---
Author Organization Healthcare Address [address] [place] [address] Care Team Providers Care Outside Industrial Sales Representative Name Role Phone Carinajori Niko Primary Care Provider Sandra Comer MD Unavailable Reason for Visit * Imaging (Routine) - Closed Specialty Diagnoses / Procedures Referred By Contac t Referred To Contact Radiology Diagnoses Mild dementia with other behavioral disturbance, unspecified dementia type (CMS/HCC) Procedures PET/CT Amyloid Brain Cb Hatch MD [address] [facility] [address] [place] [address] Phone: tel: fax: Referral ID Status Reason Start Date Expiration Date Visits Re quested Visits Authorized [id number] Closed 05/29/2025 11/28/2026 2 2 Encounter Details Date Type Department Care Team (Latest Contact Info) Description 07/16/2025 12:54 PM EDT - 07/16/2025 11:59 PM EDT Hospital Encounter [facility] Radiology [address] [facility] [place] [address] Discharge Disposition: Home or Self Care Social [...] times a day. 270 capsule 06/10/2025 06/10/2026 documented as of this encounter Plan of Treatment Upcoming Encounters Date Type Department Care Team (Late st Contact Info) Description 08/05/2025 9:00 AM EDT [facility] [place] [facility] [address] [place] [address] Yasmeen Roque, PA [address] [place] [address] 10/02/2025 2:10 PM EST Office Visit [place] [facility] [address], 1st [place] [address] Latricia Ryan, TAMEKA [address] [place] [address] documented as of this encounter [...] 07/16/2025 4:16 PM EDT CLINICAL INDICATION: 75 okbqs-vovt-ntm Male diagnosed with dementia, nonvascular etiology suspected [...] and without CT-based attenuation correction. CT: Low-dose, jmj-zuaazr-lotf, without intravenous contrast. TOTAL DLP (Dose Length [...] 1.0 or below. Procedure Note Madiha Petersen, - 07/16/2025 CLINICAL INDICATION: 75 kgjja-ylui-mko Male diagnosed with dementia, nonvascular etiologysuspected presenting [...] with and without CT-based attenuationcorrection. CT: Low-dose, rcc-wscrsb-tmde, without intravenous contrast. TOTAL DLP (Dose Length [...] documented as of this encounter Care Teams Outside Industrial Sales Representative Relationship Specialty Start Date End Date Niko Livingston PCP - General 02/11/22 Sandra Mason MD [id number] [place] [address] Consulting Physician Neurology 02/11/22 documented as of this encounter
--- OUTSIDE RECORDS SUMMARY | 2025-07-16 12:54 | XMS_ITS | Encounter Summary ---
Author Organization [facility] Address [address] [place] [address] Care Team Providers Care Title Search Manager Name Role Phone Aaliyahmaryse Niko Primary Care Provider Sandra Comer MD Unavailable [phone] Reason for Referral * Imaging (Routine) - Closed Specialty Diagnoses / Procedures Referred By Monica serra Referred To Contact Radiology Diagnoses Mild dementia with other behavioral disturbance, unspecified dementia type (CMS/HCC) Procedures PET/CT Amyloid Brain Cb Hatch MD [address] [address] Phone: tel: fax: Referral ID Status Reason Start Date Expiration Date Visits Re quested Visits Authorized [id number] Closed 05/29/2025 11/28/2026 2 2 Reason for Visit * Imaging (Routine) - Closed Specialty Diagnoses / Procedures Referred By Monica serra Referred To Contact Radiology Diagnoses Mild dementia with other behavioral disturbance, unspecified dementia type (CMS/HCC) Procedures PET/CT Amyloid Brain Cb Hatch MD [address] [address] Phone: tel: fax: Referral ID Status Reason Start Date Expiration Date Visits Re quested Visits Authorized [id number] Closed 05/29/2025 11/28/2026 2 2 Encounter Details Date Type Department Care Team (Latest Contact Info) Description 07/16/2025 12:54 PM EDT - 07/16/2025 11:59 PM EDT Hospital Encounter [facility] Radiology [address], [facility] [place] [address] Mild dementia with other behavioral disturbance, unspecified [...] Description 08/05/2025 9:00 AM EDT Office Visit [facility] [place] [facility] [address] [place] [address] Yasmeen Roque PA [address] [place] [address] 10/02/2025 2:10 PM EST [facility] Visit [place] [facility] [address], [address]st [place] [address] Latricia Ryan PA [address] [place] [address] documented as of this encounter Procedures Procedure Name Priority Date/Time Associated Diagnosis Comments PET/CT AMYLOID BRAIN Routine 07/16/2025 2:53 PM EDT Mild dementia with other behavioral disturbance, unspecified dementia type ([facility]) documented in this encounter Results * PET/CT [...] 07/16/2025 4:16 PM EDT CLINICAL INDICATION: 75 rjnae-zknw-uip Male diagnosed with dementia, nonvascular etiology suspected [...] and without CT-based attenuation correction. CT: Low-dose, nxp-zcjdwk-fnpq, without intravenous contrast. TOTAL DLP (Dose Length [...] Petersen DO - 07/16/2025 CLINICAL INDICATION: 75 xsbrx-egzf-zuf Male diagnosed with dementia, nonvascular etiologysuspected presenting [...] with and without CT-based attenuationcorrection. CT: Low-dose, ray-fpwkua-gbzm, without intravenous contrast. TOTAL DLP (Dose Length [...] COMMUNICATION: Per this written report. Drafted by Madiah Petersen on 07/16/2025 3:36 PM Final report [...] documented as of this encounter Care Teams Title Search Manager Relationship Specialty Start Date End Date Niko Livingston PCP - General 02/11/22 Sandra Mason MD [address] [place] [address] Consulting Physician Neurology 02/11/22 documented as of this encounter
--- OUTSIDE RECORDS SUMMARY | 2025-07-28 07:02 | XMS_ITS | Clinical Summary ---
Author Organization [facility] Address [address] [place] [address] Care Team Providers Care Rural Carrier Name Role Phone Yara Niko Primary Care Provider Sandra Comer MD Unavailable [phone] Allergies Active Allergy Reactions Criticality Noted Date Comments Citalopram Nausea 04/02/2025 Medications Arnuity Ellipta 100 MCG/ACT aerosol powder 1 Active albuterol 108 (90 Base) MCG/ACT inhaler If needed 1 Active montelukast (Singulair) 10 MG tablet 1 Active pravastatin (Pravachol) 40 MG tablet 1 Active niacin 500 MG tablet Take 1 tablet (500 mg) by mouth 2 (two) times a day with meals. Active Ascorbic Acid (vitamin C) 250 MG tablet Take 1 tablet (250 mg) by mouth 1 (one) time each day. Active Multiple Vitamin (multivitamin) capsule Take 1 capsule by mouth 1 (one) time each day. Active FLUoxetine (PROzac) 20 MG capsule 3 Active cholecalcifero l (Vitamin D-3) 125 MCG (5000 UT) capsule Take 1 tablet by mouth Daily. Active polyethylene glycol (MiraLax) 17 GM/SCOOP powder 1 (one) time each day at the same time. Active cetirizine (ZyrTEC) 10 MG tablet Take 1 tablet by mouth daily. Active lamoTRIgine (LaMICtal) 25 MG tablet Take 1 tablet by mouth 2 times a day. 180 tablet 3 5 04/02/20 26 Active pregabalin (Lyrica) 100 MG capsule Take 1 capsule by mouth 3 times a day. 270 capsule 5 06/10/20 26 Active donepezil (Aricept) 10 MG tablet TAKE 1 TABLET BY MOUTH ONCE DAILY 90 tablet Active donepezil (Aricept) 10 MG tablet Take 1 tablet (10 mg) by mouth daily. 90 tablet 1 5 07/01/20 25 Discontinued Active Problems Problem Noted Date Diagnosed Date Dyslipidemia 05/30/2025 Generalized anxiety disorder 05/30/2025 Obstructive sleep apnea syndrome 05/30/2025 Tremor 08/13/2021 Anxiety 08/13/2021 Neuropathy 08/13/2021 Lower urinary tract symptoms 08/13/2021 Encounters Date Type Department Care Team Description 07/16/2025 12:54 PM EDT - 07/16/2025 11:59 PM EDT Hospital Encounter [facility] Radiology [address], [place] [address] Discharge Disposition: Home or Self Care 07/16/2025 12:54 PM EDT - 07/16/2025 11:59 PM EDT Hospital Encounter [facility] Radiology [address], [place] [address] Mild dementia with other behavioral disturbance, unspecified dementia type ([facility]) Discharge Disposition: Home or Self Care 07/16/2025 Travel 07/01/2025 Refill [place] [facility] [address], [address]st [place] [address] Latricia Ryan PA 06/26/2025 1:06 PM EDT - 06/26/2025 11:59 PM EDT Hospital Encounter [facility] Radiology [address], [address]nd [place] [address] Discharge Disposition: Home or Self Care 06/26/2025 10:15 AM EDT - 06/26/2025 1:05 PM EDT Hospital Encounter [facility] Rad[facility] [address], [address]nd [place] [address] Discharge Disposition: Home or Self Care 06/26/2025 9:02 AM EDT - 06/26/2025 10:14 AM EDT Hospital Encounter [facility] [address], 2nd [place] [address] Mild dementia with other behavioral disturbance, unspecified dementia type (CMS/HCC) Discharge Disposition: Home or Self Care 06/26/2025 Travel 06/10/2025 Telephone [facility] [address], 1st [place] [address] Latricia Ryan PA Med Refill 06/10/2025 Refill [facility] [address], 1st [place] [address] Latricia Ryan PA 06/04/2025 Telephone [facility] [place] [facility] [address] [place] [address] Cb Hatch MD HCN - Patient Message 06/03/2025 Orders Only Radiology Virtual Dept. [address] [place] [address] Madiha Petersen DO 05/30/2025 Orders Only [facility] Nuclear Medicine [address] [place] [address] India Gudino MD 05/29/2025 12:00 PM EDT Consult [address] [address] Cb Hatch MD Mild dementia with other behavioral disturbance, unspecified dementia type (CMS/HCC) (Primary Dx) 05/29/2025 Travel from Last 3 Months Family History Medical [...] Mass Index 31.12 05/29/2025 12:06 PM EDT Plan of Treatment Upcoming Encounters Date Type Department Care Team (Late st Contact Info) Description 08/05/2025 9:00 AM EDT Office Visit [facility] [place] [facility] [address] [place] [address] Yasmeen Roque, PA [address] [place] [address] 10/02/2025 2:10 PM EST Office Visit [place] [facility] [address], [address]st [place] [address] Latricia Ryan, PA [address] [place] [address] Health Maintenance Due Date Last Done Comments [facility]-Depression Screening 1950 [facility]-Hepatitis C Screening 1950 [facility]-Medicare Annual Wellness (AWV) 1950 [facility]-/Child/Adol SDOH Screenings 1950 [facility]- SDOH Screenings 1968 [facility]-Adult SDOH Screenings 1968 CT Colonography 1995 Colonoscopy 1995 FIT-DNA 1995 FIT 1995 FOBT 1995 Sigmoidoscopy 1995 [facility]-Colorectal Cancer Screening 1995 [facility]-Zoster Vaccines (2 of 3) 09/28/2019 08/03/2019, 08/10/2012 [facility]-RSV Vaccine: 60+ Years or (1 - 1-dose 75+ series) 2025 [id number] Vaccine (7 - Moderna risk season) 2025 09/03/2024, 08/01/2023, 06/29/2022, Additional history exists [facility]-Influenza Vaccine (#1) 06/16/202508/01, 08/02/2022, 08/03/2021, Additional history exists [facility]-DTaP,Tdap,and Td Vaccines (2 - Td or Tdap) 01/29/2026 01/30/2016, 03/21/1996 [facility]-Hepatitis A Vaccines Aged Out 03/21/1996 No longer eligible based on patient's age to complete this topic [facility]-Pneumococcal Vaccine: 50+ Years Completed 08/03/2018, 08/05/2016, 08/09/2013 [facility]-Obesity Intervention Completed 025, 04/02/2025, 10/02/2024, Additional history exists HPV Vaccines Aged Out [...] on patient's age to complete this topic Procedures Procedure Name Priority Date/Time Associated Diagnosis Comments PET/CT AMYLOID BRAIN Routine 07/16/2025 2:53 PM EDT Mild dementia with other behavioral disturbance, unspecified dementia type (CMS/HCC) NM BRAIN SCAN W SPECT/CT Routine 06/26/2025 2:41 PM EDT Mild dementia with other behavioral disturbance, unspecified dementia type (CMS/HCC) from Last 3 Months Results * PET/CT Amyloid Brain (07/16/2025 2:53 [...] 07/16/2025 4:16 PM EDT CLINICAL INDICATION: 75 wysbt-dxtx-dsz Male diagnosed with dementia, nonvascular etiology suspected [...] and without CT-based attenuation correction. CT: Low-dose, yun-mfcimq-ayof, without intravenous contrast. TOTAL DLP (Dose Length [...] measured at 1.0 or below. Procedure Note PetersenMadiha Rubén DO - 07/16/2025 CLINICAL INDICATION: 75 knlmn-nivd-iba Male diagnosed with dementia, nonvascular etiologysuspected presenting [...] with and without CT-based attenuationcorrection. CT: Low-dose, ius-sjqscs-rnmf, without intravenous contrast. TOTAL DLP (Dose Length [...] brain were acquired and processed using Siemens Daleelivo 16 SPECT/CT hybrid technology. Three-dimensional attenuation- corrected SPECT, CT and fused SPECT/CT tomographic images in coronal, sagittal, and transverse planes were created and reviewed interactively to optimize sensitivity, specificity, and anatomic localization. CT: low-dose, ium-yourzg-gypz, without intravenous contrast; TOTAL DLP (Dose Length [...] the brain were acquired andprocessed using Siemens Publictivity Intevo 16 SPECT/CT hybrid technology.Three-dimensional attenuation- corrected SPECT, CT and fused SPECT/CTtomographic images in coronal, sagittal, and transverse planes werecreated and reviewed interactively to optimize sensitivity, specificity,and anatomic localization. CT: low-dose, ixn-kzawex-spox, withoutintravenous contrast; TOTAL DLP (Dose Length Product): [...] MD IMG NM PROCEDURES Final Resul t from Last [address] [facility] MEDICARE Care Teams Rural Carrier Relationship Specialty Start Date End Date Niko Livingston PCP - General 02/11/22 Sandra Mason MD [address] [facility] [address] [place] [phone] Consulting Physician Neurology 02/11/22
--- OUTSIDE RECORDS SUMMARY | 2025-07-28 07:02 | XMS_ITS | Encounter Summary ---
Author Organization [facility] Address [address] [place] [address] Care Team Providers Care Carpet Tile Layer Name Role Phone MarkusdejaNiok hsieh Primary Care Provider Sandra Comer MD Unavailable [phone] Encounter Details Date Type Department Care Team (Latest Contact Info) Description 07/16/2025 Travel Social History Tobacco Use Types Packs/Day [...] 08/05/2025 9:00 AM EDT Office Visit [facility] [place] [facility] [address] [place] [address] Yasmeen Roque PA [address] [place] [address] 10/02/2025 2:10 PM EST Office Visit [place] [facility] [address], [address] [place] [address] Latricia Ryan PA [address] [place] [address] documented as of this encounter Visit Diagnoses Not on filedocumented in this encounter Additional Health Concerns Assessment Noted Time A fall risk assessment has been complete d for the patient 05/29/2025 12:07 PM EDT A Body Mass Index follow-up plan has been documented for the patient 05/29/2025 12:57 PM EDT documented as of this encounter Care Teams Carpet Tile Layer Relationship Specialty Start Date End Date Niko Livingston PCP - General 02/11/22 Sandra Mason MD [address] [facility] [address] [place] [address] Consulting Physician Neurology 02/11/22 documented as of this encounter
--- OUTSIDE RECORDS SUMMARY | 2025-07-28 07:02 | XMS_ITS | Patient Health Record ---
Author Organization [facility] Address [address] [place] [id number] Care Team Providers Care Customer Services Supervisor Name Role Phone [place] Valentin Primary Care Provider Arabella Watkins [phone] Allergies Allergen (clinical drug ingredient) Drug/Non Drug Allergy documented on EMR Reaction Allergy Type Onset Date Status citalopram CeleXA nausea Drug Allergy Active Results Component Value Reference Range Notes H-VITAMIN D Reviewed date:01/30/2025 01:52:21 PM Interpretation: Performing Lab: Notes/Report: TVITD 40.6 30-100 ng/mL Deficient <20 ng/mL Insufficient 20-30 ng/mL Sufficient 30-100 ng/mL Potential Toxicity >100 ng/mL H-Lipid Panel Reviewed date:01/30/2025 01:52:21 PM Interpretation: Performing Lab: Notes/Report: Patient Fasting? Y TRIG 162 30-150 mg/dl CHOL 175 140-200 mg/dl DLDL 97.67 100-129 mg/dL VLDL 32 0-40 mg/dL HDL 43 40-60 mg/dl CHLHDL 4.1 1-3.5 H-CMP Reviewed date:01/30/2025 01:52:21 PM Interpretation: Performing [...] AGRATIO 1.4 1.1-1.8 ALP 76 38-126 U/L H-VITAMIN D Reviewed date:08/01/2024 05:06:30 PM Interpretation:35.8 Performing Lab: Notes/Report: TVITD 35.8 30-100 ng/mL Deficient <20 ng/mL Insufficient 20-30 ng/mL Sufficient 30-100 ng/mL Potential Toxicity >100 ng/mL H-Lipid Panel Reviewed date:08/01/2024 05:06:30 PM Interpretation:trigs 165, chol 207, chol/hdl 4 Performing Lab: Notes/Report: Patient Fasting? Y TRIG 165 30-150 mg/dl CHOL 207 140-200 mg/dl DLDL 105.98 100-129 mg/dL VLDL 33 0-40 mg/dL HDL 52 40-60 mg/dl CHLHDL 4.0 1-3.5 H-CMP Reviewed date:08/01/2024 05:06:30 PM Interpretation:co2- 31, [...] AGRATIO 1.8 1.1-1.8 ALP 62 38-126 U/L H-PSA Reviewed date:08/01/2024 05:06:30 PM Interpretation:Normal Performing [...] review and pick correct strength-formula tion from [employer] options. If intended option is not shown, discontinue and re-order from Quick Search* Not-Taking Montelukast Sodium 10 MG 1 tab(s) orally once a day Active Immunizations Vaccine Route Administration Date Status Comme nts xFluzone Intradermal (18-64yrs)-trivalent ID Intradermal 08/05/2014 Administered xFluzone (6mos and older)-trivalent IM Intramuscular 08/10/2012 Administered xFluzone (6mos and older)-trivalent IM Intramuscular 08/09/2013 Administered xFlu shot-36 months and older IM [...] months and older IM Intramuscular 08/05/2011 Administered xAdministration of injection IM Intramuscular 08/10/2012 Administered Tetanus Tdap-Adacel (over 7yrs) IM Intramuscular 01/30/2016 Administered Shingrix IM Intramuscular 08/03/2019 Administered Prevnar (PCV13) IM Intramuscular 08/05/2016 Administered PNEUMOVAX 23 VACCINE IM Intramuscular 08/09/2013 Administe red PNEUMOVAX 23 VACCINE IM Intramuscular 08/03/2018 Administe red Fluzone High Dose (65yr and older) IM [...] (65yr and older) IM Intramuscular 08/01/2024 Administered COVID 19 Moderna IM Intramuscular 10/21/2020 Administered COVID 19 Moderna IM Intramuscular 11/18/2020 Administered COVID 19 Moderna Unknown 06/25/2021 Administered COVID 19 Moderna IM Intramuscular 06/25/2021 Administered Covid Booster was given by [employer] Problems Problem Type SNOMED Code ICD Code Onset Dates Problem Status W/U Status Risk Notes Problem Vitamin D deficiency (44283643) Vitamin D deficiency (E55.9) Active confirmed Problem Seasonal allergy (788479997) Seasonal allergies (J30.2) Active confirmed Problem Body mass index 30+ - obesity (185231296) BMI 30.0-30.9,adult (Z68.30) Active confirmed Problem Acute constipation (911740173) Acute constipation (K59.00) Active confirmed Problem Generalized anxiety disorder (34349816) Generalized anxiety disorder (F41.1) Active confirmed Problem Neuropathy (354047991) Neuropathy (G62.9) Active confirmed Problem Obstructive sleep apnea syndrome (57236643) RAMSES (obstructive sleep apnea) (G47.33) Active confirmed Problem Body mass index 30.00 to 34.99 (430424131415838 ) BMI 31.0-31.9,adult (Z68.31) Active confirmed Problem Dyslipidemia (875442652) Dyslipidemia (E78.5) Active confirmed Vital Signs Heart Rate 57 /min 03/27/2025 Blood pressure diastolic 60 mm Hg 03/27/2025 Height 75 in 03/27/2025 Blood pressure systolic 126 mm Hg 03/27/2025 Weight 242.6 lbs 03/27/2025 BMI 30.32 kg/m2 03/27/2025 Encounters Encounter Location Date Provider Diagnosis [facility] [address] [facility] [address] [place], [place] [id number] 08/01/2024 Arabella Watkins Generalized anxiety disorder F41.1 ; Vitamin D deficiency E55.9 ; Dyslipidemia E78.5 ; RAMSES (obstructive sleep apnea) G47.33 ; Seasonal allergies J30.2 ; Encounter for immunization Z23 and BMI 29.0-29.9,adult Z68.29 [facility] [address] [place], [place] [id number] 01/30/2025 Arabella Watkins Adult general medica l examination Z00.00 ; Generalized anxiety disorder F41.1 ; Vitamin D deficiency E55.9 ; Dyslipidemia E78.5 ; RAMSES (obstructive sleep apnea) G47.33 ; Seasonal allergies J30.2 and BMI 31.0-31.9,adult Z68.31 [facility] [address] [place], [place] [id number] 03/27/2025 Arabella Watkins Constipation K59.00 and BMI 30.0-30.9,adult Z68.30 [facility] [address] [place], [place] [id number] 03/17/2025 Valentin [place] [facility] [address] [place], [place] [id number] 03/17/2025 Valentin [place] [facility] [address] [place], [place] [id number] 04/07/2025 Valentin [place] Assessments Encounter Date Diagnosis (ICD Code) Assessment Notes Treatment Notes Treatment Clinical Notes Section Notes 03/27/2025 Constipation (ICD-10 - K59.00) Continue MiraLAX daily 03/27/2025 BMI 30.0-30.9,adult (ICD-10 - Z68.30) 01/30/2025 Generalized anxiety disorder (ICD-10 - F41.1) 01/30/2025 Adult general medical examination (ICD-10 - Z00.00) Patient instructed to return to office Annually for Annual Wellness Visits to include annual screenings of Pain assessment, Functional Ability assessment, Cognitive Ability assessment, Fall Risk assessment, Depression screening and Bladder control screening. 08/01/2024 Vitamin D deficiency (ICD-10 - E55.9) 08/01/2024 Generalized anxiety disorder (ICD-10 - F41.1) 08/01/2024 Dyslipidemia (ICD-10 - E78.5) Reinforced diet [...] [address], [place], [place], [id number], Insurance Providers Payer Name Payer Address Payer Phone Subscriber Number Group Number Insured Name Patient Relationship to Insured Coverage Start Date Coverage End Date MEDICARE PART B [address] [address] Darleen[place]ikhail [place] [address] [id number] FIDELINA BARCLAY Self - patient is the insured [facility] [facility] [address] [place] [id number] FIDELINA BARCLAY Self - patient is the insured Medications Administered Medication Instructions Date of Administration Dosage Notes Dexamethasone 12/29/2012 1 mL Dexamethasone 12/04/2015 1 mL Dexamethasone 09/27/2016 1 mL Medical (General) History Medical History History ICD Code hyperlipidemia psoriasis Sleep apnea Seasonal allergies Colon polyps Overactive bladder Tremor Mild cognitive deficit Surgical History Surgery Date(Month/Year) C-scope - Dr. Pepe 2003,2008,2015, 20 18 Hospitalization History Reason Date(Month/Year) [facility] 09/28/17 [facility] ER-vertigo 6.9.17
--- OUTSIDE RECORDS SUMMARY | 2025-07-28 07:02 | XMS_ITS | Encounter Summary ---
Author Organization Healthcare Address [address] [place] [address] Care Team Providers Care Radiology Clerk Name Role Phone Niko Livingston Primary Care Provider Sandra Comer MD Unavailable Reason for Visit * Reason Comments Med Refill Encounter Details Date Type Department Care Team (Late st Contact Info) Description 07/01/2025 Refill [place] [facility] [address], [address] [place] [address] Latricia Ryan, TAMEKA [address] [place] [address] Social History Tobacco Use Types [...] encounter Miscellaneous Notes * Telephone Encounter - Anahi Webb - 07/01/2025 1:39 PM EDT 1 medication(s) has been approved per protocol. documented in this encounter Plan of Treatment Upcoming Encounters Date Type Department Care Team (Late st Contact Info) Description 08/05/2025 9:00 AM EDT [facility] [place] [facility] [address] [place] [address] Yasmeen Roque, PA [address] [place] [address] 10/02/2025 2:10 PM EST Office Visit [place] [facility] [address], [address] [place] [address] Latricia Ryan PA [address] [facility] [address] [place] [address] documented as of this encounter Visit Diagnoses Not on filedocumented in this encounter Additional Health Concerns Assessment Noted Time A fall risk assessment has been complete d for the patient 05/29/2025 12:07 PM EDT A Body Mass Index follow-up plan has been documented for the patient 05/29/2025 12:57 PM EDT documented as of this encounter Care Teams Radiology Clerk Relationship Specialty Start Date End Date Niko Livingston PCP - General 02/11/22 Sandra Mason MD [address] [facility] [address] [place] [address] Consulting Physician Neurology 02/11/22 documented as of this encounter
--- OUTSIDE RECORDS SUMMARY | 2025-07-28 07:02 | XMS_ITS | Encounter Summary ---
Author Organization [facility] Address [address] [place] [address] Care Team Providers Care Vertical Contour Band Saw Operator Name Role Phone Niko Livingston Primary Care Provider Sandra Comer MD Unavailable [phone] Reason for Visit * Reason Comments Med Refill Encounter Details Date Type Department Care Team (Late st Contact Info) Description 09/15/2023 Refill [place] [facility] [address], [address] [place] [address] Latricia Ryan PA [address] [place] [address] Social History Tobacco Use Types [...] Description 08/05/2025 9:00 AM EDT [facility] [place] [facility] [address] [place] [address] Yasmeen Roque, PA [address] [place] [address] 10/02/2025 2:10 PM EST [facility] [address], [address] [place] [address] Latricia Ryan PA [address] [facility] [address] [place] [address] documented as of this encounter Visit Diagnoses Not on filedocumented in this encounter Additional Health Concerns Assessment Noted Time A fall risk assessment has been complete d for the patient 06/29/2023 2:17 PM EDT A Body Mass Index follow-up plan has been documented for the patient 06/29/2023 2:43 PM EDT documented as of this encounter Care Teams Vertical Contour Band Saw Operator Relationship Specialty Start Date End Date Niko Livingston PCP - General 02/11/22 Sandra Mason MD [address] [facility] [address] [place] [address] Consulting Physician Neurology 02/11/22 documented as of this encounter
--- OUTSIDE RECORDS SUMMARY | 2025-07-28 07:02 | XMS_ITS | Encounter Summary ---
Author Organization [facility] Address [address] [place] [address] Care Team Providers Care Big Data Analytics Lead Name Role Phone Niko Livingston Primary Care Provider Sandra Comer MD Unavailable [phone] Encounter Details Date Type Department Care Team (Latest Contact Info) Description 06/26/2025 Travel Social History Tobacco Use Types Packs/Day [...] AM EDT Office Visit [facility] [place] - [facility] [address] [place] [address] Yasmeen Roque PA [address] [place] [address] 10/02/2025 2:10 PM EST Office Visit [place] [facility] [address], [address] [place] [address] Latricia Ryan PA [address] [place] [address] documented as of this encounter Visit Diagnoses Not on filedocumented in this encounter Additional Health Concerns Assessment Noted Time A fall risk assessment has been complete d for the patient 05/29/2025 12:07 PM EDT A Body Mass Index follow-up plan has been documented for the patient 05/29/2025 12:57 PM EDT documented as of this encounter Care Teams Big Data Analytics Lead Relationship Specialty Start Date End Date Niko Livingston PCP - General 02/11/22 Sandra Mason MD [address] [facility] [address] [place] [address] Consulting Physician Neurology 02/11/22 documented as of this encounter
--- OUTSIDE RECORDS SUMMARY | 2025-07-28 07:02 | XMS_ITS | Encounter Summary ---
Author Organization [facility] Address [address] [place] [address] Care Team Providers Care Freedom Of Information Officer Name Role Phone Niko Livingston Primary Care Provider Sandra Comer MD Unavailable Reason for Visit * Reason Comments Med Refill Encounter Details Date Type Department Care Team (Late st Contact Info) Description 07/29/2023 Refill [place] [facility] [address], [address] [place] [address] Latricia Ryan PA [address] [place] [address] Social History Tobacco Use Types [...] Description 08/05/2025 9:00 AM EDT [facility] [place] [facility] [address] [place] [address] Yasmeen Roque, PA [address] [place] [address] 10/02/2025 2:10 PM EST Office Visit [place] [facility] [address], [address] [place] [address] Latricia Ryan PA [address] [facility] [address] [place] [address] documented as of this encounter Visit Diagnoses Not on filedocumented in this encounter Additional Health Concerns Assessment Noted Time A fall risk assessment has been complete d for the patient 06/29/2023 2:17 PM EDT A Body Mass Index follow-up plan has been documented for the patient 06/29/2023 2:43 PM EDT documented as of this encounter Care Teams Freedom Of Information Officer Relationship Specialty Start Date End Date Niko [place] PCP - General 02/11/22 Sandra Mason MD [address] [facility] [address] [place] [address] Consulting Physician Neurology 02/11/22 documented as of this encounter
--- OUTSIDE RECORDS SUMMARY | 2025-07-28 07:02 | XMS_ITS | Encounter Summary ---
Author Organization Healthcare Address [address] [place] [address] Care Team Providers Care Rubber Covering Machine Operator Name Role Phone Niko Livingston Primary Care Provider Sandra Comer MD Unavailable [phone] Encounter Details Date Type Department Care Team (Late Contact Info) Description 04/15/2025 Orders Only External Location [address] [place] [address] Provider, External Social History Tobacco Use Types Packs/Day Years [...] Encounters Date Type Department Care Team (Late Contact Info) Description 08/05/2025 9:00 AM EDT Office Visit [facility] [place] - Memory [address] [place] [address] Yasmeen Roque, PA [address] [place] [address] 10/02/2025 2:10 PM EST Office Visit [place] [facility] [address], [address] [place] [address] Latricia Ryan PA [address] [place] [address] documented as of this encounter Procedures Procedure Name Priority Date/Time Associated Diagnosis Comments MR NEURO OUTSIDE IMAGES 04/15/2025 1:36 PM EDT documented in this encounter Results * MR NEURO OUTSIDE IMAGES (04/15/2025 1:36 PM EDT) Anatomical Region Laterality Modality Magnetic Resonan ce 04/15/2025 1:36 PM EDT us External Provider IMG MRI PROCEDURES Final Resul t documented in this encounter Visit Diagnoses Not on filedocumented in this encounter Additional Health Concerns Assessment Noted Time A fall risk assessment has been complete d for the patient 04/02/2025 2:08 PM EDT A Body Mass Index follow-up plan has been documented for the patient 04/02/2025 2:56 PM EDT documented as of this encounter Care Teams Rubber Covering Machine Operator Relationship Specialty Start Date End Date Niko Livingston PCP - General 02/11/22 Sandra Mason MD [address] [place] [address] Consulting Physician Neurology 02/11/22 documented as of this encounter
--- OUTSIDE RECORDS SUMMARY | 2025-07-28 07:03 | XMS_ITS | Encounter Summary ---
Author Organization Healthcare Address [address] [place] [address] Care Team Providers Care Deli Slicer Name Role Phone Niko Livingston Primary Care Provider Sandra Comer MD Unavailable Encounter Details Date Type Department Care Team (Late st Contact Info) Description 05/30/2025 Orders Only [facility] Nuclear Medicine [address] [place] [address] India Gudino MD [address] [place] [address] Social History Tobacco Use Types Packs/Day Years [...] 08/05/2025 9:00 AM EDT Office Visit [facility] [place] - Memory [address] [place] [address] Yasmeen Roque, PA [address] [place] [address] 10/02/2025 2:10 PM EST Office Visit [place] [facility] [address], [address] [place] [address] Latricia Ryan, TAMEKA [address] [place] [address] documented as of this encounter Visit Diagnoses Not on filedocumented in this encounter Additional Health Concerns Assessment Noted Time A fall risk assessment has been complete d for the patient 05/29/2025 12:07 PM EDT A Body Mass Index follow-up plan has been documented for the patient 05/29/2025 12:57 PM EDT documented as of this encounter Care Teams Deli Slicer Relationship Specialty Start Date End Date Niko Livingston PCP - General 02/11/22 Sandra Mason MD [address] [facility] [address] [place] [address] Consulting Physician Neurology 02/11/22 documented as of this encounter
--- OUTSIDE RECORDS SUMMARY | 2025-07-28 07:03 | XMS_ITS | Encounter Summary ---
Author Organization [facility] Address [address] [place] [address] Care Team Providers Care Service Specialist Name Role Phone Yara Niko Primary Care Provider Sandra Comer MD Unavailable Reason for Visit * Reason Comments Med Refill Encounter Details Date Type Department Care Team (Late st Contact Info) Description 06/10/2025 Telephone [place] [facility] [address], [address] [place] [address] Latricia Ryan, PA [address] [place] [address] Med Refill Social History Tobacco Use Types Packs/Day Years [...] encounter Miscellaneous Notes * Telephone Encounter - Harriett Katz Hardy - 06/10/2025 1:27 PM EDT Patient Phone Message Reason for Call: Patient daughter calling to [facility] follow up with provider only asking for 1st or 3rd week in Oct in afternoon Best contact number and optimal time of day to reach caller: [phone] Note: Please do not reply to this [...] Description 08/05/2025 9:00 AM EDT Office Visit [facility] [place] - Memory [address] [place] [address] Yasmeen Rqoue, PA [address] [place] [address] 10/02/2025 2:10 PM EST Office Visit [place] [facility] [address], [address] [place] [address] Latricia Ryan PA [address] [place] [address] documented as of this encounter Visit Diagnoses Not on filedocumented in this encounter Additional Health Concerns Assessment Noted Time A fall risk assessment has been complete d for the patient 05/29/2025 12:07 PM EDT A Body Mass Index follow-up plan has been documented for the patient 05/29/2025 12:57 PM EDT documented as of this encounter Care Teams Service Specialist Relationship Specialty Start Date End Date Niko Livingston PCP - General 02/11/22 Sandra Mason MD [address] [place] [address] Consulting Physician Neurology 02/11/22 documented as of this encounter
--- OUTSIDE RECORDS SUMMARY | 2025-07-28 07:03 | XMS_ITS | Encounter Summary ---
Author Organization Healthcare Address [address] [place] [address] Care Team Providers Care Telegraphic Service Dispatcher Name Role Phone Niko Livingston Primary Care Provider Sandra Comer MD Unavailable Reason for Visit * Reason Onset Date Comments Med Refill 06/10/2025 Encounter Details Date Type Department Care Team (Late st Contact Info) Description 06/10/2025 Refill [place] [facility] [address], [address] [place] [address] Latricia Ryan PA [address] [place] [address] Social History Tobacco Use Types [...] 08/05/2025 9:00 AM EDT Office Visit [facility] [place] - [facility] [address] [place] [address] Yasmeen Roque PA [address] [place] [address] 10/02/2025 2:10 PM EST Office Visit [place] [facility] [address], [address] [place] [address] Latricia Ryan, PA [address] [facility] [place] [address] documented as of this encounter Visit Diagnoses Not on filedocumented in this encounter Additional Health Concerns Assessment Noted Time A fall risk assessment has been complete d for the patient 05/29/2025 12:07 PM EDT A Body Mass Index follow-up plan has been documented for the patient 05/29/2025 12:57 PM EDT documented as of this encounter Care Teams Telegraphic Service Dispatcher Relationship Specialty Start Date End Date Niko Livingston PCP - General 02/11/22 Sandra Mason MD [address] [facility] [place] [address] Consulting Physician Neurology 02/11/22 documented as of this encounter
--- OUTSIDE RECORDS SUMMARY | 2025-07-28 07:03 | XMS_ITS | Encounter Summary ---
Author Organization Healthcare Address [address] [place] [address] Care Team Providers Care Calculating Machine Operator Name Role Phone Niko Livingston Primary Care Provider Sandra Comer MD Unavailable Reason for Visit * Reason Onset Date Comments HCN - Patient Message 06/04/2025 Encounter Details Date Type Department Care Team (Late st Contact Info) Description 06/04/2025 Telephone [facility] [place] - Memory [address] [place] [address] Cb Hatch MD [address] [facility] [address] [place] [address] HCN - Patient Message Social History Tobacco Use Types Packs/Day Years [...] encounter Miscellaneous Notes * Telephone Encounter - Rosio Oliveira - 06/04/2025 3:33 PM EDT Patient Phone Message Reason for Call: Needs to schedule follow up after testing, w/ Dr Hatch himself, not PA DUNG 06/26 PET 07/16 Best contact number and optimal time of day to reach caller: Trevor [phone] Note: Please do not reply to this [...] Description 08/05/2025 9:00 AM EDT Office Visit [facility] [place] - Memory [address] [place] [address] Yasmeen Roque PA [address] [place] [address] 10/02/2025 2:10 PM EST Office Visit [place] [facility] [address], [address] [place] [address] Latricia Ryan PA [address] [address] documented as of this encounter Visit Diagnoses Not on filedocumented in this encounter Additional Health Concerns Assessment Noted Time A fall risk assessment has been complete d for the patient 05/29/2025 12:07 PM EDT A Body Mass Index follow-up plan has been documented for the patient 05/29/2025 12:57 PM EDT documented as of this encounter Care Teams Calculating Machine Operator Relationship Specialty Start Date End Date Niko Livingston PCP - General 02/11/22 Sandra Mason MD [address] [address] Consulting Physician Neurology 02/11/22 documented as of this encounter
--- OUTSIDE RECORDS SUMMARY | 2025-07-28 07:03 | XMS_ITS | Encounter Summary ---
Author Organization Healthcare Address [address] [place] [address] Care Team Providers Care Utilization Specialist Name Role Phone Niko Livingston Primary Care Provider Sandra Comer MD Unavailable [phone] Encounter Details Date Type Department Care Team (Late st Contact Info) Description 06/03/2025 Orders Only Ch Radiology Virtual Dept. [address] [place] [address] Madiha Petersen S, DO [address] [place] [address] Social History Tobacco Use Types Packs/Day Years [...] 08/05/2025 9:00 AM EDT Office Visit [facility] [place] - [facility] [address] [place] [address] Yasmeen Roque, PA [address] [place] [address] 10/02/2025 2:10 PM EST Office Visit [facility] [address] [place] [address] Latricia Ryan PA [address] [place] [address] documented as of this encounter Visit Diagnoses Not on filedocumented in this encounter Additional Health Concerns Assessment Noted Time A fall risk assessment has been complete d for the patient 05/29/2025 12:07 PM EDT A Body Mass Index follow-up plan has been documented for the patient 05/29/2025 12:57 PM EDT documented as of this encounter Care Teams Utilization Specialist Relationship Specialty Start Date End Date Niko Livingston PCP - General 02/11/22 Sandra Mason MD [address] [place] [address] Consulting Physician Neurology 02/11/22 documented as of this encounter
--- OUTSIDE RECORDS SUMMARY | 2025-07-28 07:03 | XMS_ITS | Encounter Summary ---
Author Organization [facility] Address [address] [place] [address] Care Team Providers Care Automotive Brake Technician Name Role Phone Niko Livingston Primary Care Provider Sandra Comer MD Unavailable [phone] Encounter Details Date Type Department Care Team (Latest Contact Info) Description 05/29/2025 Travel Social History Tobacco Use Types Packs/Day [...] 08/05/2025 9:00 AM EDT Office Visit [facility] [place] [facility] [address] [place] [address] Yasmeen Roque PA [address] [place] [address] 10/02/2025 2:10 PM EST Office Visit [place] [facility] [address] [place] [address] Latricia Ryan PA [address] [place] [address] documented as of this encounter Visit Diagnoses Not on filedocumented in this encounter Additional Health Concerns Assessment Noted Time A fall risk assessment has been complete d for the patient 05/29/2025 12:07 PM EDT A Body Mass Index follow-up plan has been documented for the patient 05/29/2025 12:57 PM EDT documented as of this encounter Care Teams Automotive Brake Technician Relationship Specialty Start Date End Date Niko Livingston PCP - General 02/11/22 Sandra Mason MD [address] [facility] [address] [place] [id number] Consulting Physician Neurology 02/11/22 documented as of this encounter
[2025-07-28 08:13] LABS: Albumin Level 3.8 g/dl (3.5-5.0); Chloride 103 mmol/L (98-107); Potassium 4.0 mmoL/L (3.5-5.1); Sodium 140 mmol/L (136-145)
[2025-07-28 08:15] LABS: Blood Urea Nitrogen 10 mg/dl (9-20); Creatinine,Serum 1.00 mg/dl (0.66-1.25); Estimated Glomerular Filt Rate 73 ml/min (>60); GFR (African American) 88 ML/MIN (>60)
[2025-07-28 08:16] LABS: Alanine Aminotransferase 25 U/L (12-78); Albumin/Globulin Ratio 1.5 (1.1-1.8); Alkaline Phosphatase 75 U/L (38-126); Anion Gap 9.0 mEq/L (5-15); Aspartate Amino Transferase 30 U/L (17-59); Bilirubin,Total 0.8 mg/dl (0.2-1.3); Calcium 8.7 mg/dl (8.4-10.2); Carbon Dioxide 32 mmol/L (22.0-30.0); Cholesterol 197 mg/dl (140-200); Globulin 2.5 g/dL (1.3-3.2); Glucose 75 mg/dl (74-100); HDL Cholesterol 47 mg/dl (40-60); Total Protein,Serum 6.3 g/dl (6.3-8.2); Triglycerides 155 mg/dl (30-150)
[2025-07-28 09:04] LABS: 25-OH Vitamin D, Total 29.6 ng/mL (30-100)
== END 2025-07-28 23:59 | disposition home or self-care (01) ==
LOC: LAB 07:00
PROVIDERS: PCP Family Medicine; Visit Provider Family Medicine
DX: E78.5 Hyperlipidemia, unspecified (principal); E55.9 Vitamin D deficiency, unspecified; Z12.5 Encounter for screening for malignant neoplasm of prostate
CPT/HCPCS: 36415; 80053; 80061; 82306; G0103

== ENCOUNTER 2025-08-20 16:08 | Outpatient (CLI) | payer MEDICARE, SELFPAY ==
--- OUTSIDE RECORDS SUMMARY | 2024-08-01 04:30 | XMS_ITS ---
Author Organization [facility] Address [address] [place] [id number] Care Team Providers Care Spinning Machine Tender Name Role Phone Woodward Valentin Primary Care Provider Arabella Watkins [phone] Allergies Allergen (clinical drug ingredient) Drug/Non Drug Allergy documented on EMR Reaction Allergy Type Onset Date Status citalopram CeleXA nausea Drug Allergy Active REASON FOR VISIT 6 month follow up, Needs flu vaccine Medications Medication SIG (Take, Route, Frequency, Duration) Notes Start Date End Date Status Myrbetriq 25 MG 1 tab(s) orally once a day Not-Taking Niacin 500 MG 2 tab(s) orally daily Active Arnuity Ellipta 100 MCG/ACT 1 puff(s) inhaled every 24 hours Active Montelukast Sodium 10 MG 1 tab(s) orally once a day Active CareTouch CPAP & BIPAP Hose DIRECTED Active Loratadine 10 MG 1 tab(s) orally once a day Active Pregabalin 50 MG 1 capsule Orally Three times a day Active Pravastatin Sodium 40 MG 1 tab(s) orally once a day (at bedtime) Active FLUoxetine HCl 20 MG 1 tab(s) Orally once a day Active Vitamin D3 125 MCG (5000 UT) 1 tab(s) orally once a day Active Donepezil HCl 10 MG 1 tablet at bedtime Orally Once a day; Duration: 30 day(s) Active Aspirin 81 81MG 1 TAB(S) ONCE A DAY *Please review and pick correct strength-formulati on from Medispan options. If intended option is not shown, discontinue and re-order from Quick Search* Not-Taking Medrol 4 MG as directed 08/26/2022 Not-T aking Immunizations Vaccine Route Administration Date Status Comme nts Fluzone High Dose (65yr and older) IM Intramuscular 08/01/2024 Administered Vital Signs Weight 237 lbs 08/01/2024 Blood pressure systolic 122 mm Hg 08/01/20 24 Blood pressure diastolic 70 mm Hg 024 Heart Rate 59 /min 08/01/2024 Height 75 in 08/01/2024 BMI 29.62 kg/m2 08/01/2024 Encounters Encounter Location Date Provider Diagnosis [facility] [address] [place], [place] [id number] 08/01/2024 Arabella Watkins Generalized anxiety disorder F41.1 ; Vitamin D deficiency E55.9 ; Dyslipidemia E78.5 ; RAMSES (obstructive sleep apnea) G47.33 ; Seasonal allergies J30.2 ; Encounter for immunization Z23 and BMI 29.0-29.9,adult Z68.29 Assessments Encounter Date Diagnosis (ICD Code) Assessment Notes Treatment Notes Treatment Clinical Notes Section Notes 08/01/2024 Generalized anxiety disorder (ICD-10 - F41.1) 08/01/2024 Vitamin D deficiency (ICD-10 - E55.9) 08/01/2024 Dyslipidemia (ICD-10 - E78.5) Reinforced diet and weight loss 08/01/2024 RAMSES (obstructive sleep apnea) (ICD-10 - G47.33) 08/01/2024 Seasonal allergies (ICD-10 - J30.2) 08/01/2024 Encounter for immunization (ICD-10 - Z23) 08/01/2024 BMI 29.0-29.9,adult (ICD-10 - Z68.29) Cautioned on weight. Reinforced diet and exercise Plan Of Treatment Medication Medication Name Sig Start Date Stop Date Notes Pravastatin Sodium 40 MG 1 tab(s) orally once a day (at bedtime) FLUoxetine HCl 20 MG 1 tab(s) Orally once a day Vitamin D3 125 MCG (5000 UT) 1 tab(s) orally once a day Treatment Notes Assessment Notes Dyslipidemia Reinforced diet and weight loss BMI 29.0-29.9,adult Cautioned on weight. Reinforced diet and exercise Next Appt Details Follow Up: 6 Months, Reason: Provider Name:Loly mahan, 08/20/2025 03:30:00 PM, [address], [address], [place], [id number], Provider Name:Arabella Ferreira, 01/29/2026 09:30:00 AM, [address], [address], [place], [id number], Progress Notes * FIDELINA BARCLAYDOB:[birth year] (75 yo M)Acc No.[id number]:08/01/2024 Patient: FIDELINA CRUZ Provider: Arabella Watkins M.D. :1950 A ge:74 Y S ex:Male Date:08/01/2024 Address:[address] [place] [address], [facility] [id number] Pcp:Valentin Barr Subjective: * Chief Complaints: * 1 . 6 month follow up. 2. Needs flu vaccine. * HPI: E ndocrinology: Maintenance P t presents today for a 6 month check up. Pt had labs drawn on Monday. Pt would like to get his flu shot today. Pt sts that he has no new concerns or complaints at this time. * ROS: D ERMATOLOGY: no R barrera. n o H malick. G ASTROENTEROLOGY: no N ausea. n o V omiting. n o D iarrhea.? U ROLOGY: no D ifficulty urinating. n o B lood in urine. * Medical History: H yperlipidemia, Psoriasis, Sleep apnea, Seasonal allergies, Colon polyps, Overactive bladder, Tremor, Mild cognitive deficit. * Surgical History: C -scope - Dr. Pepe 2003,2008,2014, 2018. * Hospitalization/Major Diagno stic Procedure: H ER-vertigo 6.07.02, Clinic-cough 09/28/17. * Family History: F ather: , [place], diabetes. M other: , cancer. 1 brother(s) [...] CPAP & BIPAP Hose DIRECTED , Taking Vitamin D3 125 MCG (5000 UT) Capsule 1 tab(s) orally once a day , Taking Pravastatin Sodium 40 MG Tablet 1 tab(s) orally once a day (at bedtime) , Taking Montelukast Sodium 10 MG Tablet 1 tab(s) orally once a day , Taking FLUoxetine HCl 20 MG Tablet 1 tab(s) Orally once a day , Not-Taking Myrbetriq 25 MG Tablet Extended Release 24 Hour 1 tab(s) orally once a day , Not-Taking Aspirin 81 81MG 1 TAB(S) ONCE A DAY , Notes to Pharmacist: *Please review and pick correct strength-formulation from Medispan options. If intended option is not shown, discontinue and re-order from Quick Search*, Not-Taking Medrol 4 MG Tablet Therapy Pack as directed , Medication List reviewed and reconciled with the patient * Allergies: C eleXA: nausea - Side Effects. Objective: * Vitals: W t:237, Temp:97.4, BP:122/70, HR:59, Nurse:JULIANN, Ht: 75, BMI:29.62. * Examination: G eneral Examination: General Appearance: N AD. Weight g ain noted. H EENT: sclera and conjunctiva clear, PERRLA, TM's normal, translucent. O ral cavity: n o lesions, mucosa moist and WNL, no erythema. N vania: s upple, no lymphadenopathy. H eart: RSR. L ungs: c lear to auscultation. E xtremities: n o leg edema. ? * Physical Examination: L ABS: See labs r denisewed with patient, Lipids not at goal. Assessment: * Assessment: 1. G eneralized anxiety disorder - F41.1 (Primary) 2 . V itamin D deficiency - E55.9 3 . D yslipidemia - E78.5 4 . O SA (obstructive sleep apnea) - G47.33 5 . S easonal allergies - J30.2 6 . E ncounter for immunization - Z23 7 . B [place] 29.0-29.9,adult - Z68.29 Plan: * Treatment: 2. V itamin D deficiency Continue Vitamin D3 Capsule, 125 MCG (5000 UT), 1 tab(s), orally, once a day. 3. D yslipidemia Refill Pravastatin Sodium Tablet, 40 MG, 1 tab(s), orally, once a day (at bedtime), 90, Refills 1.? Notes: Reinforced diet and weight loss 4. B [place] 29.0-29.9,adult Notes: Cautioned on weight. Reinforced diet and exercise * Immunizations: Fluzone High Dose (65yr and older) : 0.5 mL (Route: Intramuscular) given by Haydee Aguirre on Right Deltoid (Encounter for immunization) * Follow Up: 6 Months * Images: Billing Information: * Visit Code: 82859 Office Visit, Est Pt., Level 4. * Procedure Codes: * Electronic signature of Arabella Watkins MD on 08/20/2025 at 04:12 PM EST Sign off status: Pending * Provider: Arabella Watkins M.D. Date: Generated for Ines jeff/Cheko/eTransmitting on: 10/20/2024 04:12 PM EST History and Physical Notes * HPI (History of Present Illness) Category Sub-Category Detail Notes Category Not es Endocrinology Maintenance Pt presents toda y for a 6 month check up. Pt had labs drawn on Monday. Pt would like to get his flu shot today. Pt sts that he has no new concerns or complaints at this time Physical Examination Category Sub-Category Detail Notes Section Note s LABS See labs reviewed with patient, Lipid s not at goal Examination Category Sub-Category Detail Notes Category Not [...]
--- OUTSIDE RECORDS SUMMARY | 2025-01-30 04:45 | XMS_ITS ---
Author Organization [facility] Address [address] [facility] [address] [place] [id number] Care Team Providers Care Cofferdam Construction Supervisor Name Role Phone Valentin Barr Primary Care Provider Arabella Watkins [phone] Allergies Allergen (clinical drug ingredient) Drug/Non Drug Allergy documented on EMR Reaction Allergy Type Onset Date Status citalopram CeleXA nausea Drug Allergy Active REASON FOR VISIT 6 month check and AWV Medications Medication SIG (Take, Route, Frequency, Duration) Notes Start Date End Date Status Pregabalin 50 MG 1 capsule Orally Three times a day Active Loratadine 10 MG 1 tab(s) orally once a day Active Arnuity Ellipta 100 MCG/ACT 1 puff(s) inhaled every 24 hours Active Niacin 500 MG 2 tab(s) orally daily Active CareTouch CPAP & BIPAP Hose DIRECTED Active Vitamin D3 125 MCG (5000 UT) 1 tab(s) orally once a day Active Donepezil HCl 10 MG 1 tablet at bedtime Orally Once a day; Duration: 30 day(s) Active methylPREDNISolone 4 MG as directed Orally 01/30/2025 Active FLUoxetine HCl 20 MG 1 tab(s) Orally once a day Active Pravastatin Sodium 40 MG 1 tab(s) orally once a day (at bedtime) Active Aspirin 81 81MG 1 TAB(S) ONCE A DAY *Please review and pick correct strength-formula tion from [employer] options. If intended option is not shown, discontinue and re-order from Quick Search* Not-Taking Medrol 4 MG as directed 08/26/2022 Not-T aking Myrbetriq 25 MG 1 tab(s) orally once a day Not-Taking Montelukast Sodium 10 MG 1 tab(s) orally once a day Active Problems Problem Type SNOMED Code ICD Code Onset Dates Problem Status W/U Status Risk Notes Problem Body mass index 30.00 to 34.99 (187754249557 107) BMI 31.0-31.9,a dult (Z68.31) Active confirmed Vital Signs Weight 251.2 lbs 01/30/2025 Blood pressure systolic 130 mm Hg 01/31/20 25 Blood pressure diastolic 78 mm Hg 025 Heart Rate 67 /min 01/30/2025 Height 75 in 01/30/2025 BMI 31.39 kg/m2 01/30/2025 Encounters Encounter Location Date Provider Diagnosis [facility] [address] [facility] [address] [place] [address], [place] [id number] 01/30/2025 Arabella Watkins Adult general medica l examination Z00.00 ; Generalized anxiety disorder F41.1 ; Vitamin D deficiency E55.9 ; Dyslipidemia E78.5 ; RAMSES (obstructive sleep apnea) G47.33 ; Seasonal allergies J30.2 and BMI 31.0-31.9,adult Z68.31 Assessments Encounter Date Diagnosis (ICD Code) Assessment Notes Treatment Notes Treatment Clinical Notes Section Notes 01/30/2025 Adult general medical examination (ICD-10 - Z00.00) Patient instructed to return to office Annually for Annual Wellness Visits to include annual screenings of Pain assessment, Functional Ability assessment, Cognitive Ability assessment, Fall Risk assessment, Depression screening and Bladder control screening. 01/30/2025 Generalized anxiety disorder (ICD-10 - F41.1) 01/30/2025 Vitamin D deficiency (ICD-10 - E55.9) 01/30/2025 Dyslipidemia (ICD-10 - E78.5) Reinforced diet and weight loss 01/30/2025 RAMSES (obstructive sleep apnea) (ICD-10 - G47.33) 01/30/2025 Seasonal allergies (ICD-10 - J30.2) 01/30/2025 BMI 31.0-31.9,adult (ICD-10 - Z68.31) Plan Of Treatment Medication Medication Name Sig Start Date Stop Date Notes Vitamin D3 125 MCG (5000 UT) 1 tab(s) orally once a day methylPREDNISolone 4 MG as directed Orally 01/30/2025 FLUoxetine HCl 20 MG 1 tab(s) Orally once a day Pravastatin Sodium 40 MG 1 tab(s) orally once a day (at bedtime) Treatment Notes Assessment Notes Adult general medical [...] Name:Loly mahan, 08/20/2025 03:30:00 PM, [address], [address], [place], [id number], Provider Name:Arabella Ferreira, 01/29/2026 09:30:00 AM, [address], [address], [place], [place], [id number], Progress Notes * ISHMAEL BARCLAYB:[birth year] (75 yo M)Acc No.[id number]:01/30/2025 Annual Wellness Visit Patient: FIDELINA CRUZ Provider: Arabella Watkins M.D. :1950 A ge:74 Y S ex:Male Date:01/30/2025 Address:[address] [place] [address] [id number] Pcp:Valentin Barr Subjective: * Chief Complaints: * 1 . 6 month check and AWV. * HPI: H PI: Patient is here today for a scheduled 6 month check up?and a Medicare Annual Wellness Visit. See lab results drawn 01/27/2025 in patient chart. . E NT/respiratory: Pt sts he has had a cough and hoarseness for 3 weeks and sts he has taken Dayquil for 1-2 weeks and sts it has not helped. Denies : sore throat. D enies : Fever. C onstitutional: He has gained weight since his last office visit which he attributes to lack of exercise during the winter months. * ROS: O PTHALMOLOGY: Negative for d enies vision issues. * Medical History: H yperlipidemia, Psoriasis, Sleep apnea, Seasonal allergies, Colon polyps, Overactive bladder, Tremor, Mild cognitive deficit. * Surgical History: C -scope - Dr. Pepe 2003,2008,2014, 2018. * Hospitalization/Major Diagno stic Procedure: H ER-vertigo 6.9.17, Clinic-cough 09/28/17. * Family History: F ather: , [place], diabetes. M other: , cancer. 1 brother(s) [...] - Side Effects. Objective: * Vitals: W t: 251.2, Temp: 97.9, BP: 130/78, HR: 67, Nurse: rui, Ht: 75, BMI:31.39. * Examination: G eneral Examination: General Appearance: N AD. Weight g ain noted. H EENT: s clera and conjunctiva clear, PERRLA, TM's normal, translucent. O ral cavity: V oice is hoarse. Postnasal drainage noted.. N vania: s upple, no lymphadenopathy. H eart: R SR. L ungs: c lear to auscultation. E xtremities: n o leg edema. ? * Physical Examination: G ENERAL: Pain Assessment: P ain level: 1, on a scale of 0-10 (with 10 being extreme pain). F unctional Status Assessment: P atient response to question of how often physical health interferes with daily activities: . Almost never Able to perform ADLs-including meal preparation, grocery [...] health as: calm. B ladder Control Screening: D enies problems. Assessment: * Assessment: 1. A dult general medical examination - Z00.00 (Primary) 2 . G eneralized anxiety disorder - F41.1 3 . V itamin D deficiency - E55.9 4 .?Dyslipidemia - E78.5 5 . O SA (obstructive sleep apnea) - G47.33 6. S easonal allergies - J30.2 7 . B [place] 31.0-31.9,adult - Z68.31 ? Plan: * Treatment: 2. G eneralized anxiety [...] Notes: Reinforced diet and weight loss 5. S easonal allergies Start methylPREDNISolone Tablet Therapy Pack, 4 MG, as directed, Orally, 1. * Procedure Codes: G 0439 ANNUAL WELLNESS VST; PPS SUBSQT VST, G2211 Complex e/m visit add on, G0444 ANNUAL DEPRESSION SCREENING 15 MIN, 1090F PRES/ABSN URINE INCON ASSESS, 3288F FALL RISK ASSESSMENT DOCD, 1170F FXNL STATUS ASSESSED, 1126F AMNT PAIN NOTED NONE PRSNT, 1159F MED LIST DOCD IN RCRD, 1003F LEVEL OF ACTIVITY ASSESS, 1036F TOBACCO NON- USER, 3017F COLORECTAL CA SCREEN DOC REV, G8510 NEG SCR Depression PT NOT ELIG F/U/PLN DOC, 3075F SYST BP GE 130 - 139MM HG, 3078F DIAST BP < 80 MM HG * Preventive Medicine: Counseling: E motional health: D iscussed ways to improve socialization. B ladder control: M ethods of controlling or managing leakage of urine discussed. E xercise: Patient advised to start, increase or maintain level of exercise/physical activity. I njury prevention: F all prevention discussed. Discussed need for cane/walker. Potential trip hazards discussed. Immunizations: P neumococcal r ecommended. I nfluenza u p to date. Screening / Special Tests: C olonoscopy R ecent history: 09/06/2021, polyps, hemorrhoids, repeat 3-5 years. P SA 1 , normal. * Follow Up: 6 Months * Images: Billing Information: * Visit Code: 88497 Office Visit, Est Pt., Level 3. Modifiers: 25 * Procedure Codes: G0439 ANNUAL WELLNESS VST; PPS SUBSQT VST. G2211 Complex e/m visit add on. G0444 ANNUAL DEPRESSION SCREENING 15 MIN. 1090F PRES/ABSN URINE INCON ASSESS. 3288F FALL RISK ASSESSMENT DOCD. 1170F FXNL STATUS ASSESSED. 1126F AMNT PAIN NOTED NONE PRSNT. 1159F MED LIST DOCD IN RCRD. 1003F LEVEL OF ACTIVITY ASSESS. 1036F TOBACCO NON-USER. 3017F COLORECTAL CA SCREEN DOC REV. G8510 NEG SCR Depression PT NOT ELIG F/U/PLN DOC. 3075F SYST BP GE 130 - 139MM HG. 3078F DIAST BP < 80 MM HG. * Electronic signature of Arabella Watkins MD on 08/20/2025 at 04:11 PM EST Sign off status: Pending * Provider: Arabella Watkins M.D. Date: 0 01/30/2025 Generated for Printi ng/Faxing/eTransmitting on: 1 10/20/2024 04:11 PM EST History and Physical Notes * HPI (History of Present Illness) Category Sub-Category Detail Notes Category Not es ENT/respiratory sore throat Fever HPI Patient is here today for a [facility] 6 month check up and a Medicare Annual Wellness Visit. See lab results drawn 01/27/2025 in patient chart. Physical Examination Category Sub-Category Detail Notes Section Note s GENERAL Pain Assessment: Pain level: 1, on a scale of 0-10 (with 10 being extreme pain) Functional Status Assessment: Patient response to question of how often physical health interferes with daily activities: . Almost never Able to perform ADLs-including meal preparation, grocery [...] emotional health as: calm Bladder Control Screening: Denies proble ms Examination Category Sub-Category Detail Notes Category Not es General Examination HEENT: sclera and c onjunctiva clear, PERRLA, TM's normal, translucent Heart: RSR Lungs: clear to auscultatio n Extremities: no leg edema General Appearance: NAD. Weight gain not ed Neurologic Exam: Neck: supple, no lymphaden opathy Oral cavity: Voice is hoarse. Pos tnasal drainage noted. Chest:
--- OUTSIDE RECORDS SUMMARY | 2025-03-27 08:45 | XMS_ITS ---
Author Organization [facility] Address [address] [place] [id number] Care Team Providers Care Family Independence Case Manager Name Role Phone Valentin Barr Primary Care Provider Arabella Watkins [phone] Allergies Allergen (clinical drug ingredient) Drug/Non Drug Allergy documented on EMR Reaction Allergy Type Onset Date Status citalopram CeleXA nausea Drug Allergy Active REASON FOR VISIT [facility] d/c f/u, Colonoscopy 08/2021 recommended f/u 3-5 years Medications Medication SIG (Take, Route, Frequency, Duration) Notes Start Date End Date Status Pravastatin Sodium 40 MG 1 tab(s) orally once a day (at bedtime) Active methylPREDNISolone 4 MG as directed Orally 01/30/2025 Active Medrol 4 MG as directed 08/26/2022 Not-T aking Myrbetriq 25 MG 1 tab(s) orally once a day Not-Taking Aspirin 81 81MG 1 TAB(S) ONCE A DAY *Please review and pick correct strength-formula tion from Medispan options. If intended option is not shown, discontinue and re-order from Quick Search* Not-Taking Vitamin D3 125 MCG (5000 UT) 1 tab(s) orally once a day Active FLUoxetine HCl 20 MG 1 tab(s) Orally once a day Active Niacin 500 MG 2 tab(s) orally daily Active CareTouch CPAP & BIPAP Hose DIRECTED Active Montelukast Sodium 10 MG 1 tab(s) orally once a day Active MiraLax 17 GM/SCOOP 1 scoop mixed with 8 ounces of fluid Orally Once a day Active Loratadine 10 MG 1 tab(s) orally once a day Active Arnuity Ellipta 100 MCG/ACT 1 puff(s) inhaled every 24 hours Active Donepezil HCl 10 MG 1 tablet at bedtime Orally Once a day; Duration: 30 day(s) Active Pregabalin 50 MG 1 capsule Orally Three times a day Active Problems Problem Type SNOMED Code ICD Code Onset Dates Problem Status W/U Status Risk Notes Problem Body mass index 30+ - obesity (356227636) BMI 30.0-30.9,a dult (Z68.30) Active confirmed Vital Signs Weight 242.6 lbs 03/27/2025 Blood pressure systolic 126 mm Hg 03/27/20 25 Blood pressure diastolic 60 mm Hg 025 Heart Rate 57 /min 03/27/2025 Height 75 in 03/27/2025 BMI 30.32 kg/m2 03/27/2025 Encounters Encounter Location Date Provider Diagnosis [facility] [address] [facility] [address] [facility] [address] [place], [place] [id number] 03/27/2025 Arabella Watkins Constipation K59.00 and BMI 30.0-30.9,adult Z68.30 Assessments Encounter Date Diagnosis (ICD Code) Assessment Notes Treatment Notes Treatment Clinical Notes Section Notes 03/27/2025 Constipation (ICD-10 - K59.00) Continue MiraLAX daily 03/27/2025 BMI 30.0-30.9,adult (ICD-10 - Z68.30) 03/27/2025 Other Discharge summary with available lab/diagnostic imaging results obtained and reviewed. Discharge medication list reconciled. Appropriate counseling provided. Moderate Complexity Plan Of Treatment Treatment Notes Assessment Notes Constipation Continue MiraLAX daylin ly Other Discharge summary wi th available lab/diagnostic imaging results obtained and reviewed. Discharge medication list reconciled. Appropriate counseling provided. Moderate Complexity Next Appt Details Follow Up: as scheduled, Lucinda son: Provider Name:Loly mahan, 08/20/2025 03:30:00 PM, [address] [facility], [address], [place], [place], [phone], Provider Name:Arabella Ferreira, 01/29/2026 09:30:00 AM, [address], [address], [place], [id number], Progress Notes * FIDELINA BARCLAYDOB:[birth year] (75 yo M)Acc No.[id number]:03/27/2025 Patient: FIDELINA CRUZ Provider: Arabella Watkins M.D. :1950 A ge:74 Y S ex:Male Date:03/27/2025 Address:[address] [id number] Pcp:Valentin Barr Subjective: * Chief Complaints: * 1 . [facility] d/c f/u. 2. Colonoscopy 08/2021 recommended f/u 3-5 years. * HPI: H PI: Patient is here today for a Transition of Care Visit. Discharge from the following Facility: [facility] following admission for Constipation ,Discharge date: 03/17/2025 ,Date of phone contact following discharge: 03/18/2025. . G astroenterology: He was admitted overnight last week with constipation and mild colonic ileus. He responded with conservative measures using Dulcolax and MiraLAX. He has been using MiraLAX at home since discharge and having regular normal stools. Denies abdominal pain, nausea, melena, or hematochezia. * ROS: O PTHALMOLOGY: Negative for d enies vision issues. * Medical History: H yperlipidemia, Psoriasis, Sleep apnea, Seasonal allergies, Colon polyps, Overactive bladder, Tremor, Mild cognitive deficit. * Surgical History: C -scope - Dr. Pepe 2003,2008,2014, 2018. * Hospitalization/Major Diagno stic Procedure: H ER-vertigo 6.9.17, Clinic-cough 09/28/17. * Family History: F ather: , [place], diabetes. M other: , cancer. 1 brother(s) , 1 sister(s) - healthy. 1 daughter(s) - healthy. . * Social History: C URRENT TOBACCO USE S moking Status: Patient does NOT smoke. C affeine: yes, frequency:. Marital Status: . Past smoking status: no. Alcohol: Type: , Frequency: ,Years: , Determination:. * Medications: T aking MiraLax 17 GM/SCOOP Powder 1 scoop mixed with 8 ounces of fluid Orally Once a day , Taking Donepezil HCl 10 MG Tablet 1 tablet [...] once a day (at bedtime) , Taking methylPREDNISolone 4 MG Tablet Therapy Pack as directed Orally , Not-Taking Myrbetriq 25 MG Tablet Extended Release 24 Hour 1 tab(s) orally once a day , Not-Taking Aspirin 81 81MG 1 TAB(S) ONCE A DAY , Notes to Pharmacist: *Please review and pick correct strength-formulation from Checkpoint Surgicalspan options. If intended option is not shown, discontinue and re-order from Quick Search*, Not-Taking Medrol 4 MG Tablet Therapy Pack as directed , Medication List reviewed and reconciled with the patient * Allergies: C eleXA: nausea - Side Effects. Objective: * Vitals: W t: 242.6, Temp: 98.3, BP: 126/60, HR: 57, Nurse: rui, Ht: 75, BMI:30.32. * Examination: G eneral Examination: General Appearance: N AD. A bdomen: s oft, not distended, nontender, bowel sounds present, no organomegaly or masses. Assessment: * Assessment: 1. C onstipation - K59.00 (Primary) 2 . B [place] 30.0-30.9,adult - Z68.30 ? Plan: * Treatment: 2. O thers Notes: Discharge summary with available lab/diagnostic imaging results obtained and reviewed. Discharge medication list reconciled. Appropriate counseling provided. Moderate Complexity * Procedure Codes: 9 9495 TRANS CARE MGMT 14 DAY DISCH, 1111F DSCHR MED/CURENT MED MERGE, G2211 Complex e/m visit add on, 1036F TOBACCO NON-USER, G8783 BP SCR PRFRM RCMDD DEFIND SCR INTVL, G8752 MOST RECENT SYSTOLIC BP < 140MM HG, G8754 MOST RECENT DIASTOLIC BP < 90MM HG * Follow Up: a s scheduled * Images: Billing Information: * Visit Code: 91652 Office Visit, Est Pt., Level 3. * Procedure Codes: 23618 TRANS CARE MGMT 14 DAY DISCH. 1111F DSCHR MED/CURENT MED MERGE. G2211 Complex e/m visit add on. 1036F TOBACCO NON-USER. G8783 BP SCR PRFRM RCMDD DEFIND SCR INTVL. G8752 MOST RECENT SYSTOLIC BP < 140MM HG. G8754 MOST RECENT DIASTOLIC BP < 90MM HG. * Electronic signature of Arabella Watkins MD on 08/20/2025 at 04:11 PM EST Sign off status: Pending * Provider: Arabella Watkins M.D. Date: 0 03/27/2025 Generated for Ines jeff/Cheko/Katiesmitting on: 1 10/20/2024 04:11 PM EST History and Physical Notes * HPI (History of Present Illness) Category Sub-Category Detail Notes Category Not es Gastroenterology He was admi tted overnight last week with constipation and mild colonic ileus. He responded with conservative measures using Dulcolax and MiraLAX. He has been using MiraLAX at home since discharge and having regular normal stools. Denies abdominal pain, nausea, melena, or hematochezia. HPI Patient is here today for a Transition of Care Visit. Discharge from the following Facility: [facility] following admission for Constipation ,Discharge date: 03/17/2025 ,Date of phone contact following discharge: 03/18/2025. Examination Category Sub-Category Detail Notes Category Not es General Examination Abdomen: soft, not di stended, nontender, bowel sounds present, no organomegaly or masses General Appearance: NAD
--- OUTSIDE RECORDS SUMMARY | 2025-06-26 08:02 | XMS_ITS | Encounter Summary ---
Author Organization [facility] Address [address] [place] [address] Care Team Providers Care Airport Duty Manager Name Role Phone Markusdejajori Niko Primary Care Provider Sandra Comer MD Unavailable [phone] Reason for Referral * Imaging (Routine) - Closed Specialty Diagnoses / Procedures Referred By Monica t Referred To Contact Radiology Diagnoses Mild dementia with other behavioral disturbance, unspecified dementia type (CMS/HCC) Procedures NM Brain Scan w SPECT/CT Cb Hatch MD [address] [address] Phone: tel: fax: Referral ID Status Reason Start Date Expiration Date Visits Re quested Visits Authorized [id number] Closed 05/29/2025 11/28/2026 2 2 Reason for Visit * Imaging (Routine) - Closed Specialty Diagnoses / Procedures Referred By Monica serra Referred To Contact Radiology Diagnoses Mild dementia with other behavioral disturbance, unspecified dementia type (CMS/HCC) Procedures NM Brain Scan w SPECT/CT Cb Hatch MD [address] [address] Phone: tel: fax: Referral ID Status Reason Start Date Expiration Date Visits Re quested Visits Authorized [id number] Closed 05/29/2025 11/28/2026 2 2 Encounter Details Date Type Department Care Team (Latest Contact Info) Description 06/26/2025 9:02 AM EDT - 06/26/2025 10:14 AM EDT Hospital Encounter [facility] [address] [place] [address] Mild dementia with other behavioral disturbance, unspecified dementia type ([facility]) Discharge Disposition: Home or Self Care Social History Tobacco Use Types Packs/Day Years [...] on file documented as of this encounter Medications at Time of Discharge Arnuity Ellipta 100 MCG/ACT aerosol powder 07/15/2021 Ascorbic Acid (vitamin C) 250 MG tablet Take 1 tablet (250 mg) by mouth 1 (one) time each day. cetirizine (ZyrTEC) 10 MG tablet Take 1 tablet by mouth daily. cholecalciferol (Vitamin D-3) 125 MCG (5000 UT) capsule Take 1 tablet by mouth Daily. FLUoxetine (PROzac) 20 MG capsule 04/27/2023 lamoTRIgine (LaMICtal) 25 MG tablet Take 1 tablet by mouth 2 times a day. 180 tablet 3 04/02/2025 04/02/2026 montelukast (Singulair) 10 MG tablet 07/15/2021 Multiple Vitamin (multivitamin) capsule Take 1 capsule by mouth 1 (one) time each day. niacin 500 MG tablet Take 1 tablet (500 mg) by mouth 2 (two) times a day with meals. polyethylene glycol (MiraLax) 17 GM/SCOOP powder 1 (one) time each day at the same time. pravastatin (Pravachol) 40 MG tablet 06/04/2021 pregabalin (Lyrica) 100 MG capsule Take 1 capsule by mouth 3 times a day. 270 capsule 06/10/2025 06/10/2026 albuterol 108 (90 Base) MCG/ACT inhaler If needed 03/03/2021 08/05/2025 donepezil (Aricept) 10 MG tablet Take 1 tablet (10 mg) by mouth daily. 90 tablet 1 12/30/2024 07/01/2025 documented as of this encounter Plan of Treatment Upcoming Encounters Date Type Department Care Team (Late st Contact Info) Description 10/02/2025 2:10 PM EST [facility] [address] [place] [address] Latricia Ryan PA [address] [place] [address] 02/03/2026 11:00 AM EDT [facility] [place] - [facility] [address] [place] [address] Yasmeen Roque PA [address] [place] [address] documented as of this encounter Procedures Procedure Name Priority Date/Time Associated Diagnosis Comments NM BRAIN SCAN W SPECT/CT Routine 06/26/2025 2:41 PM EDT Mild dementia with other behavioral disturbance, unspecified dementia type (CMS/HCC) documented in this encounter Results * NM Brain Scan w SPECT/CT (06/26/2025 [...] brain were acquired and processed using Siemens [employer] 16 SPECT/CT hybrid technology. Three-dimensional attenuation- corrected SPECT, CT and fused SPECT/CT tomographic images in coronal, sagittal, and transverse planes were created and reviewed interactively to optimize sensitivity, specificity, and anatomic localization. CT: low-dose, [id number], without intravenous contrast; TOTAL DLP (Dose Length [...] the brain were acquired andprocessed using Siemens [employer] Intevo 16 SPECT/CT hybrid technology.Three-dimensional attenuation- corrected SPECT, CT and fused SPECT/CTtomographic images in coronal, sagittal, and transverse planes werecreated and reviewed interactively to optimize sensitivity, specificity,and anatomic localization. CT: low-dose, [id number], withoutintravenous contrast; TOTAL DLP (Dose Length Product): [...] signing this report, I, the attending physician, attestthat I have personally reviewed the images/data for [...] dementia type (CMS/HCC) documented in this encounter Administered Medications Inactive Administered Medications - up to 3 most recent administrations Medication Order MAR Action Action Date Dose Rate Site potassium iodide (Antidote) (iOSAT) 130 MG tablet 130 mg 130 mg, Oral, Daily, First dose on Rebeca 06/26/25 at 1000, Until Discontinued, Routine, Imaging NM Protocol Orders Given 06/26/2025 9:24 AM EDT 130 mg documented in this encounter Additional Health Concerns Assessment Noted Time A fall risk assessment has been complete d for the patient 05/29/2025 12:07 PM EDT A Body Mass Index follow-up plan has been documented for the patient 05/29/2025 12:57 PM EDT documented as of this encounter Care Teams Airport Duty Manager Relationship Specialty Start Date End Date Niko Livingston PCP - General 02/11/22 Sandra Mason MD [id number] [place] [address] Consulting Physician Neurology 02/11/22 documented as of this encounter
--- OUTSIDE RECORDS SUMMARY | 2025-06-26 09:15 | XMS_ITS | Encounter Summary ---
Author Organization [facility] Address [address] [place] [address] Care Team Providers Care Data Programmer Name Role Phone Markusdejajori Niko Primary Care Provider Sandra Comer MD Unavailable [phone] Reason for Visit * Imaging (Routine) - Closed Specialty Diagnoses / Procedures Referred By Contac t Referred To Contact Radiology Diagnoses Mild dementia with other behavioral disturbance, unspecified dementia type (CMS/HCC) Procedures NM Brain Scan w SPECT/CT Cb Hatch MD [address] [place] [address] Phone: tel: fax: Referral ID Status Reason Start Date Expiration Date Visits Re quested Visits Authorized [id number] Closed 05/29/2025 11/28/2026 2 2 Encounter Details Date Type Department Care Team (Latest Contact Info) Description 06/26/2025 10:15 AM EDT - 06/26/2025 1:05 PM EDT Hospital Encounter [facility] [address] [place] [address] Discharge Disposition: Home or Self Care Social [...] Description 10/02/2025 2:10 PM EST [facility] Visit [facility] [address] [place] [address] Latricia Ryan PA [address] [place] [address] 02/03/2026 11:00 AM EDT Office Visit [facility] [place] - [facility] [address] [place] [address] Yasmeen Roque, PA [address] [place] [address] documented as of this encounter Procedures Procedure Name Priority Date/Time Associated Diagnosis Comments NM BRAIN SCAN W SPECT/CT Routine 06/26/2025 2:41 PM EDT Mild dementia with other behavioral disturbance, unspecified dementia type (CMS/HCC) documented in this encounter Visit Diagnoses Not on filedocumented in this encounter Administered Medications Inactive Administered Medications - up to 3 most recent administrations Medication Order MAR Action Action Date Dose Rate Site ioflupane (I-123) (DaTscan) radio-isotope injection 5 millicurie 5 millicurie, Intravenous, Once, 1 dose, On Rebeca 06/26/25 at 1115, Routine, Imaging NM Protocol Orders Given 06/26/2025 10:26 AM EDT 5.7 millicuries Left Hand documented in this encounter Additional Health Concerns Assessment Noted Time A fall risk assessment has been complete d for the patient 05/29/2025 12:07 PM EDT A Body Mass Index follow-up plan has been documented for the patient 05/29/2025 12:57 PM EDT documented as of this encounter Care Teams Data Programmer Relationship Specialty Start Date End Date Niko Livingston PCP - General 02/11/22 Sandra Mason MD [address] [place] [address] Consulting Physician Neurology 02/11/22 documented as of this encounter
--- OUTSIDE RECORDS SUMMARY | 2025-06-26 12:06 | XMS_ITS | Encounter Summary ---
Author Organization [facility] Address [address] [place] [address] Care Team Providers Care Saw Setter Name Role Phone MarkusdejaNiko hsieh Primary Care Provider Sandra Comer MD Unavailable [phone] Reason for Visit * Imaging (Routine) - Closed Specialty Diagnoses / Procedures Referred By Contac t Referred To Contact Radiology Diagnoses Mild dementia with other behavioral disturbance, unspecified dementia type (CMS/HCC) Procedures NM Brain Scan w SPECT/CT Cb Hatch MD [address] [place] [address] Phone: tel: fax: Referral ID Status Reason Start Date Expiration Date Visits Re quested Visits Authorized [id number] Closed 05/29/2025 11/28/2026 2 2 Encounter Details Date Type Department Care Team (Latest Contact Info) Description 06/26/2025 1:06 PM EDT - 06/26/2025 11:59 PM EDT Hospital Encounter [facility] Radiology [address] [place] [address] Discharge Disposition: Home or Self [...] Description 10/02/2025 2:10 PM EST [facility] [address] [place] [address] Latricia Ryan PA [address] [place] [address] 02/03/2026 11:00 AM EDT Office Visit [facility] [place] - Memory [address] [place] [address] Yasmeen Roque, TAMEKA [address] [place] [address] documented as of this encounter [...] brain were acquired and processed using Siemens [employer] 16 SPECT/CT hybrid technology. Three-dimensional attenuation- corrected SPECT, CT and fused SPECT/CT tomographic images in coronal, sagittal, and transverse planes were created and reviewed interactively to optimize sensitivity, specificity, and anatomic localization. CT: low-dose, [id number]-[id number], without intravenous contrast; TOTAL DLP (Dose Length [...] the brain were acquired andprocessed using Siemens [employer] Intevo 16 SPECT/CT hybrid technology.Three-dimensional attenuation- corrected SPECT, CT and fused SPECT/CTtomographic images in coronal, sagittal, and transverse planes werecreated and reviewed interactively to optimize sensitivity, specificity,and anatomic localization. CT: low-dose, [id number], withoutintravenous contrast; TOTAL DLP (Dose Length Product): [...] Sofya Rosario MD on 06/26/2025 5:37 PM Cb Hatch MD IMG NM PROCEDURES Final Resul t documented in this encounter Visit Diagnoses Not on filedocumented in this encounter Additional Health Concerns Assessment Noted Time A fall risk assessment has been complete d for the patient 05/29/2025 12:07 PM EDT A Body Mass Index follow-up plan has been documented for the patient 05/29/2025 12:57 PM EDT documented as of this encounter Care Teams Saw Setter Relationship Specialty Start Date End Date Niko Livingston PCP - General 02/11/22 Sandra Mason MD [address] [id number] Consulting Physician Neurology 02/11/22 documented as of this encounter
--- OUTSIDE RECORDS SUMMARY | 2025-07-16 11:54 | XMS_ITS | Encounter Summary ---
Author Organization [facility] Address [address] [place] [address] Care Team Providers Care Nipple Machine Operator Name Role Phone Aaliyahmaryse Niko Primary Care Provider Sandra Comer MD Unavailable [phone] Reason for Referral * Imaging (Routine) - Closed Specialty Diagnoses / Procedures Referred By Monica serra Referred To Contact Radiology Diagnoses Mild dementia with other behavioral disturbance, unspecified dementia type (CMS/HCC) Procedures PET/CT Amyloid Brain Cb Hatch MD [address] [address] Phone: tel: fax: Referral ID Status Reason Start Date Expiration Date Visits Re quested Visits Authorized [id number] Closed 05/29/2025 11/28/2026 2 2 Reason for Visit * Imaging (Routine) - Closed Specialty Diagnoses / Procedures Referred By Monica serra Referred To Contact Radiology Diagnoses Mild dementia with other behavioral disturbance, unspecified dementia type (CMS/HCC) Procedures PET/CT Amyloid Brain Cb Hatch MD [address] [address] Phone: tel: fax: Referral ID Status Reason Start Date Expiration Date Visits Re quested Visits Authorized [id number] Closed 05/29/2025 11/28/2026 2 2 Encounter Details Date Type Department Care Team (Latest Contact Info) Description 07/16/2025 12:54 PM EDT - 07/16/2025 11:59 PM EDT Hospital Encounter [facility] Radiology [address], [facility] [place] [address] Mild dementia with other behavioral disturbance, unspecified dementia type (CMS/HCC) Discharge Disposition: Home or Self Care Social [...] mouth Daily. donepezil (Aricept) 10 MG tablet TAKE 1 TABLET BY MOUTH ONCE DAILY 90 tablet 07/01/2025 FLUoxetine (PROzac) 20 MG capsule 04/27/2023 lamoTRIgine [...] Base) MCG/ACT inhaler If needed 03/03/2021 08/05/2025 documented as of this encounter Plan of Treatment Upcoming Encounters Date Type Department Care Team (Late st Contact Info) Description 10/02/2025 2:10 PM EST [facility] Visit [place] [facility] [address], 1st [place] [address] Latricia Ryan PA [address] [place] [address] 02/03/2026 11:00 AM EDT [facility] [place] [facility] [address] [place] [address] Yasmeen Roque PA [address] [place] [address] documented as of this encounter Procedures Procedure Name Priority Date/Time Associated Diagnosis Comments PET/CT AMYLOID BRAIN Routine 07/16/2025 2:53 PM EDT Mild dementia with other behavioral disturbance, unspecified dementia type ([facility]) documented in this encounter Results * PET/CT Amyloid Brain [...] 07/16/2025 4:16 PM EDT CLINICAL INDICATION: 75 lrhiw-sbsh-pzv Male diagnosed with dementia, nonvascular etiology suspected [...] and without CT-based attenuation correction. CT: Low-dose, hdm-hfhnym-jepx, without intravenous contrast. TOTAL DLP (Dose Length [...] at 1.0 or below. Procedure Note Madiha Petersen DO - 07/16/2025 CLINICAL INDICATION: 75 skudk-snjz-wel Male diagnosed with dementia, nonvascular etiologysuspected presenting [...] with and without CT-based attenuationcorrection. CT: Low-dose, qdr-qnqhfd-wggm, without intravenous contrast. TOTAL DLP (Dose Length [...] by Madiha Petersen on 07/16/2025 4:16 PM Cb Hatch MD IMG NM PROCEDURES Final Resul t documented in this encounter Visit Diagnoses Diagnosis Mild dementia with other behavioral disturbance, unspecified dementia type (CMS/HCC) documented in this encounter Administered Medications Inactive Administered Medications - up to 3 most recent administrations Medication Order MAR Action Action Date Dose Rate Site florbetapir F-18 (Amyvid) radio-isotope injection 10 millicurie 10 millicurie, Intravenous, Once, 1 dose, On Mon07/16/25 at 1500, Routine, Imaging NM Protocol Orders Given 07/16/2025 1:56 PM EDT 8.39 millicuries documented in this encounter Additional Health Concerns Assessment Noted Time A fall risk assessment has been complete d for the patient 05/29/2025 12:07 PM EDT A Body Mass Index follow-up plan has been documented for the patient 05/29/2025 12:57 PM EDT documented as of this encounter Care Teams Nipple Machine Operator Relationship Specialty Start Date End Date Niko Livingston PCP - General 02/11/22 Sandra Mason MD [address] [place] [address] Consulting Physician Neurology 02/11/22 documented as of this encounter
--- OUTSIDE RECORDS SUMMARY | 2025-07-16 11:54 | XMS_ITS | Encounter Summary ---
Author Organization Healthcare Address [address] [place] [address] Care Team Providers Care Station Installer And Repairer Name Role Phone Carinajori Niko Primary Care Provider Sandra Comer MD Unavailable [phone] Reason for Visit * Imaging (Routine) - Closed Specialty Diagnoses / Procedures Referred By Contac t Referred To Contact Radiology Diagnoses Mild dementia with other behavioral disturbance, unspecified dementia type (CMS/HCC) Procedures PET/CT Amyloid Brain Cb Hatch MD [address] [facility] [address] [place] [address] Phone: tel: fax: Referral ID Status Reason Start Date Expiration Date Visits Re quested Visits Authorized [id number] Closed 05/29/2025 11/28/2026 2 2 Encounter Details Date Type Department Care Team (Latest Contact Info) Description 07/16/2025 12:54 PM EDT - 07/16/2025 11:59 PM EDT Hospital Encounter [facility] Radiology [address] [place] [address] Discharge Disposition: Home or Self Care Social [...] Description 10/02/2025 2:10 PM EST Office Visit [place] [facility] [address], 1st [place] [address] Latricia Ryan, TAMEKA [address] [place] [address] 02/03/2026 11:00 AM EDT Office Visit [facility] [place] [facility] [address] [place] [address] Yasmeen Roque, TAMEKA [address] [place] [address] documented as of this encounter Procedures Procedure Name Priority Date/Time Associated Diagnosis Comments PET/CT AMYLOID BRAIN Routine 07/16/2025 2:53 PM EDT Mild dementia with other behavioral disturbance, unspecified dementia type (CMS/HCC) documented in this encounter Results * PET/CT [...] 07/16/2025 4:16 PM EDT CLINICAL INDICATION: 75 agvbx-yxff-iqh Male diagnosed with dementia, nonvascular etiology suspected [...] and without CT-based attenuation correction. CT: Low-dose, vcc-nnjqbu-npgg, without intravenous contrast. TOTAL DLP (Dose Length [...] Petersen DO - 07/16/2025 CLINICAL INDICATION: 75 exmch-jblu-vnn Male diagnosed with dementia, nonvascular etiologysuspected presenting [...] with and without CT-based attenuationcorrection. CT: Low-dose, utc-gsxzxd-bwls, without intravenous contrast. TOTAL DLP (Dose Length [...] documented as of this encounter Care Teams Station Installer And Repairer Relationship Specialty Start Date End Date Niko Livingston PCP - General 02/11/22 Sandra Mason MD [address] [facility] [address] [place] [address] Consulting Physician Neurology 02/11/22 documented as of this encounter
--- OUTSIDE RECORDS SUMMARY | 2025-07-31 04:45 | XMS_ITS ---
Author Organization [facility] Address [address] [place] [id number] Care Team Providers Care Mold Stamper Name Role Phone Valentin Barr Primary Care Provider [phone] Arabella Watkins [phone] Allergies Allergen (clinical drug ingredient) Drug/Non Drug Allergy documented on EMR Reaction Allergy Type Onset Date Status citalopram CeleXA nausea Drug Allergy Active REASON FOR VISIT 6 months, Needs labs, colon cancer screening, & flu vaccine Medications Medication SIG (Take, Route, Frequency, Duration) Notes Start Date End Date Status Aspirin 81 81MG 1 TAB(S) ONCE A DAY *Please review and pick correct strength-formula tion from [employer] options. If intended option is not shown, discontinue and re-order from Quick Search* Not-Taking Myrbetriq 25 MG 1 tab(s) orally once a day Not-Taking methylPREDNISolone 4 MG as directed Orally 01/30/2025 Active Montelukast Sodium 10 MG 1 tab(s) orally once a day Active CareTouch CPAP & BIPAP Hose DIRECTED Active Loratadine 10 MG 1 tab(s) orally once a day Active Pregabalin 50 MG 1 capsule Orally Three times a day Active Niacin 500 MG 2 tab(s) orally daily Active Arnuity Ellipta 100 MCG/ACT 1 puff(s) inhaled every 24 hours Active Donepezil HCl 10 MG 1 tablet at bedtime Orally Once a day; Duration: 30 day(s) Active Medrol 4 MG as directed 08/26/2022 Not-T aking Vitamin D3 125 MCG (5000 UT) 1 tab(s) orally once a day Active MiraLax 17 GM/SCOOP 1 scoop mixed with 8 ounces of fluid Orally Once a day Active Pravastatin Sodium 40 MG 1 tab(s) orally once a day (at bedtime) Active FLUoxetine HCl 20 MG 1 tab(s) Orally once a day Active Vital Signs Weight 254.6 lbs 07/31/2025 Blood pressure systolic 130 mm Hg 07/31/20 25 Blood pressure diastolic 80 mm Hg 025 Heart Rate 63 /min 07/31/2025 Height 75 in 07/31/2025 BMI 31.82 kg/m2 07/31/2025 Encounters Encounter Location Date Provider Diagnosis [facility] [address] [facility] [address] [facility] [address] [place] [id number] 07/31/2025 Arabella Watkins Generalized anxiety disorder F41.1 ; Dyslipidemia E78.5 ; Vitamin D deficiency E55.9 ; RAMSES (obstructive sleep apnea) G47.33 and Seasonal allergies J30.2 Assessments Encounter Date Diagnosis (ICD Code) Assessment Notes Treatment Notes Treatment Clinical Notes Section Notes 07/31/2025 Generalized anxiety disorder (ICD-10 - F41.1) 07/31/2025 Dyslipidemia (ICD-10 - E78.5) Reinforced diet and weight loss 07/31/2025 Vitamin D deficiency (ICD-10 - E55.9) 07/31/2025 RAMSES (obstructive sleep apnea) (ICD-10 - G47.33) 07/31/2025 Seasonal allergies (ICD-10 - J30.2) Plan Of Treatment Medication Medication Name Sig Start Date Stop Date Notes Vitamin D3 125 MCG (5000 UT) 1 tab(s) orally once a day Pravastatin Sodium 40 MG 1 tab(s) orally once a day (at bedtime) FLUoxetine HCl 20 MG 1 tab(s) Orally once a day Treatment Notes Assessment Notes Dyslipidemia Reinforced diet and weight loss Next Appt Details Follow Up: 6 Months, Reason: Provider Name:Loly mahan, 08/20/2025 03:30:00 PM, [address] [facility] [address] [facility], [address], [place], [id number], Provider Name:Arabella Ferreira, 01/29/2026 09:30:00 AM, [address], [place], [id number], Progress Notes * ISHMAEL BARCLAYB:[birth year] (75 yo M)Acc No.[id number]:07/31/2025 Progress Notes Patient: FIDELINA CRUZ Provider: Arabella Watkins M.D. :1950 A ge:75 Y S ex:Male Date:07/31/2025 Address:[address], [place], [id number] Pcp:Valentin Barr Subjective: * Chief Complaints: * 1 . 6 months. 2. Needs labs, colon cancer screening, & flu vaccine. * HPI: C ardiology: 75 year old male presents with c/o Dyslipidemia P t is here today for a 6 month check up on dyslipidemia. Pt sts he has been doing well and has no new concerns or complaints at this time. He had recent blood work for review. He has not been exercising regularly and has gained weight. * ROS: O PTHALMOLOGY: Negative for d enies vision issues. * Medical History: H yperlipidemia, Psoriasis, Sleep apnea, Seasonal allergies, Colon polyps, Overactive bladder, Tremor, Mild cognitive deficit. * Surgical History: C -scope - Dr. Pepe 2003,2008,2014, 2018. * Hospitalization/Major Diagno stic Procedure: H ER-vertigo 6.9.17, Clinic-cough 09/28/17. * Family History: F ather: , [place], diabetes. M other: , cancer. 1 brother(s) [...] *Please review and pick correct strength-formulation from [employer] options. If intended option is not shown, discontinue and re-order from Quick Search*, Not-Taking Medrol 4 MG Tablet Therapy Pack as directed , Medication List reviewed and reconciled with the patient * Allergies: C eleXA: nausea - Side Effects. Objective: * Vitals: W t: 254.6, Temp: 98.6, BP: 130/80, HR: 63, Nurse: rui, Ht: 75, BMI:31.82. * Examination: G eneral Examination: General Appearance: [...] L ABS: See labs r eviewed with patient. See copy in chart. Assessment: * Assessment: 1. D yslipidemia - E78.5 (Primary) 2 . G eneralized anxiety disorder - F41.1 3 . V itamin D deficiency - E55.9 4 . O SA (obstructive sleep apnea) - G47.33 5 . S easonal allergies - J30.2 Plan: * Treatment: 2. G eneralized anxiety disorder Refill FLUoxetine HCl Tablet, 20 MG, 1 tab(s), Orally, once a day, 90, Refills 1. 3. V itamin D deficiency Continue Vitamin D3 Capsule, 125 MCG (5000 UT), 1 tab(s), orally, once a day. * Procedure Codes: G 2211 Complex e/m visit add on, 1036F TOBACCO NON-USER, G8783 BP SCR PRFRM RCMDD DEFIND SCR INTVL, 3075F SYST BP GE 130 - 139MM HG, 3079F DIAST BP 80-89 MM HG * Follow Up: 6 Months * Images: Billing Information: * Visit Code: 31561 Office Visit, Est Pt., Level 4. * Procedure Codes: G2211 Complex e/m visit add on. 1036F TOBACCO NON-USER. G8783 BP SCR PRFRM RCMDD DEFIND SCR INTVL. 3075F SYST BP GE 130 - 139MM HG. 3079F DIAST BP 80-89 MM HG. * Electronic signature of Arabella Watkins MD on 08/20/2025 at 04:12 PM EST Sign off status: Pending * Provider: Arabella Watkins M.D. Date: Generated for Ines jeff/Cheko/Jamarcus on: 10/20/2024 04:12 PM EST History and Physical Notes * HPI (History of Present Illness) Category Sub-Category Detail Notes Category Not es Cardiology Dyslipidemia Pt is here today for a 6 month check up on dyslipidemia. Pt sts he has been doing well and has no new concerns or complaints at this time. He had recent blood work for review He has not been exercising regularly and has gained weight. Physical Examination Category Sub-Category Detail Notes Section Note s LABS See labs reviewed with patient. See c opy in chart Examination Category Sub-Category Detail Notes Category Not es General Examination HEENT: sclera and c onjunctiva clear, PERRLA, TM's normal, translucent Heart: RSR Lungs: clear to auscultatio n Extremities: no leg edema General Appearance: NAD. Weight gain not ed Neurologic Exam: Neck: supple, no lymphaden opathy Oral cavity: Voice is hoarse. Pos tnasal drainage noted. Chest:
--- OUTSIDE RECORDS SUMMARY | 2025-08-05 08:00 | XMS_ITS | Encounter Summary ---
Author Organization Healthcare Address [address] [place] [address] Care Team Providers Care Planograph Operator Name Role Phone Niko Livingston Primary Care Provider Sandra Comer MD Unavailable [phone] Reason for Visit * Reason Comments Follow-up Encounter Details Date Type Department Care Team (Latest Contact Info) Description 08/05/2025 9:00 AM EDT Office Visit [facility] [place] - [facility] [address] [place] [address] Yasmeen Roque, PA [address] [place] [address] Mild dementia with other behavioral disturbance, unspecified dementia type (CMS/HCC) (Primary Dx); Cerebrovascular disease Social History Tobacco Use Types Packs/Day Years [...] Sign Reading Time Taken Comments Blood Pressure 136/76 08/05/2025 9:14 AM EDT Pulse 55 08/05/2025 9:14 AM EDT Temperature - - Respiratory Rate 18 08/05/2025 9:14 AM EDT Oxygen Saturation 97% 08/05/2025 9:14 AM EDT Inhaled Oxygen Concentration - - Weight 116 kg (256 lb) 08/05/2025 9:14 AM EDT Height 190.5 cm (6' 3 ) 08/05/2025 9:14 AM EDT Body Mass Index 32 08/05/2025 9:14 AM EDT documented in this encounter Miscellaneous Notes * Patient Instructions - Yasmeen Roque PA - 08/05/2025 9:00 AM EDT There is vascular disease in the brain. For the cerebrovascular disease on MRI, follow up with primary care physician to manage vascular risk factors including blood pressure (target 130/80 or below), lipids (LDL target under 100, or under 70 if diabetic), and A1c. Increase physical activity and eat a balanced diet. Consider MIND diet. Continue with statin and add aspirin 81mg for secondary stroke prevention. Amyloid PET scan was negative for Alzheimer's at this time. DUNG scan was negative for Parkinson's Disease. Continue donepezil 10mg daily and follow up with us in 6 months. * Progress Notes - Yasmeen Roque PA - 08/05/2025 9:00 AM EDT Subjective Bennett Yap presents to the [facility] as a returning patient today with/for Follow-up. HPI: Mr. Yap is a 75 year old patient who is here today for follow up from his initial consult with Dr. Marquise cadet 05/29/25. He scored a 34/38 on STMS and An amyloid PET was ordered. along with DUNG scan. History per Dr. Olvera: He is seen regularly by Latricia Ryan [...] syndrome. She was sending him on for repeat imaging. I was able to review through an [...] is responding well to that mood stabilizer. Since last visit, he states his memory is about the same, maybe a little worse. states it is similar to last visit, some days are worse than others. Daughter agrees. There have been no new medical diagnoses or events since last visit. The Lamictal continues to have a positive affect on moods. Amyloid PET 07/16/25: IMPRESSION: F-18 Amyvid scan demonstrates: 1.Visual assessment shows no substantial beta-Amyloid deposition in the cerebral cortex. Therefore,this scan does not appear consistent with a diagnosis of Alzheimer's disease. 2.Centiloid scores measuring greater than 29 have been associated with a risk of progression to Alzheimer's disease over 5 years. DUNG scan 06/26/25: IMPRESSION: DaTscan SPECT/CT study demonstrates evidence of dopamine transporter deficit, which is not consistent with Parkinson's disease or other presynaptic parkinsonian condition. Past Medical History[1] Family History[2] Surgical History[3] Social History Tobacco Use Smoking status: Never Passive exposure: Never Smokeless tobacco: Never Substance Use Topics Alcohol use: Never Alcohol/week: 1.0 standard drink of alcohol Types: 1 Standard drinks or equivalent per week Medications Ordered Prior to Encounter[4] Allergies[5] All medications have been reviewed today. ROS: Listed in HPI. Otherwise negative. Objective Vitals: 08/05/25 0914 BP: 136/76 Pulse: 55 Resp: 18 SpO2: 97% Physical Exam: CN 2-12 were intact including extra ocular motility, all within normal limits. They were able to arise from a chair without difficulty. Gait was normal. Normal strength and bulk. Tone is normal. Finger taping, hand fisting, pronation/supination were all normal. Coordination as a measure of cerebellar function including the finger to nose task was intact. There was a mild essential tremor noted on exam. Discussion/Summary: Mr. Yap is a 75 year old patient who is here today with and daughter to review results of initial workup ordered by Dr. Hatch on 05/29/25. I reviewed the recent MRI from OSH in March 2025 with patient and family which shows significant vascular disease, progressed since last scan in 2022. Amyloid PET scan was negative for Alzheimer's at this time. DUNG scan was negative for Parkinson's Disease. For the cerebrovascular disease on MRI, follow up with primary care physician to manage vascular risk factors including blood pressure (target 130/80 or below), lipids (LDL target under 100, or under70 if diabetic), and A1c. Increase physical activity and eat a balanced diet. Consider MIND diet. Continue with statin and I suggested adding aspirin 81mg for secondary stroke prevention. Latricia Ryan added Lamictal for mood stabilization and it continues to work well. Continue donepezil 10mg daily and follow up with us in 6 months. Assessment/Plan: Diagnosis Plan 1. Mild dementia with other behavioral disturbance, unspecified dementia type (CMS/HCC) 2. Cerebrovascular disease Counseling Documentation: The patient, , and daughter was counseled regarding diagnostic results, risks and benefit of treatment options, instructions for management, patient and family education, and importance of compliance with treatment. Education provided was written instructions and verbal counseling. Additional time was spent in care coordination including consultation with peers and medical recordreview. The total time of encounter was 57 minutes. . [1] History reviewed. No pertinent past medical history. [2] Family History Problem Relation Name Age of Onset Colon cancer Mother Heart attack Father [3] Past Surgical History: Procedure Laterality Date COLONOSCOPY [4] Current Outpatient Medications on File Prior to Visit Medication Sig Dispense Refill Arnuity Ellipta 100 MCG/ACT aerosol powder Ascorbic [...] TABLET BY MOUTH ONCE DAILY 90 tablet 0 FLUoxetine (PROzac) 20 MG capsule lamoTRIgine (LaMICtal) [...] MG tablet pregabalin (Lyrica) 100 MG capsule Take 1 capsule by mouth 3 times a day. 270 capsule 0 albuterol 108 (90 Base) MCG/ACT inhaler If needed (Patient not taking: Reported on 08/05/2025) No current facility-administered medications on file prior to visit. [5] Allergies Allergen Reactions Citalopram Nausea Cosigned by Cb Hatch MD at 08/06/2025 8:51 AM EDT Associated attestation - Cb Hatch MD - 08/06/2025 8:51 AM EDT The patient was seen only by Advanced Practice Provider (ANANDA), and care was reviewed with me. documented in this encounter Plan of Treatment Upcoming Encounters Date Type Department Care Team (Late st Contact Info) Description 10/02/2025 2:10 PM EST Office Visit [place] [facility] [address], [address] [place] [address] Latricia Ryan, PA [address] [facility] [address] [place] [address] 02/03/2026 11:00 AM EDT Office Visit [facility] [place] [facility] [address] [place] [address] Yasmeen Roque, PA [address] [place] [address] documented as of this encounter Visit Diagnoses Diagnosis Mild dementia with other behavioral disturbance, unspecified dementia type (CMS/HCC)- Primary Cerebrovascular disease Unspecified cerebrovascular disease documented in this encounter Additional Health Concerns Assessment Noted Time A fall risk assessment has been complete d for the patient 08/05/2025 9:17 AM EDT A Body Mass Index follow-up plan has been documented for the patient 08/05/2025 10:05 AM EDT documented as of this encounter Care Teams Planograph Operator Relationship Specialty Start Date End Date Niko Livingston PCP - General 02/11/22 Sandra Mason MD [address] [place] [address] Consulting Physician Neurology 02/11/22 documented as of this encounter
--- OUTSIDE RECORDS SUMMARY | 2025-08-12 09:15 | XMS_ITS ---
Author Organization [facility] Address [address] [facility] [address] [place] [id number] Care Team Providers Care Store Team Leader Name Role Phone Valentin Barr Primary Care Provider Arabella Watkins [phone] Allergies Allergen (clinical drug ingredient) Drug/Non Drug Allergy documented on EMR Reaction Allergy Type Onset Date Status citalopram CeleXA nausea Drug Allergy Active Results Component Value Reference Range Notes Glycohemoglobin A1c (in hous e) Reviewed date:08/12/2025 05:10:12 PM Interpretation:5.4% Performing Lab: Notes/Report: 5.4% glycohemoglobin 5.4% 5 - 6.5 % REASON FOR VISIT follow up & flu vaccine Medications Medication SIG (Take, Route, Frequency, Duration) Notes Start Date End Date Status Pravastatin Sodium 40 MG 1 tab(s) orally once a day (at bedtime) Active FLUoxetine HCl 20 MG 1 tab(s) Orally onc e a day Active Vitamin D3 125 MCG (5000 UT) 1 tab(s) or ally once a day Active Niacin 500 MG 2 tab(s) orally daily Active CareTouch CPAP & BIPAP Hose DIRECTED Active Montelukast Sodium 10 MG 1 tab(s) orally once a day Active methylPREDNISolone 4 MG as directed Orally 025 Active MiraLax 17 GM/SCOOP 1 scoop mixed with 8 ounces of fluid Orally Once a day Active Donepezil HCl 10 MG 1 tablet at bedtime Orally Once a day; Duration: 30 day(s) Active Arnuity Ellipta 100 MCG/ACT 1 puff(s) in haled every 24 hours Active Pregabalin 50 MG 1 capsule Orally Thr ee times a day Active Loratadine 10 MG 1 tab(s) orally once a day Active Aspirin 81 MG 1 tablet Orally Once a day Active LaMICtal 25 MG 1 tablet Orally twic e a day Active Immunizations Vaccine Route Administration Date Status Comme nts Fluzone High Dose (65yr and older) IM Intramuscular 08/12/2025 Administered Vital Signs Weight 257.4 lbs 08/12/2025 Blood pressure systolic 132 mm Hg 08/12/20 25 Blood pressure diastolic 60 mm Hg 025 Heart Rate 64 /min 08/12/2025 Height 75 in 08/12/2025 BMI 32.17 kg/m2 08/12/2025 Encounters Encounter Location Date Provider Diagnosis [facility] [address] [place] [id number] 08/12/2025 Arabella Watkins Screening for diabet es mellitus Z13.1 and Encounter for immunization Z23 Assessments Encounter Date Diagnosis (ICD Code) Assessment Notes Treatment Notes Treatment Clinical Notes Section Notes 08/12/2025 Screening for diabetes mellitus (ICD-10 - Z13.1) 08/12/2025 Encounter for immunization (ICD-10 - Z23) Plan Of Treatment Next Appt Details Follow Up: as scheduled, Lucinda son: Provider Name:Loly mahan, 08/20/2025 03:30:00 PM, [address] [facility], [address], [place], [place], [id number], Provider Name:Arabella Ferreira, 01/29/2026 09:30:00 AM, [address] [facility], [address], [place], [place], [id number], Progress Notes * FIDELINA BARCLAYDOB:[birth year] (75 yo M)Acc No.[id number]:08/12/2025 Progress Notes Patient: FIDELINA CRUZ Provider: Arabella Watkins M.D. :1950 A ge:75 Y S ex:Male Date:08/12/2025 Address:[place], [id number] Pcp:Valentin Barr Subjective: * Chief Complaints: * 1 . Follow up & flu vaccine. * HPI: N eurology: Had follow-up last week with his PA at the [facility] regarding his cognitive deficit. He had previously undergone an amyloid scan which showed no significant amyloid deposits. He had an MRI which compared to his previous from 2 years ago showed significant microvascular changes. I have reviewed available notes of the visit at and the PA wants to be sure his cardiovascular risk factors are well-managed with recommendation for BP goal less than 130/80, LDL less than 100. He has always had normal fasting sugars and has not had an A1c. This was requested. * ROS: D ERMATOLOGY: no R barrera. n o H malick. G ASTROENTEROLOGY: no N ausea. n o V omiting. n o D iarrhea.? U ROLOGY: no D ifficulty urinating. n o B lood in urine. * Medical History: H yperlipidemia, Psoriasis, Sleep apnea, Seasonal allergies, Colon polyps, Overactive bladder, Tremor, Mild cognitive deficit - followed at [facility], Cerebrovascular disease by MRI. * Surgical History: C -scope - Dr. [...] ,Years: , Determination:. * Medications: T aking Aspirin 81 MG Tablet Delayed Release 1 tablet Orally Once a day , Taking LaMICtal 25 MG Tablet 1 tablet Orally twice a day , Taking MiraLax 17 GM/SCOOP Powder 1 scoop mixed [...] tab(s) orally once a day , Taking methylPREDNISolone 4 MG Tablet Therapy Pack as directed Orally , Taking Vitamin D3 125 MCG (5000 UT) Capsule 1 tab(s) orally once a day , Taking FLUoxetine HCl 20 MG Tablet 1 tab(s) Orally once a day , Taking Pravastatin Sodium 40 MG Tablet 1 tab(s) orally once a day (at bedtime) , Discontinued Myrbetriq 25 MG Tablet Extended Release 24 Hour 1 tab(s) orally once a day , Discontinued Aspirin 81 81MG 1 TAB(S) ONCE A DAY , Notes to Pharmacist: *Please review and pick correct strength-formulation from Scout options. If intended option is not shown, discontinue and re-order from Quick Search*, Discontinued Medrol 4 MG Tablet Therapy Pack as directed , Medication List reviewed and reconciled with the patient * Allergies: C eleXA: nausea - Side Effects. Objective: * Vitals: W t: 257.4, Temp: 97.5, BP: 132/60, HR: 64, Nurse: pe, Ht: 75, BMI:32.17. * Examination: G eneral Examination: General Appearance: N AD. H eart: R SR. L ungs:?clear to auscultation. Assessment: * Assessment: 1. S creening for diabetes mellitus - Z13.1 (Primary) 2 . E ncounter for immunization - Z23 Plan: * Treatment: * Immunizations: Fluzone High Dose (65yr and older) : 0.5 mL (Route: Intramuscular) given by AJAY Luna , Business Intelligence Engineer on Right Deltoid (Encounter for immunization) * Labs: * L ab: Glycohemoglobin A1c (in house) (Collection Date & Time - 08/12/2025) 5 .4% Value Reference Range g lycohemoglobin 5.4% 5 - 6.5 % * Toshia Sanches 08/12/2025 03:43:51 PM EDT > Provider reviewed results while patient in office.Arabella Watkins 08/12/2025 05:09:55 PM EDT > discussed with patient during office visit * Procedure Codes: 3 6416 CAPILLARY BLOOD DRAW, 20410 GLYCATED HEMOGLOBIN TEST, Modifiers: QW , 20827 FLU VACC PRSV FREE INC ANTIG, G0008 ADMN FLU VAC NO FEE SCHED SAME DAY, 3017F COLORECTAL CA SCREEN DOC REV * Preventive Medicine: Screening / Special Tests: C olonoscopy 2 021 - Dr Pepe. * Follow Up: a s scheduled * Images: Billing Information: * Visit Code: 97619 Office Visit, Est Pt., Level 3. * Procedure Codes: 86887 CAPILLARY BLOOD DRAW. 00028 GLYCATED HEMOGLOBIN TEST. Modifiers: QW 09957 FLU VACC PRSV FREE INC ANTIG. G0008 ADMN FLU VAC NO FEE SCHED SAME DAY. 3017F COLORECTAL CA SCREEN DOC REV. * Electronic signature of Arabella Watkins MD on 08/20/2025 at 04:12 PM EST Sign off status: Pending * Provider: Arabella Watkins M.D. Date: Generated for Ines jeff/Cheko/Jamarcus on: 10/20/2024 04:12 PM EST History and Physical Notes * Examination Category Sub-Category Detail Notes Category Not es General Examination Heart: RSR Lungs: clear to auscultatio n General Appearance: NAD
--- NOTE | 2025-08-20 | XR_ITS ---
FINAL REPORT CLINICAL HISTORY: PAIN FINDINGS: AP, lateral and oblique views of the left knee were obtained. There is no prior exam for comparison. There is no acute osseous abnormality of the left knee. There is degenerative joint disease. The soft tissues are normal. There is no joint effusion. IMPRESSION: No acute osseous abnormality of the left knee. Reviewed, Interpreted and Dictated by Soledad Longoria MD Transcribed by Dariana Gao Authenticated and [facility]
--- OUTSIDE RECORDS SUMMARY | 2025-08-20 16:12 | XMS_ITS | Encounter Summary ---
Author Organization Healthcare Address [address] [place] [address] Care Team Providers Care Horse Racetrack Manager Name Role Phone Niko Livingston Primary Care Provider Sandra Comer MD Unavailable [phone] Encounter Details Date Type Department Care Team (Late st Contact Info) Description 04/15/2025 Orders Only External Location [address] [place] [address] Provider, External Social History Tobacco Use Types [...] Department Care Team (Late Contact Info) Description 10/02/2025 2:10 PM EST Office Visit [place] [facility] [address], [address] [place] [phone] Latricia Ryan, TAMEKA [address] [place] [address] 02/03/2026 11:00 AM EDT [facility] [place] [facility] [address] [place] [phone] Yasmeen Roque PA [address] [place] [address] documented as of this encounter Procedures Procedure [...] documented as of this encounter Care Teams Horse Racetrack Manager Relationship Specialty Start Date End Date Niko Livingston PCP - General 02/11/22 Sandra Mason MD [address] [facility] [address] [place] [address] Consulting Physician Neurology 02/11/22 documented as of this encounter
--- OUTSIDE RECORDS SUMMARY | 2025-08-20 16:12 | XMS_ITS | Encounter Summary ---
Author Organization Healthcare Address [address] [place] [address] Care Team Providers Care Bushing And Broach Operator Name Role Phone Niko Livingston Primary Care Provider Sandra Comer MD Unavailable [phone] Encounter Details Date Type Department Care Team [...] Description 10/02/2025 2:10 PM EST Office Visit [place] [facility] [address], [address] [place] [address] Latricia Ryan PA [address] [place] [address] 02/03/2026 11:00 AM EDT [facility] [place] [facility] [address] [place] [address] Yasmeen Roque, PA [address] [place] [address] documented as of this encounter Visit Diagnoses Not on filedocumented in this encounter Additional Health Concerns Assessment Noted Time A fall risk assessment has been complete d for the patient 05/29/2025 12:07 PM EDT A Body Mass Index follow-up plan has been documented for the patient 05/29/2025 12:57 PM EDT documented as of this encounter Care Teams Bushing And Broach Operator Relationship Specialty Start Date End Date iNko Livingston PCP - General 02/11/22 Sandra Mason MD [address] [facility] [address] [place] [phone] Consulting Physician Neurology 02/11/22 documented as of this encounter
--- OUTSIDE RECORDS SUMMARY | 2025-08-20 16:12 | XMS_ITS | Clinical Summary ---
Author Organization [facility] Address [address] [place] [address] Care Team Providers Care Public Speaking Instructor Name Role Phone Yara Niko Primary Care Provider Sandra Comer MD Unavailable [phone] Allergies Active Allergy Reactions Criticality Noted Date Comments Citalopram Nausea 04/02/2025 Medications Arnuity Ellipta 100 MCG/ACT aerosol powder 1 Active montelukast (Singulair) 10 MG tablet [...] FLUoxetine (PROzac) 20 MG capsule 3 Active cholecalciferol (Vitamin D-3) 125 MCG (5000 [...] BY MOUTH ONCE DAILY 90 tablet Active albuterol 108 (90 Base) MCG/ACT inhaler If needed 08/05/20 25 Discontinue d(Per Patient Report) Active Problems Problem Noted Date Diagnosed Date Dyslipidemia 05/30/2025 Generalized anxiety disorder 05/30/2025 Obstructive sleep apnea syndrome 05/30/2025 Tremor 08/13/2021 Anxiety 08/13/2021 Neuropathy 08/13/2021 Lower urinary tract symptoms 08/13/2021 Encounters Date Type Department Care Team Description 08/05/2025 9:00 AM EDT [facility] Visit [facility] [place] [facility] [address] [place] [phone] Yasmeen Roque PA Mild dementia with other behavioral disturbance, unspecified dementia type (CMS/HCC) (Primary Dx); Cerebrovascular disease 08/05/2025 Travel 07/16/2025 12:54 PM EDT - 07/16/2025 11:59 PM EDT Hospital Encounter [facility] [address] [place] [address] Discharge Disposition: Home or Self Care 07/16/2025 12:54 PM EDT - 07/16/2025 11:59 PM EDT Hospital Encounter [facility] [address] [place] [address] Mild dementia with other behavioral disturbance, unspecified dementia type (CMS/HCC) Discharge Disposition: Home or Self Care 07/16/2025 Travel 07/01/2025 Refill [place] [facility] [address], [address] [place] [address] Latricia Ryan PA 06/26/2025 1:06 PM EDT - 06/26/2025 11:59 PM EDT Hospital Encounter [facility] [address], [address] [place] [address] Discharge Disposition: Home or Self Care 06/26/2025 10:15 AM EDT - 06/26/2025 1:05 PM EDT Hospital Encounter [facility] [address], [address] [place] [address] Discharge Disposition: Home or Self Care 06/26/2025 9:02 AM EDT - 06/26/2025 10:14 AM EDT Hospital Encounter [facility] [address] [place] [address] Mild dementia with other behavioral disturbance, unspecified dementia type (CMS/HCC) Discharge Disposition: Home or Self Care 06/26/2025 Travel 06/10/2025 Telephone [facility] [address], [address] [place] [address] Latricia Ryan PA Med Refill 06/10/2025 Refill [facility] [address], [address] [place] [phone] Latricia Ryan PA 06/04/2025 Telephone [facility] - Memory [address] [place] [address] Cb Hatch MD HCN - Patient Message 06/03/2025 Orders Only [facility] Virtual Dept. [address] [place] [address] Madiha Petersen DO 05/30/2025 Orders Only [facility] Medicine [address] [place] [address] India Gudino MD 05/29/2025 12:00 PM EDT Consult [facility] - Memory [address] [place] [phone] Cb Hatch MD Mild dementia with other [...] Mass Index 32 08/05/2025 9:14 AM EDT Plan of Treatment Upcoming Encounters Date Type Department Care Team (Late st Contact Info) Description 10/02/2025 2:10 PM EST Office Visit [place] [facility] [address], [address] [place] [address] Latricia Ryan PA [address] [place] [address] 02/03/2026 11:00 AM EDT [facility] [place] [facility] [address] [place] [address] Yasmeen Roque, PA [address] [place] [address] Health Maintenance Due Date Last Done Comments [...] or (1 - 1-dose 75+ series) 2025 [id number] Vaccine (7 - Moderna risk season) 2025 09/03/2024, 08/01/2023, 06/29/2022, Additional history exists [facility]-Influenza Vaccine (#1) 06/16/202508/01, 08/02/2022, 08/03/2021, Additional history exists [facility]-DTaP,Tdap,and Td Vaccines (2 - Td or Tdap) 01/29/2026 01/30/2016, 03/21/1996 [facility]-Hepatitis A Vaccines Aged Out 03/21/1996 No longer eligible based on patient's age to complete this topic [facility]-Pneumococcal Vaccine: 50+ Years Completed 08/03/2018, 08/05/2016, 08/09/2013 [facility]-Obesity Intervention Completed 025, 05/29/2025, 04/02/2025, Additional history exists HPV Vaccines Aged Out [...] 07/16/2025 4:16 PM EDT CLINICAL INDICATION: 75 [id number] Male diagnosed with dementia, nonvascular etiology suspected [...] and without CT-based attenuation correction. CT: Low-dose, vqy-[id number], without intravenous contrast. TOTAL DLP (Dose Length [...] Petersen DO - 07/16/2025 CLINICAL INDICATION: 75 [id number] Male diagnosed with dementia, nonvascular etiologysuspected presenting [...] with and without CT-based attenuationcorrection. CT: Low-dose, [id number]-zoznae-iocs, without intravenous contrast. TOTAL DLP (Dose Length [...] brain were acquired and processed using Siemens CitiSentvo 16 SPECT/CT hybrid technology. Three-dimensional attenuation- corrected SPECT, CT and fused SPECT/CT tomographic images in coronal, sagittal, and transverse planes were created and reviewed interactively to optimize sensitivity, specificity, and anatomic localization. CT: low-dose, rny-wygufe-zinz, without intravenous contrast; TOTAL DLP (Dose Length [...] the brain were acquired andprocessed using Siemens CitiSentvo 16 SPECT/CT hybrid technology.Three-dimensional attenuation- corrected SPECT, CT and fused SPECT/CTtomographic images in coronal, sagittal, and transverse planes werecreated and reviewed interactively to optimize sensitivity, specificity,and anatomic localization. CT: low-dose, tzs-asllam-vmss, withoutintravenous contrast; TOTAL DLP (Dose Length Product): [...] Resul t from Last 3 Months Insurance [facility] MEDICARE Care Teams Public Speaking Instructor Relationship Specialty Start Date End Date Niko Livingston PCP - General 02/11/22 Sandra Mason MD [address] [place] [address] Consulting Physician Neurology 02/11/22
--- OUTSIDE RECORDS SUMMARY | 2025-08-20 16:12 | XMS_ITS | Encounter Summary ---
Author Organization [facility] Address [address] [place] [address] Care Team Providers Care Travel Information Center Supervisor Name Role Phone Niko Livingston Primary Care Provider Sandra Comer MD Unavailable Reason for Visit * Reason Comments Med Refill Encounter Details Date Type Department Care Team (Late st Contact Info) Description 09/15/2023 Refill [place] [facility] [address], [address] [place] [address] Latricia Ryan PA [address] [place] [address] Social History Tobacco Use Types [...] Description 10/02/2025 2:10 PM EST Office Visit [place] [facility] [address], [address] [place] [address] Latricia Ryan, PA [address] [facility] [address] [place] [address] 02/03/2026 11:00 AM EDT [facility] [place] [facility] [address] [place] [address] Yasmeen Roque, PA [address] [place] [address] documented as of this encounter Visit Diagnoses Not on filedocumented in this encounter Additional Health Concerns Assessment Noted Time A fall risk assessment has been complete d for the patient 06/29/2023 2:17 PM EDT A Body Mass Index follow-up plan has been documented for the patient 06/29/2023 2:43 PM EDT documented as of this encounter Care Teams Travel Information Center Supervisor Relationship Specialty Start Date End Date Niko Livingston PCP - General 02/11/22 Sandra Mason MD [address] [facility] [address] [place] [address] Consulting Physician Neurology 02/11/22 documented as of this encounter
--- OUTSIDE RECORDS SUMMARY | 2025-08-20 16:12 | XMS_ITS | Encounter Summary ---
Author Organization Healthcare Address [address] [place] [address] Care Team Providers Care Skip Locator Name Role Phone Niko Livingston Primary Care Provider Sandra Comer MD Unavailable [phone] Encounter Details Date Type Department Care Team [...] Description 10/02/2025 2:10 PM EST Office Visit [place] [facility] [address], [address] [place] [address] Latricia Ryan PA [address] [place] [address] 02/03/2026 11:00 AM EDT [facility] [place] [facility] [address] [place] [address] Yasmeen Roque, PA [address] [place] [address] documented as of this encounter Visit Diagnoses Not on filedocumented in this encounter Additional Health Concerns Assessment Noted Time A fall risk assessment has been complete d for the patient 05/29/2025 12:07 PM EDT A Body Mass Index follow-up plan has been documented for the patient 05/29/2025 12:57 PM EDT documented as of this encounter Care Teams Skip Locator Relationship Specialty Start Date End Date Niko Livingston PCP - General 02/11/22 Sandra Mason MD [address] [facility] [address] [place] [address] Consulting Physician Neurology 02/11/22 documented as of this encounter
--- OUTSIDE RECORDS SUMMARY | 2025-08-20 16:12 | XMS_ITS | Patient Health Record ---
Author Organization [facility] Address [address] [place] [id number] Care Team Providers Care Svp Research And Strategic Analysis Name Role Phone [place] Valentin Primary Care Provider Arabella Watkins Unavailable [phone] Loly Jaquez Unavailable [phone] Allergies Allergen (clinical drug ingredient) Drug/Non Drug Allergy documented on EMR Reaction Allergy Type Onset Date Status citalopram CeleXA nausea Drug Allergy Active Results Component Value Reference Range Notes Glycohemoglobin A1c (in hous e) Reviewed date:08/12/2025 05:10:12 PM Interpretation:5.4% Performing Lab: Notes/Report: 5.4% glycohemoglobin 5.4% 5 - 6.5 % H-CMP Reviewed date:01/30/2025 01:52:21 PM Interpretation: Performing [...] ng/mL Potential Toxicity >100 ng/mL H-CMP Reviewed date:07/31/2025 10:06:21 AM Interpretation:normal Performing Lab: Notes/Report: NA 140 136-145 mmol/L K 4.0 3.5-5.1 mmoL/L CL 103 98-107 mmol/L CO2 32 22.0-30.0 mmol/L GAP 9.0 5-15 mEq/L BUN 10 9-20 mg/dl CREATT 1.00 0.66-1.25 mg/dl GFRAA 88 >60 ML/MIN EGFR 73 >60 ml/min GLU 75 74-100 mg/dl CA 8.7 8.4-10.2 mg/dl BILIT 0.8 0.2-1.3 mg/dl AST 30 17-59 U/L ALT 25 12-78 U/L TP 6.3 6.3-8.2 g/dl ALB 3.8 3.5-5.0 g/dl GLOB 2.5 1.3-3.2 g/dL AGRATIO 1.5 1.1-1.8 ALP 75 38-126 U/L H-VITAMIN D Reviewed date:07/31/2025 10:06:21 AM Interpretation:29.6 Performing Lab: Notes/Report: TVITD 29.6 30-100 ng/mL Deficient <20 ng/mL Insufficient 20-30 ng/mL Sufficient 30-100 ng/mL Potential Toxicity >100 ng/mL H-Lipid Panel Reviewed date:07/31/2025 10:06:21 AM Interpretation:LDL 106 Performing Lab: Notes/Report: Patient Fasting? Y TRIG 155 30-150 mg/dl CHOL 197 140-200 mg/dl DLDL 106.52 100-129 mg/dL VLDL 31 0-40 mg/dL HDL 47 40-60 mg/dl CHLHDL 4.2 1-3.5 H-PSA Reviewed date:07/31/2025 10:06:21 AM Interpretation:1.2 Performing Lab: Notes/Report: PSASC 1.2 0.0-4.0 ng/ml Reason For Referral No Information Medications Medication SIG (Take, Route, Frequency, Duration) Notes Start Date End Date Status MiraLax 17 GM/SCOOP 1 scoop mixed with 8 ounces of fluid Orally Once a day Active Pravastatin Sodium 40 MG 1 tab(s) orally once a day (at bedtime) Active Donepezil HCl 10 MG 1 tablet at bedtime Orally Once a day; Duration: 30 day(s) Active Pregabalin 50 MG 1 capsule Orally Thr ee times a day Active Medrol 4 MG as directed Orally 08/20/2025 Active Montelukast Sodium 10 MG 1 tab(s) orally once a day Active methylPREDNISolone 4 MG as directed Orally 025 Active Aspirin 81 MG 1 tablet Orally Once a day Active Vitamin D3 125 MCG (5000 UT) 1 tab(s) or ally once a day Active LaMICtal 25 MG 1 tablet Orally twic e a day Active FLUoxetine HCl 20 MG 1 tab(s) Orally onc e a day Active Loratadine 10 MG 1 tab(s) orally once a day Active Arnuity Ellipta 100 MCG/ACT 1 puff(s) in haled every 24 hours Active Niacin 500 MG 2 tab(s) orally daily Active CareTouch CPAP & BIPAP Hose DIRECTED Active Immunizations Vaccine Route Administration Date Status Comme nts COVID 19 Moderna IM Intramuscular 10/21/2020 Administered COVID 19 Moderna IM Intramuscular 11/18/2020 Administered COVID 19 Moderna Unknown 06/25/2021 Administered COVID 19 Moderna IM Intramuscular 06/25/2021 Administered Covid Booster was given by [facility] Fluzone High Dose (65yr and older) IM [...] (65yr and older) IM Intramuscular 08/01/2024 Administered Fluzone High Dose (65yr and older) IM Intramuscular 08/12/2025 Administered PNEUMOVAX 23 VACCINE IM Intramuscular 08/09/2013 [...] Status Risk Notes Problem Vitamin D deficiency (64531697) Vitamin D deficiency (E55.9) Active confirmed Problem Seasonal allergy (784531448) Seasonal allergies (J30.2) Active confirmed Problem Body mass index 30+ - obesity (404136540) BMI 30.0-30.9,adult (Z68.30) Active confirmed Problem Acute constipation (184014517) Acute constipation (K59.00) Active confirmed Problem Generalized anxiety disorder (93711894) Generalized anxiety disorder (F41.1) Active confirmed Problem Neuropathy (237773337) Neuropathy (G62.9) Active confirmed Problem Obstructive sleep apnea syndrome (21218927) RAMSES (obstructive sleep apnea) (G47.33) Active confirmed Problem Body mass index 30.00 to 34.99 (273440255156079 ) BMI 31.0-31.9,adult (Z68.31) Active confirmed Problem Dyslipidemia (555713712) Dyslipidemia (E78.5) Active confirmed Vital Signs Heart Rate 62 /min 08/20/2025 Blood pressure diastolic 70 mm Hg 08/20/2025 Height 75 in 08/20/2025 Blood pressure systolic 134 mm Hg 08/20/2025 Weight 261 lbs 08/20/2025 BMI 32.62 kg/m2 08/20/2025 Encounters Encounter Location Date Provider Diagnosis [facility] [address] [facility] [address] [place], [place] [id number] 01/30/2025 R Олег Watkins Adult general medica l examination Z00.00 ; Generalized anxiety disorder F41.1 ; Vitamin D deficiency E55.9 ; Dyslipidemia E78.5 ; RAMSES (obstructive sleep apnea) G47.33 ; Seasonal allergies J30.2 and BMI 31.0-31.9,adult Z68.31 [facility] [address] [place], [place] [id number] 03/27/2025 R Олег Watkins Constipation K59.00 and BMI 30.0-30.9,adult Z68.30 [facility] [address] [place], [place] [id number] 07/31/2025 R Олег Huertafleet Generalized anxiety disorder F41.1 ; Dyslipidemia E78.5 ; Vitamin D deficiency E55.9 ; RAMSES (obstructive sleep apnea) G47.33 and Seasonal allergies J30.2 [facility] [address] [place], [place] [id number] 08/12/2025 R Олег Watkins Screening for diabet es mellitus Z13.1 and Encounter for immunization Z23 [facility] [address] [place], [place] [id number] 08/20/2025 Loly Jaquez Pain, joint, knee, l eft M25.562 [facility] [address] [place], [place] [id number] 03/17/2025 Valentin [place] [facility] [address] [place], [place] [id number] 03/17/2025 Valentin [place] [facility] [address] [place] [id number] 04/07/2025 Valentin [place] [facility] [address] [place] [id number] 08/05/2025 R Олег Watkins [facility] [address] [place] [id number] 08/18/2025 Valentin [place] Assessments Encounter Date Diagnosis (ICD Code) Assessment Notes Treatment Notes Treatment Clinical Notes Section Notes 01/30/2025 Generalized anxiety disorder (ICD-10 - F41.1) 01/30/2025 Adult general medical examination (ICD-10 - Z00.00) Patient instructed to return to office Annually for Annual Wellness Visits to include annual screenings of Pain assessment, Functional Ability assessment, Cognitive Ability assessment, Fall Risk assessment, Depression screening and Bladder control screening. 03/27/2025 Constipation (ICD-10 - K59.00) Continue MiraLAX daily 03/27/2025 BMI 30.0-30.9,adult (ICD-10 - Z68.30) 07/31/2025 Dyslipidemia (ICD-10 - E78.5) Reinforced diet and weight loss 08/12/2025 Screening for diabetes mellitus (ICD-10 - Z13.1) 08/12/2025 Encounter for immunization (ICD-10 - Z23) 08/20/2025 Pain, joint, knee, left (ICD-10 - M25.562) 07/31/2025 Generalized anxiety disorder (ICD-10 - F41.1) 07/31/2025 Vitamin D deficiency (ICD-10 - E55.9) 01/30/2025 Vitamin D deficiency (ICD-10 - E55.9) 07/31/2025 RAMSES (obstructive sleep apnea) (ICD-10 - G47.33) 01/30/2025 Dyslipidemia (ICD-10 - E78.5) Reinforced diet and weight loss 01/30/2025 RAMSES (obstructive sleep apnea) (ICD-10 - G47.33) 07/31/2025 Seasonal allergies (ICD-10 - J30.2) 01/30/2025 Seasonal allergies (ICD-10 - J30.2) 01/30/2025 BMI 31.0-31.9,adult (ICD-10 - Z68.31) 03/27/2025 Other Discharge summary with available lab/diagnostic imaging results obtained and reviewed. Discharge medication list reconciled. Appropriate counseling provided. Moderate Complexity Plan Of Treatment Pending Test Test Name Order Date X ray : Knee, left 08/20/2025 Next Appt Details Provider Name:Loly mahan, 08/20/2025 03:30:00 PM, [address], [place], [place], [id number], Provider Name:Arabella Ferreira, 01/29/2026 09:30:00 AM, [address], [place], [id number], Insurance Providers Payer Name Payer Address Payer Phone Subscriber Number Group Number Insured Name Patient Relationship to Insured Coverage Start Date Coverage End Date MEDICARE PART B [address] [address] [place] [id number] FIDELINA BARCLAY Self - patient is the insured [facility] [employer] [address] [place] [id number] FIDELINA BARCLAY Self - patient is the insured Medications Administered Medication Instructions Date of Administration Dosage Notes Dexamethasone 12/29/2012 1 mL Dexamethasone 12/04/2015 1 mL Dexamethasone 09/27/2016 1 mL Medical (General) History Medical History History ICD Code hyperlipidemia psoriasis Sleep apnea Seasonal allergies Colon polyps Overactive bladder Tremor Mild cognitive deficit - [facility] Cerebrovascular disease by MRI Surgical History Surgery Date(Month/Year) C-scope - Dr. Pepe 2003,2008,2014, 20 18 Hospitalization History Reason Date(Month/Year) [facility]vertigo 6.9.17 [facility] 09/28/17
--- OUTSIDE RECORDS SUMMARY | 2025-08-20 16:12 | XMS_ITS | Encounter Summary ---
Author Organization Healthcare Address [address] [place] [address] Care Team Providers Care Coffin Maker Name Role Phone Niko Livingston Primary Care Provider Sandra Comer MD Unavailable [phone] Reason for Visit * Reason Comments Med Refill Encounter Details Date Type Department Care Team (Late st Contact Info) Description 07/01/2025 Refill [place] [facility] [address] [place] [address] Latricia Ryan, TAMEKA [address] [place] [address] Social History Tobacco Use Types [...] Description 10/02/2025 2:10 PM EST Office Visit [place] [facility] [address] [place] [address] Latricia Ryan, PA [address] [facility] [address] [place] [address] 02/03/2026 11:00 AM EDT Office Visit [facility] [place] - Memory [address] [place] [address] Yasmeen Roque, PA [address] [place] [address] documented as of this encounter Visit Diagnoses Not on filedocumented in this encounter Additional Health Concerns Assessment Noted Time A fall risk assessment has been complete d for the patient 05/29/2025 12:07 PM EDT A Body Mass Index follow-up plan has been documented for the patient 05/29/2025 12:57 PM EDT documented as of this encounter Care Teams Coffin Maker Relationship Specialty Start Date End Date Niko Livingston PCP - General 02/11/22 Sandra Mason MD [id number] [place] [address] Consulting Physician Neurology 02/11/22 documented as of this encounter
--- OUTSIDE RECORDS SUMMARY | 2025-08-20 16:12 | XMS_ITS | Encounter Summary ---
Author Organization [facility] Address [address] [place] [address] Care Team Providers Care Glove Cuffer Name Role Phone Niko Livingston Primary Care Provider Sandra Comer MD Unavailable Reason for Visit * Reason Comments Med Refill Encounter Details Date Type Department Care Team (Late st Contact Info) Description 07/29/2023 Refill [place] [facility] [address] [place] [address] Latricia Ryan PA [address] [place] [address] Social History Tobacco Use Types [...] Description 10/02/2025 2:10 PM EST Office Visit [place] [facility] [address] [place] [address] Latricia Ryan, PA [address] [facility] [address] [place] [address] 02/03/2026 11:00 AM EDT Office Visit [facility] [place] - [facility] [address] [place] [address] Yasmeen Roque PA [address] [place] [address] documented as of this encounter Visit Diagnoses Not on filedocumented in this encounter Additional Health Concerns Assessment Noted Time A fall risk assessment has been complete d for the patient 06/29/2023 2:17 PM EDT A Body Mass Index follow-up plan has been documented for the patient 06/29/2023 2:43 PM EDT documented as of this encounter Care Teams Glove Cuffer Relationship Specialty Start Date End Date Niko Livingston PCP - General 02/11/22 Sandra Mason MD [address] [facility] [place] [address] Consulting Physician Neurology 02/11/22 documented as of this encounter
--- OUTSIDE RECORDS SUMMARY | 2025-08-20 16:12 | XMS_ITS | Encounter Summary ---
Author Organization Healthcare Address [address] [place] [address] Care Team Providers Care Leather Goods I Assembler Name Role Phone Niko Livingston Primary Care Provider Sandra Comer MD Unavailable [phone] Encounter Details Date Type Department Care Team (Latest Contact Info) Description 08/05/2025 Travel Social History Tobacco Use Types Packs/Day [...] Description 10/02/2025 2:10 PM EST [facility] Visit [place] [facility] [address] [place] [address] Latricia Ryan PA [address] [place] [address] 02/03/2026 11:00 AM EDT [facility] [place] [facility] [address] [place] [address] Yasmeen Roque, PA [address] [place] [address] documented as of this encounter Visit Diagnoses Not on filedocumented in this encounter Additional Health Concerns Assessment Noted Time A fall risk assessment has been complete d for the patient 08/05/2025 9:17 AM EDT A Body Mass Index follow-up plan has been documented for the patient 08/05/2025 10:05 AM EDT documented as of this encounter Care Teams Leather Goods I Assembler Relationship Specialty Start Date End Date Niko Livingston PCP - General 02/11/22 Sandra Mason MD [address] [facility] [address] [place] [address] Consulting Physician Neurology 02/11/22 documented as of this encounter
--- OUTSIDE RECORDS SUMMARY | 2025-08-20 16:13 | XMS_ITS | Encounter Summary ---
Author Organization Healthcare Address [address] [place] [address] Care Team Providers Care Gang Pusher Name Role Phone Niko Livingston Primary Care Provider Sandra Comer MD Unavailable [phone] Reason for Visit * Reason Onset Date Comments HCN - Patient Message 06/04/2025 Encounter Details Date Type Department Care Team (Late st Contact Info) Description 06/04/2025 Telephone [facility] Neuroscience [place] - Memory [address] [place] [address] Cb Hatch MD [address] [place] [address] HCN - Patient Message Social [...] time of day to reach caller: Trevor [phone] Note: Please do not reply to this [...] Description 10/02/2025 2:10 PM EST Office Visit [place] [facility] [address], [address] [place] [address] Latricia Ryan PA [address] [address] 02/03/2026 11:00 AM EDT Office Visit [facility] [place] - [facility] [address] [place] [address] Yasmeen Roque, PA [address] [place] [address] documented as of this encounter Visit Diagnoses Not on filedocumented in this encounter Additional Health Concerns Assessment Noted Time A fall risk assessment has been complete d for the patient 05/29/2025 12:07 PM EDT A Body Mass Index follow-up plan has been documented for the patient 05/29/2025 12:57 PM EDT documented as of this encounter Care Teams Gang Pusher Relationship Specialty Start Date End Date Niko Livingston PCP - General 02/11/22 Sandra Mason MD [address] [address] Consulting Physician Neurology 02/11/22 documented as of this encounter
--- OUTSIDE RECORDS SUMMARY | 2025-08-20 16:13 | XMS_ITS | Encounter Summary ---
Author Organization Healthcare Address [address] [place] [address] Care Team Providers Care Shift Lab Technician Name Role Phone Yara Niko Primary Care Provider Sandra Comer MD Unavailable Reason for Visit * Reason Comments Med Refill Encounter Details Date Type Department Care Team (Late st Contact Info) Description 06/10/2025 Telephone [place] [facility] [address] [place] [address] Latricia Ryan, PA [address] [place] [address] Med Refill Social History Tobacco [...] Reason for Call: Patient daughter calling to [facility] follow up with provider only asking for 1st or 3rd week in Oct in afternoon Best contact number and optimal time of day to reach caller: [phone] Note: Please do not reply to this [...] Visit [place] [facility] [address] [place] [address] Latricia Ryan, PA [id number] [place] [address] 02/03/2026 11:00 AM EDT [facility] [place] - [facility] [address] [place] [address] Yasmeen Roque, PA [address] [place] [address] documented as of this encounter Visit Diagnoses Not on filedocumented in this encounter Additional Health Concerns Assessment Noted Time A fall risk assessment has been complete d for the patient 05/29/2025 12:07 PM EDT A Body Mass Index follow-up plan has been documented for the patient 05/29/2025 12:57 PM EDT documented as of this encounter Care Teams Shift Lab Technician Relationship Specialty Start Date End Date Niko Livingston PCP - General 02/11/22 Sandra Mason MD [address] [facility] [place] [address] Consulting Physician Neurology 02/11/22 documented as of this encounter
== END 2025-08-20 23:59 | disposition home or self-care (01) ==
LOC: RAD 16:09
PROVIDERS: PCP Family Medicine; Visit Provider Physician Assistant
DX: M17.12 Unilateral primary osteoarthritis, left knee
CPT/HCPCS: 73562

== ENCOUNTER 2025-09-03 08:08 | Outpatient (CLI) | payer MEDICARE, SELFPAY ==
--- NOTE | 2025-09-03 08:30 | MR_ITS ---
FINAL REPORT TECHNIQUE: Multiplanar and multisequence imaging the right knee was obtained without contrast. CLINICAL HISTORY: worsening left knee pain, knee is giving out, no new injury injured it playing basketball 45 years ago FINDINGS: Bones: There is no acute fracture or marrow edema. There is tricompartmental degenerative joint disease with grade 3/4 cartilage loss of the medial patellar facet and grade 3 cartilage loss in the medial compartment. There are no full thickness cartilage defects. Menisci: There is a complex tear at the posterior horn of the medial meniscus involving the root attachment. Anterior horn and lateral meniscus are intact. Ligaments: There is a mild sprain of the medial collateral ligament. No cruciate or collateral ligament tear is present. Tendons/Muscles: The quadriceps and patellar tendons are intact. The biceps femoris tendon and iliotibial tract are intact. The popliteus tendon is unremarkable. Other: There is a moderate size joint effusion. A small popliteal cyst is seen. Abnormal signal intensity extends from the inferior aspect of the cyst into the soft tissues which could represent leak or rupture. Remaining soft tissues are normal. IMPRESSION: 1. Complex tear of the posterior horn of the medial meniscus. 2. Degenerative joint disease with cartilage loss. 3. Mild MCL sprain. 4. Possible leaking or ruptured popliteal cyst. Reviewed, Interpreted and Dictated by Soledad Longoria MD Transcribed by Alina Malave Authenticated and [facility]
== END 2025-09-03 23:59 | disposition home or self-care (01) ==
LOC: RAD 08:12
PROVIDERS: PCP Family Medicine; Visit Provider Physician Assistant
DX: S83.232A Complex tear of medial meniscus, current injury, left knee, initial encounter (principal); S83.412A Sprain of medial collateral ligament of left knee, initial encounter; M17.12 Unilateral primary osteoarthritis, left knee; S83.422A Sprain of lateral collateral ligament of left knee, initial encounter; R93.6 Abnormal findings on diagnostic imaging of limbs
CPT/HCPCS: 73721

== ENCOUNTER 2025-10-01 13:31 | Outpatient (RCR) | payer MEDICARE, SELFPAY ==
--- NOTE | 2025-10-01 14:45 | [facility].PTOPEV ---
PT Evaluation Rehab PT Outpatient Evaluation Start: 10/01/25 13:53 Freq: Status: Active Protocol: Document 10/01/25 13:53 SIA (Rec: 10/01/25 14:44 SIA [id number]) E-signed By Andressa Nance, PT Outpatient Therapy Subjective History Subjective History This is an initial PT evaluation for 75 y/o male, Bennett Yap, who presents to PT with referral for Complex tear of medial meniscus, Sprain of lateral collateral ligament, and instability of left knee joint . Pt visited Dr. Newberry last month for his knee pain. Pt received a cortisone injection and reports moderate relief in his symptoms. Pt reports his initial knee injury/accident happened ~45 years ago when playing ball. Pt denies recent accident leading to acute knee injury. Pt reports his pain comes and goes. Pt reports a recent bout of inactivity which he believes lead to his increased knee pain. Once pt became more active, he had a bout of severe left knee pain. Pt reports he wears a brace in the mornings to assist with knee pain and stability. Pt reports he hasn't had much pain recently since his injection. Pt's goal for PT is to strengthen his R leg . Pt denies LLE numbness/tingling (except for B foot neuropathy), clicking, or catching. Imaging: - MRI confirmed: 1. Complex tear of the posterior horn of the medial meniscus. 2. Degenerative joint disease with cartilage loss. 3. Mild MCL sprain. 4. Possible leaking or ruptured popliteal cyst. Occupation: retired. New diagnosis of No cancer in past 12 months? Chief Complaint Pain Symptoms Relieved By Rest/Positioning,Prescription Meds Symptoms Aggravated Sitting,Physical Activity,Walking By Prior Functional None Limitations Current Functional Standing,Squatting,Walking,Balance,Bending/Stooping Limitations Symptom Description Constant but Variable Level of pain today 2 (0-10) Pain scale - at its 2 best (0-10) Pain scale - at its 9 worst (0-10) Hip/Knee Eval Gait Observation General Gait Pattern Antalgic Gait Observation Assistive Device Assistive Devices None / NA Palpation Tenderness left Knee Palpation Tenderness Finding Knee Palpation 1/4 TTP medial and lateral joint line Overall Comment MMT Hip Flexion Strength 4- Good- Grade Hip Abduction 4 Good Strength Grade Hip Adduction 4 Good Strength Grade Hip Extension 4 Good Strength Grade Knee Extension 4 Good Strength Grade Knee Flexion 4 Good Strength Grade ROM Knee Extension 0, non-painful Active Range of Motion (degrees) Knee Flexion Active 125, non-painful Range of Motion ( degrees) Special Tests Knee Apprehension Negative Left Test Knee Anterior Negative Left Melody Test Knee Posterior Sag ( Negative Left [place] Drawer) Test Knee Valgus Stress Negative Left Test Knee Varus Stress Negative Left Test Knee Taran Test Negative Left Patella Apprehension Negative Left Test Lower Extremity Functional Index Activities Today, do you or would you have any difficulty at all with: a.Any of your usual A little bit of difficulty work, housework or school activities b. Your usual A little bit of difficulty hobbies, recreational or sporting activities c. Getting into or No difficulty out of the bath d. Walking between No difficulty rooms e. Putting on your No difficulty shoes or socks f. Squatting A little bit of difficulty g. Lifting an object No difficulty , like a bag of groceries from the floor h. Performing light No difficulty activities around your home i. Performing heavy A little bit of difficulty activities around your home j. Getting into or No difficulty out of a car k. Walking 2 blocks A little bit of difficulty l. Walking a mile Moderate difficulty m. Going up or down No difficulty 10 stairs (about 1 flight of stairs) n. Standing for 1 Moderate difficulty hour o. Sitting for 1 No difficulty hour p. Running on even Moderate difficulty ground q. Running on uneven Moderate difficulty ground r. Making sharp A little bit of difficulty turns while running fast s. Hopping Moderate difficulty t. Rolling over in No difficulty bed LEFI Score Lower Extremity 64 Functional Index Score Outpatient Therapy Assessment Impairments Problems/ Impaired Strength,Impaired Transfers,Impaired Gait Impairmments Pattern,Impaired Walking,Impaired Standing,Impaired Squatting,Impaired Bending,Impaired Recreational Activities,Subjective C/O Pain Prognosis Rehab Potential Good Comment Pt presents with impaired LLE strength and subjective c /o pain. Pt would benefit from skilled PT to address deficits and improve QOL. PT provided pt with HEP (4-way hip, STS, calf raises, HS curls, and LAQ. Ayaz MADRID provided). Pt demo'd good understanding to all exercises. Clinical Impression Consistent with No Diagnosis PT Patient Goals PT Patient Goals PT Short Term In 3 weeks, pt will: Patient Goals 1) Verbalize IND with HEP to improve self-maintenance of symptoms/deficits. 2) Improve LEFS score to 66/80 to improve BLE functioning for daily tasks. 3) Tolerate one mod intensity endurance intervention for 10 minutes. 4) Improve LLE strength by 1/5 MMT grade to improve functional strength. 5) Verbalize 48 hour L knee pain average of 3/10. PT Longterm Patient In 6 weeks, pt will: Goals 1) Verbalize IND with HEP to improve self-maintenance of symptoms/deficits. 2) Improve LEFS score to 70/80 to improve BLE functioning for daily tasks. 3) Tolerate one mod intensity endurance intervention for 15 minutes. 4) Improve LLE strength to 5/5 MMT globally to return to PLOF and achieve pt's personal goal. 5) Verbalize 48-hour L knee pain average of 1-2/10 to demo decreased symptoms severity. Outpatient Therapy Plan of Care Treatment Plan May Include Therapeutic Exercise Yes Including Home Exercise Program Manual Therapy Yes Techniques Neuromuscular Re- Yes education Therapeutic Yes Activities to Return to Previous Functional/Work Level Gait Training Yes ADL/Self Care Yes Education Thermal Modalities Yes Eval/Re-Eval Yes Frequency Times per week 1-2x weekly Duration Number of Weeks 5-6 weeks Addendums This patient is a No candidate for social or vocational rehab ? Patient/Guardian Yes verbally acknowledges understanding of treatment program and consents to further treatment? Patient/Guardian Yes verbally acknowledges understanding of diagnosis, prognosis and goals for treatment? Eval Complexity PT Charges 61593 - Moderate Complexity Shoulder/Elbow Eval Shoulder Objective Measurements Elbow Objective Measurements PHYSICIAN CERTIFICATION: I certify the specified therapy services for Bennett Yap are required, authorized, and reviewed every 30 days.
== END 2025-10-01 23:59 | disposition home or self-care (01) ==
LOC: PT 13:31
PROVIDERS: PCP Family Medicine; Visit Provider Physician Assistant
DX: S83.232D Complex tear of medial meniscus, current injury, left knee, subsequent encounter (principal); S83.422D Sprain of lateral collateral ligament of left knee, subsequent encounter; M25.362 Other instability, left knee; X58.XXXD Exposure to other specified factors, subsequent encounter
CPT/HCPCS: 97162